=== PATIENT | female | born 1935 | race Caucasian/White ===

== ENCOUNTER 2017-03-06 12:58 | Inpatient (IN) | payer MEDICARE, OTHER ==
[2017-03-06] VITALS (13 sets, daily range): BP systolic 97–145; BP diastolic 41–63
[~2017-03-06 12:58] MED LIST: AMOX500C PO; ASPI325T8 PO; ATOR40TA59 PO; CALC-157 PO; CALC667C6 PO; FURO20TA3 PO; IBAN150T4 PO; LEVO100T5 PO; LISI-338 PO; LISI10TA2 PO; MULT-245 PO; NAPR250T2 PO; OMEG300C PO; OXYC1TAB7 PO; POTA10CA PO; VITA400C6 PO
--- NOTE | 2017-03-06 13:26 | ED.ADGEN ---
Past History Past Medical History: CAD, Hypertension Additional Past Medical Histor: syncope Past Surgical History: Appendectomy, Tonsillectomy Alcohol Use: None Drug Use: None Adult General HPI HPI Patient is a [81-year-old woman, history of hypertension, CAD, atrial fibrillation with a vChattertronic monitor in place, who presents to the emergency department with a complaint of headache and hypertension that began around 2:00 in the morning. Patient states that she awoke and was experiencing a headache across the entire back and top part of her head. She denies any vision changes, any weakness, numbness, tingling, chest pain or shortness breath. States she does feel nauseous but has had no vomiting. She denies any injuries. She states that she awoke last Friday, and had a similar episode of headache and hypertension, states her blood pressure was "200/100 and something". She states at that time she was able to be seen by her primary care provider, Dr. Prescott in the office, and he did increase her lisinopril from the grandson 10 mg daily. Patient states she is taking the medication has not experienced any problems until today when she woke this morning as described. Patient states the headache isn't persistent, prompting her to come to the ED for additional evaluation. She denies any injuries, any other symptoms except those above. No recent travel or surgery, no sick contacts or exposures. No urinary complaints. Blood pressure upon arrival to the emergency department is 193/102, heart rate of 85, oxygen saturation of 97% on room air, respiratory rate is 20 and unlabored. Review of Systems Review of Systems Constitutional: Denies fever or chills [] Eyes: Denies change in visual acuity, redness, or eye pain [] HENT: Denies nasal congestion or sore throat [] Respiratory: Denies cough or shortness of breath [] Cardiovascular: No additional information not addressed in HPI [] GI: Denies abdominal pain, nausea, vomiting, bloody stools or diarrhea [] : Denies dysuria or hematuria [] Musculoskeletal: Denies back pain or joint pain [] Integument: Denies rash or skin lesions [] Neurologic: Denies focal weakness or sensory changes. Headache. [] Endocrine: Denies polyuria or polydipsia [] Current Medications Current Medications Current Medications Medications (Trade) Dose Ordered Sig/James Start Time Stop Time Status Last Admin Dose Admin Acetaminophen (Tylenol) 1,000 mg 1X ONCE 03/06/17 14:30 03/06/17 14:31 DC Labetalol HCl (Normodyne) 10 mg 1X ONCE 03/06/17 14:30 03/06/17 14:31 DC 03/06/17 14:25 10 MG Nicardipine HCl 50 mg/Sodium Chloride 270 ml @ 0 mls/hr CONT PRN 03/06/17 14:45 Allergies Allergies Allergies Coded Allergies Type Severity Reaction Last Updated Verified fluorouracil Allergy Intermediate Rash 06/12/16 Yes venom-honey bee Allergy Intermediate SYNCOPE 06/12/16 Yes Physical Exam Physical Exam Constitutional: Well developed, well nourished, no acute distress, non-toxic appearance. [] HENT: Normocephalic, atraumatic, bilateral external ears normal, oropharynx moist, no oral exudates, nose normal. [] Eyes: PERRLA, EOMI, conjunctiva normal, no discharge. [] Neck: Normal range of motion, no tenderness, supple, no stridor. [] Cardiovascular:Heart rate regular rhythm, no murmur, S1, S2, rubs or gallops. [] Lungs & Thorax: Bilateral breath sounds clear to auscultation , no wheezing, rhonchi, rales. No chest wall crepitus or tenderness. [] Abdomen: Bowel sounds normal, soft, no tenderness, no rebound, rigidity, no guarding, no masses, no pulsatile masses. [] Skin: Warm, dry, no erythema, no rash. [] Back: No tenderness, no CVA tenderness. [] Extremities: No tenderness, no cyanosis, no clubbing, ROM intact, no edema. Negative Homans sign. [] Neurologic: Alert and oriented X 3, normal motor function, normal sensory function, no focal deficits noted. Patient with 5-5 strength in all extremities , with sensation intact, cranial nerves are intact. [] Psychologic: Affect normal, judgement normal, mood normal. [] Current Patient Data Vital Signs Vital Signs Date Time Temp Pulse Resp B/P (MAP) Pulse Ox O2 Delivery O2 Flow Rate FiO2 03/06/17 14:25 80 164/110 03/06/17 13:00 98.4 18 97 Room Air Lab Results Laboratory Tests Test 03/06/17 13:03/06/17 14:24 White Blood Count 6.1 x10^3/uL (4.0-11.0) Red Blood Count 4.98 x10^6/uL (3.50-5.40) Hemoglobin 14.4 g/dL (12.0-15.5) Hematocrit 43.6 % (36.0-47.0) Mean Corpuscular Volume 88 fL (79-100) Mean Corpuscular Hemoglobin 29 pg (25-35) Mean Corpuscular Hemoglobin Concent 33 g/dL (31-37) Red Cell Distribution Width 13.6 % (11.5-14.5) Platelet Count 196 x10^3/uL (140-400) Neutrophils (%) (Auto) 55 % (31-73) Lymphocytes (%) (Auto) 32 % (24-48) Monocytes (%) (Auto) 12 % (0-9) H Eosinophils (%) (Auto) 2 % (0-3) Basophils (%) (Auto) 1 % (0-3) Neutrophils # (Auto) 3.4 x10^3uL (1.8-7.7) Lymphocytes # (Auto) 1.9 x10^3/uL (1.0-4.8) Monocytes # (Auto) 0.7 x10^3/uL (0.0-1.1) Eosinophils # (Auto) 0.1 x10^3/uL (0.0-0.7) Basophils # (Auto) 0.0 x10^3/uL (0.0-0.2) Prothrombin Time 11.0 SEC (9.4-11.4) Prothrombin Time INR 1.1 (0.9-1.1) PTT 27 SEC (23-33) Sodium Level 141 mmol/L (136-145) Potassium Level 4.3 mmol/L (3.5-5.1) Chloride Level 108 mmol/L (98-107) H Carbon Dioxide Level 26 mmol/L (21-32) Anion Gap 7 (6-14) Blood Urea Nitrogen 22 mg/dL (7-20) H Creatinine 1.2 mg/dL (0.6-1.0) H Estimated GFR (Cockcroft-Gault) 43.0 BUN/Creatinine Ratio 18 (6-20) Glucose Level 90 mg/dL (70-99) Calcium Level 9.1 mg/dL (8.5-10.1) Total Bilirubin 0.7 mg/dL (0.2-1.0) Aspartate Amino Transferase (AST) 24 U/L (15-37) Alanine Aminotransferase (ALT) 31 U/L (14-59) Alkaline Phosphatase 77 U/L (46-116) Troponin I Quantitative < 0.017 ng/mL (0-0.055) DK-Gaw-Y-Type Natriuretic Peptide 434 pg/mL (0-449) Total Protein 7.2 g/dL (6.4-8.2) Albumin 3.8 g/dL (3.4-5.0) Albumin/Globulin Ratio 1.1 (1.0-1.7) Lipase 416 U/L (73-393) H Urine Collection Type Void Urine Color Yellow Urine Clarity Clear Urine pH 6.5 Urine Specific Ruffin 1.015 Urine Protein Neg (NEG-TRACE) Urine Glucose (UA) Neg mg/dL (NEG) Urine Ketones (Stick) Neg mg/dL (NEG) Urine Blood Neg (NEG) Urine Nitrite Neg (NEG) Urine Bilirubin Neg (NEG) Urine Urobilinogen Dipstick 0.2 mg/dL (0.2 mg/dL) Urine Leukocyte Esterase Neg (NEG) Urine RBC 3-5 /HPF (0-2) Urine WBC 1-4 /HPF (0-4) Urine Squamous Epithelial Cells Few /LPF Urine Bacteria 0 /HPF (0-FEW) Urine Hyaline Casts Few /HPF Urine Mucus Slight /LPF Urine Opiates Screen Neg (NEG) Urine Methadone Screen Neg (NEG) Urine Barbiturates Neg (NEG) Urine Phencyclidine Screen Neg (NEG) Urine Amphetamine/Methamphetamine Neg (NEG) Urine Benzodiazepines Screen Neg (NEG) Urine Cocaine Screen Neg (NEG) Urine Cannabinoids Screen Neg (NEG) Urine Ethyl Alcohol Neg (NEG) EKG EKG EC: Sinus rhythm, heart rate 82 beats/minute, right axis deviation, QTC of 445, W[place] of 200, QRS is 92, patient with contour abnormalities noted in the anterior septal leads, but no ST elevations or depressions, abnormal ECG. As interpreted by me. [] Radiology/Procedures Radiology/Procedures [][address] [address] IMAGING REPORT Signed PATIENT: APODACACARROLL GARCIA A ACCOUNT: [id number] : 1935 LOCATION: ER AGE: 81 SEX: F EXAM STATUS: PRE ER ORD. PHYSICIAN: OANH DIGGS DO REASON: HTN/DOAN PROCEDURE: PORTABLE CHEST 1V Portable chest, 03/06/2017: History: Hypertension, headache Comparison is made to a study from 06/30/2016. The heart is mildly enlarged. There is calcific plaquing of the aorta. The pulmonary vascularity is normal. There are granulomatous calcifications in the right chest. No acute infiltrates are seen. There is no evidence of pleural fluid. Surgical clips overlie the left axillary region. A small electronic device is projected over the left lower chest. IMPRESSION: 1. Mild cardiomegaly. 2. No acute abnormality is detected. DICTATED AND SIGNED BY: RUKHSANA AGEE MD DATE: 03/06/171342 CC: OANH DIGGS DO; MANJU PRESCOTT MD ~ Impressions: [place] [address] IMAGING REPORT Signed PATIENT: CARROLL APODACA ACCOUNT: [id number] : 1935 LOCATION: ER AGE: 81 SEX: F EXAM STATUS: PRE ER ORD. PHYSICIAN: OANH DIGGS DO REASON: HTN/DOAN PROCEDURE: CT HEAD WO CONTRAST CT of the head without contrast, 03/06/2017: History: Hypertension, headache Comparison is made to a study from 06/30/2016. There is mild cerebral atrophy. The ventricles are within normal limits in size. There is no shift of the midline structures. There is no evidence of acute intracranial hemorrhage or mass effect. There are minimal bilateral deep white matter lucencies compatible with chronic ischemic change. There is calcific plaquing of the distal internal carotid and vertebral arteries. There is a persistent opacity in the posterior aspect of the left maxillary sinus compatible with chronic inflammation. IMPRESSION: No acute intracranial abnormality is detected. PQRS Compliance Statement: One or more of the following individualized dose reduction techniques were utilized for this examination: 1. Automated exposure control 2. Adjustment of the mA and/or kV according to patient size 3. Use of iterative reconstruction technique DICTATED AND SIGNED BY: RUKHSANA AGEE MD DATE: 03/06/17 9601 CC: OANH DIGGS DO; MANJU PRESCOTT MD ~ Course & Med Decision Making Course & Med Decision Making Pertinent Labs and Imaging studies reviewed. (See chart for details) Patient agreeable to receiving imaging of the head, chest, ECG, and laboratory studies. ECG obtained, reveals contour normality is in the anterior septal and inferior leads, no ST elevations, no evidence of depressions. No prior for comparison. Patient is expressing chest pain as stated, CT of the head was unremarkable, on reevaluation blood pressure remained elevated, 1 6411, patient with a heart rate in the mid 80s, she was administered 10 mg of labetalol IV, with improvement of blood pressure, heart rate to the 60s and mid 50s, and resolution of her headache. Nicardipine infusion ordered, holding at this time. Creatinine mildly elevated at 1.2 with a mildly elevated blood urea nitrogen. She is agreeable for admission to the hospital for continued monitoring and evaluation with cardiology. Findings as above discussed with Dr. De La Cruz of internal medicine, patient accepted to her service as a full admission to the ICU for continued management and monitoring with cardiology consultation. Findings as above discussed with KEY Dasilva for cardiology, cardiology team will evaluate the patient in the ICU. HRS to come primarily, remained stable on the monitor, awaiting transportation to the ICU. Ridge orders entered per discussion. Final Impression Final Impression [] Problems: Dragon Disclaimer Dragon Disclaimer This electronic medical record was generated, in whole or in part, using a voice recognition dictation system. Departure: Impression: Primary Impression: Malignant hypertension Disposition: ADMITTED INPATIENT Condition: IMPROVED OANH DIGGS DO Mar 06, 2017 13:26
[2017-03-06 13:34] LABS: BASO % 1 % (0-3); EOS # 0.1 x10^3/uL (0.0-0.7); EOS % 2 % (0-3); HEMATOCRIT 43.6 % (36.0-47.0); HEMOGLOBIN 14.4 g/dL (12.0-15.5); LYMPH # 1.9 x10^3/uL (1.0-4.8); LYMPH % 32 % (24-48); MEAN CORPUSCULAR HEMOGLOBIN 29 pg (25-35); MEAN CORPUSCULAR HGB CONC 33 g/dL (31-37); MEAN CORPUSCULAR VOLUME 88 fL (79-100); MONO # 0.7 x10^3/uL (0.0-1.1); MONO % 12 % (0-9); NEUT # 3.4 x10^3uL (1.8-7.7); NEUT % 55 % (31-73); PLATELET COUNT 196 x10^3/uL (140-400); RED BLOOD COUNT 4.98 x10^6/uL (3.50-5.40); RED CELL DISTRIBUTION WIDTH 13.6 % (11.5-14.5); WHITE BLOOD COUNT 6.1 x10^3/uL (4.0-11.0)
--- NOTE | 2017-03-06 13:46 | RAD ---
CT of the head without contrast, 03/06/2017: History: Hypertension, headache Comparison is made to a study from 06/30/2016. There is mild cerebral atrophy. The ventricles are within normal limits in size. There is no shift of the midline structures. There is no evidence of acute intracranial hemorrhage or mass effect. There are minimal bilateral deep white matter lucencies compatible with chronic ischemic change. There is calcific plaquing of the distal internal carotid and vertebral arteries. There is a persistent opacity in the posterior aspect of the left maxillary sinus compatible with chronic inflammation. IMPRESSION: No acute intracranial abnormality is detected. PQRS Compliance Statement: One or more of the following individualized dose reduction techniques were utilized for this examination: 1. Automated exposure control 2. Adjustment of the mA and/or kV according to patient size 3. Use of iterative reconstruction technique
--- NOTE | 2017-03-06 13:48 | RAD ---
Portable chest, 03/06/2017: History: Hypertension, headache Comparison is made to a study from 06/30/2016. The heart is mildly enlarged. There is calcific plaquing of the aorta. The pulmonary vascularity is normal. There are granulomatous calcifications in the right chest. No acute infiltrates are seen. There is no evidence of pleural fluid. Surgical clips overlie the left axillary region. A small electronic device is projected over the left lower chest. IMPRESSION: 1. Mild cardiomegaly. 2. No acute abnormality is detected.
[2017-03-06 13:53] LABS: ALBUMIN 3.8 g/dL (3.4-5.0); ALBUMIN/GLOBULIN RATIO 1.1 (1.0-1.7); CALCIUM 9.1 mg/dL (8.5-10.1); CREATININE 1.2 mg/dL (0.6-1.0); POTASSIUM 4.3 mmol/L (3.5-5.1); TOTAL BILIRUBIN 0.7 mg/dL (0.2-1.0); TOTAL PROTEIN 7.2 g/dL (6.4-8.2)
[2017-03-06] MEDS ORDERED: ACETAMINOPHEN 500 MG TABLET PO ONE (14:30)
[2017-03-06] MEDS ORDERED: LABETALOL 20 MG/4 ML DISP.SYRIN. IVP ONE (14:30)
--- NOTE | 2017-03-06 14:30 | EKG ---
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
[2017-03-06 14:49] LABS: AMPHETAMINE/METHAMPHETAMINE NEG (NEG); BARBITURATES NEG (NEG); BENZODIAZEPINES NEG (NEG); CANNABINOIDS NEG (NEG); COCAINE NEG (NEG); METHADONE NEG (NEG); OPIATES NEG (NEG); PHENCYCLIDINE NEG (NEG)
[2017-03-06 14:51] LABS: BILIRUBIN,URINE NEG (NEG); CLARITY,URINE CLEAR; COLOR,URINE YELLOW; GLUCOSE,URINE NEG (NEG); UROBILINOGEN,URINE 0.2 mg/dL (0.2 mg/dL)
[2017-03-06 14:52] LABS: BACTERIA,URINE 0 /HPF (0-FEW); NITRITE,URINE NEG (NEG); SQUAMOUS EPITHELIAL CELL,UR FEW /LPF
[2017-03-06 14:53] LABS: HYALINE CASTS, URINE FEW /HPF
--- NOTE | 2017-03-06 16:17 | NUR ---
pt admitted to ICU bed 3. Pt is able to verbalize understanding of orientation to unit and POC. PT bp up to 160's on arrival cardene drip started at 5mg/hr. Bernardo WALL
[2017-03-06] MEDS ORDERED: DRON400T PO (16:25)
[2017-03-06] MEDS ORDERED: CITA10TA4 PO (16:25)
[2017-03-06] MEDS ORDERED: APIX5TAB3 PO (16:25)
--- NOTE | 2017-03-06 20:24 | HP ---
ADMIT DATE: 03/06/2017 REASON FOR ADMISSION: Accelerated hypertension. HISTORY OF PRESENT ILLNESS: This is an 81-year-old female with hypertension, history of atrial fibrillation and chronic low back pain, who has had some changes in her blood pressure medication. She saw Dr. Rojas last Friday. Her lisinopril was increased from 5 mg to 10 mg but also 2 weeks ago, she resumed her Aleve at 440 mg a day and so has been taking that after being off it for several months. She has been having a headache and taking her home blood pressures and getting 200s/100s and her blood pressure initially in the Emergency Department was 193/102. She also has a history, I believe, of some carotid artery disease on the left. PAST MEDICAL HISTORY: Several syncopal episodes; she wears a Medtronic in her chest; atrial fibrillation; hyperparathyroidism; adenoma with removal; hypertension; chronic low back pain; hypothyroidism; remote diagnosis of breast cancer, diagnosed in 1993; also chronic pancreatic cyst that she gets followed up on and carotid artery disease. PAST SURGICAL HISTORY: Parathyroidectomy, back surgery, left mastectomy, breast reconstructive surgery on the left, vertebroplasty. ALLERGIES: TO BEE VENOM AND FLUOROURACIL. MEDICATIONS: Were reviewed with her extensively as there are changes. She is on Multaq 400 mg twice a day, Eliquis mg twice a day, citalopram 10 mg a day, fish oil 1000 mg twice a day, Boniva 150 mg once a month, levothyroxine recently increased from 125 to 150 daily, lisinopril 10 mg daily, no longer taking Percocet and no longer taking potassium and vitamin E 400 international units daily. Medications that had been discontinued in the past were aspirin and Lasix. REVIEW OF SYSTEMS: The patient does have chronic low back pain. Review of systems are as per HPI. SOCIAL HISTORY: She is a . She does not have any children. 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 PHYSICAL EXAMINATION: VITAL SIGNS: Blood pressure on admission was 164/110, temperature 98.4, pulse 92, pulse oximetry 97% on room air and weight 147.71 pounds. GENERAL: An 81-year-old, in no acute distress. HEENT: Her hearing is normal. Her eyes are clear. Her nose is patent. Her throat is clear. There were no tongue fasciculations. NECK: Supple, without adenopathy. CARDIOVASCULAR: Regular rhythm and rate. ABDOMEN: Soft and nontender. EXTREMITIES: Without edema. There are no cords. Calf with normal feeling. LABORATORY EVALUATION: BUN was 22, creatinine 1.2 and lipase is 416. Urine shows 1-4 white cells. ASSESSMENT: 1. Accelerated hypertension secondary possibly to Aleve. 2. Elevated lipase with pancreatic cyst, but is asymptomatic. 3. History of breast cancer. 4. Hypertension. 5. Osteoarthritis and low back pain. PLAN: Discontinue the Aleve. She is currently on a Cardizem drip and we will titrate down and see how she is in the morning. JOY LUNA DO DR: CHRISTINE/arvin JOB#: [id number] / [id number]
[2017-03-06] MEDS ORDERED: ATORVASTATIN CALCIUM 20 MG TABLET PO SCH (21:00)
[2017-03-06] MEDS ORDERED: OMEGA-3 FATTY ACIDS/FISH OIL 1,000 MG CAPSULE. PO SCH (21:00)
[2017-03-06] MEDS ORDERED: MULTIVITAMIN with MINERAL TABLET. PO SCH (21:00)
[2017-03-06] MEDS ORDERED: LISINOPRIL 10 MG TABLET PO SCH (21:00)
[2017-03-06] MEDS ORDERED: CALCIUM CARB/VIT D3 500/200 TABLET PO SCH (21:00)
[2017-03-06] MEDS: DRONEDARONE HCL 400 MG TABLET PO SCH (21:13)
[2017-03-06] MEDS: APIXABAN 5 MG TABLET. PO SCH (21:13)
[2017-03-07] VITALS (13 sets, daily range): BP systolic 101–159; BP diastolic 50–77
[2017-03-07 06:58] LABS: BASO % 1 % (0-3); EOS # 0.1 x10^3/uL (0.0-0.7); EOS % 3 % (0-3); HEMATOCRIT 39.7 % (36.0-47.0); HEMOGLOBIN 12.8 g/dL (12.0-15.5); LYMPH # 1.6 x10^3/uL (1.0-4.8); LYMPH % 38 % (24-48); MEAN CORPUSCULAR HEMOGLOBIN 29 pg (25-35); MEAN CORPUSCULAR HGB CONC 32 g/dL (31-37); MEAN CORPUSCULAR VOLUME 88 fL (79-100); MONO # 0.6 x10^3/uL (0.0-1.1); MONO % 14 % (0-9); NEUT # 1.8 x10^3uL (1.8-7.7); NEUT % 44 % (31-73); PLATELET COUNT 179 x10^3/uL (140-400); RED CELL DISTRIBUTION WIDTH 13.6 % (11.5-14.5); WHITE BLOOD COUNT 4.1 x10^3/uL (4.0-11.0)
[2017-03-07 07:10] LABS: ALBUMIN 3.3 g/dL (3.4-5.0); CALCIUM 9.3 mg/dL (8.5-10.1); CREATININE 1.2 mg/dL (0.6-1.0); MAGNESIUM 2.1 mg/dL (1.8-2.4); POTASSIUM 4.2 mmol/L (3.5-5.1); TOTAL BILIRUBIN 0.7 mg/dL (0.2-1.0); TOTAL PROTEIN 6.5 g/dL (6.4-8.2)
[2017-03-07] MEDS ORDERED: VITAMIN E. 400 UNIT CAPSULE. PO ONE (07:25)
[2017-03-07] MEDS: APIXABAN 5 MG TABLET. PO SCH (07:28)
[2017-03-07] MEDS: DRONEDARONE HCL 400 MG TABLET PO SCH (07:29)
[2017-03-07] MEDS ORDERED: LEVOTHYROXINE 150 MCG TABLET PO SCH (07:30)
[2017-03-07] MEDS ORDERED: CITALOPRAM 10 MG TABLET. PO SCH (09:00)
[2017-03-07] MEDS ORDERED: VITAMIN E. 400 UNIT CAPSULE. PO SCH (09:00)
--- NOTE | 2017-03-07 09:05 | PDOC2 ---
JEAN MARIE MCLAUGHLIN APRN 03/07/17 0905: CONSULT Date of Admission DATE: 03/07/17 TIME: 09:02 Reason for Consult: accelerated hypertension Problem List Problems Medical Problems: (1) Malignant hypertension Status: Acute History of Present Illness Mrs Ayala is an 81 year old female who presents with complaints of elevated blood pressure and headache. She reports having headache off and on for about 2 weeks. She was seen by her PCP and found to have more elevated than normal blood pressure so lisinopril was increased about 1 week ago. Yesterday she woke with significant headache and on taking her blood pressure, found it to be significantly elevated with systolic pressure >200mmHg so presented to the ED. She was placed on Cardene drip and consult called. Cardene was stopped yesterday afternoon as her pressure normalized. This am she reports continued mild headache, denies chest discomfort, dyspnea, palpitations, lightheadedness or presyncope. She denies congestive symptoms. She reports being very active without problems. She normally follows with Dr Morgan. Past Medical History syncope with failed tilt table test. treated with compression hose. Last syncopal episode in June. paroxysmal atrial fibrillation [employer] monitored by [facility]. No reoccurrence of atrial fibrillation since June as per her report. hyperparathyroidism; adenoma with removal; hypertension; chronic low back pain; hypothyroidism; remote diagnosis of breast cancer, diagnosed in 1993; also chronic pancreatic cyst carotid artery disease. Past Surgical History Parathyroidectomy, back surgery, left mastectomy, breast reconstructive surgery on the left, vertebroplasty. 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, no illicit drugs Current Medications Current Medications Labetalol HCl (Normodyne) 10 mg 1X ONCE IVP Last administered on 03/06/17 14: 25; Start 03/06/17 at 14:30; Stop 03/06/17 at 14:31; Status DC Nicardipine HCl 50 mg/Sodium Chloride 270 ml @ 0 mls/hr CONT PRN IV SEE I/O RECORD; Start 03/06/17 at 14:45 Acetaminophen (Tylenol) 1,000 mg 1X ONCE PO ; Start 03/06/17 at 14:30; Stop at 14:31; Status DC Apixaban (Eliquis) 5 mg BID PO Last administered on 03/07/17 07:28; Start at 21:00 Calcium/Vitamin D (Oscal D 500mg/ 200uts) 1 tab HS PO Last administered on 03/06 21:13; Start 03/06/17 at 21:00 Citalopram Hydrobromide (CeleXA) 10 mg DAILY PO Last administered on 03/07/17 07:29; Start 03/07/17 at 09:00 Dronedarone (Multaq) 400 mg BID PO Last administered on 03/07/17 07:29; Start 03/06/17 at 21:00 Levothyroxine Sodium (Synthroid) 150 mcg DAILYAC PO Last administered on 07:28; Start 03/07/17 at 07:30 Lisinopril (Prinivil) 10 mg QHS PO Last administered on 03/06/17 21:14; Start 03/06/17 at 21:00 Vitamin E 400 unit DAILY PO ; Start 03/07/17 at 09:00 Atorvastatin Calcium (Lipitor) 40 mg QHS PO Last administered on 03/06/17 21: 15; Start 03/06/17 at 21:00 Multivitamins/ Calcium (Thera-M Plus) 1 tab HS PO Last administered on 21:14; Start 03/06/17 at 21:00 Fish Oil (Fish Oil) 1,000 mg HS PO Last administered on 03/06/17 21:14; Start 03/06/17 at 21:00 Vitamin E 400 unit STK-MED ONCE PO Last administered on 03/07/17 07:28; Start 03/07/17 at 07:25; Stop 03/07/17 at 07:26; Status DC Active Scripts Active Oxycodone-Acetaminophen 5-325 (Oxycodone Hcl/Acetaminophen) 1 Each Tablet 0.5 Tab PO PRN Q8HRS PRN Amoxicillin 500 Mg Capsule 500 Mg PO BID Reported Citalopram Hbr (Citalopram Hydrobromide) 10 Mg Tablet 10 Mg PO DAILY Eliquis (Apixaban) 5 Mg Tablet 5 Mg PO BID Multaq (Dronedarone Hcl) 400 Mg Tablet 1 Tab PO BID Calcium 500 + Vit D 200 Tablet (Calcium Carbonate/Vitamin D3) 1 Each Tablet 1 Each PO HS LAST DOSE GIVEN: NOT GIVEN THIS ADMISSION NEXT DOSE DUE: DATE: TODAY TIME: PM Lisinopril 10 Mg Tablet 10 Mg PO QHS LAST DOSE GIVEN: NOT GIVEN THIS ADMISSION NEXT DOSE DUE: DATE: TODAY TIME: AT BEDTIME Multi Vitamin Daily (Multivitamin) 1 Each Tablet 1 Each PO HS LAST DOSE GIVEN: NOT GIVEN THIS ADMISSION NEXT DOSE DUE: DATE: TODAY TIME: PM Vitamin E (Vitamin E (Dl,Tocopheryl Acet)) 400 Unit Capsule 400 Unit PO DAILY LAST DOSE GIVEN: DATE: TODAY TIME: AM NEXT DOSE DUE: DATE: TOMORROW TIME: AM Naproxen 250 Mg Tablet 440 Mg PO DAILY for pain LAST DOSE GIVEN: DATE: TODAY TIME: AM NEXT DOSE DUE: DATE: TOMORR TIME: AM Levothyroxine Sodium 100 Mcg Tablet 150 Mcg PO DAILYAC for low thyroid LAST DOSE GIVEN: NOT GIVEN THIS ADMISSION NEXT DOSE DUE: DATE: ORR TIME: AM Fish Oil ([place]-3 Fatty Acids) 300 Mg Capsule 1,000 Mg PO QHS LAST DOSE GIVEN: NOT GIVEN THIS ADMISSION NEXT DOSE DUE: DATE: TODAY TIME: AT BEDTIME Atorvastatin Calcium 40 Mg Tablet 40 Mg PO QHS for high cholesterol LAST DOSE GIVEN: NOT GIVEN THIS ADMISSION NEXT DOSE DUE: DATE: TODAY TIME: AT BEDTIME Allergies: Coded Allergies: fluorouracil (Verified Allergy, Intermediate, Rash, 06/12/16) venom-honey bee (Verified Allergy, Intermediate, SYNCOPE, 06/12/16) Review of System as per HPI or negative General: Alert, Oriented X3, Cooperative, No acute distress HEENT: Atraumatic, EOMI Lungs: Clear to auscultation, Normal air movement Heart: Regular rate, Normal S1, Normal S2 Abdomen: Normal bowel sounds, Soft Extremities: No cyanosis, No edema, Normal pulses Neuro: Normal speech, Strength at 5/5 X4 ext Psych/Mental Status: Mental status NL, Mood NL VITALS Vital Signs Date Time Temp Pulse Resp B/P (MAP) Pulse Ox O2 Delivery O2 Flow Rate FiO2 03/07/17 08:00 69 20 159/62 (94) 98 Room Air 03/07/17 05:20 97.8 Labs Laboratory Tests Test 03/06/17 13:19 03/06/17 14:24 03/06/17 15:42 03/07/17 05:50 White Blood Count 6.1 x10^3/uL (4.0-11.0) 4.1 x10^3/uL (4.0-11.0) Red Blood Count 4.98 x10^6/uL (3.50-5.40) 4.50 x10^6/uL (3.50-5.40) Hemoglobin 14.4 g/dL (12.0-15.5) 12.8 g/dL (12.0-15.5) Hematocrit 43.6 % (36.0-47.0) 39.7 % (36.0-47.0) Mean Corpuscular Volume 88 fL (79-100) 88 fL (79-100) Mean Corpuscular Hemoglobin 29 pg (25-35) 29 pg (25-35) Mean Corpuscular Hemoglobin Concent 33 g/dL (31-37) 32 g/dL (31-37) Red Cell Distribution Width 13.6 % (11.5-14.5) 13.6 % (11.5-14.5) Platelet Count 196 x10^3/uL (140-400) 179 x10^3/uL (140-400) Neutrophils (%) (Auto) 55 % (31-73) 44 % (31-73) Lymphocytes (%) (Auto) 32 % (24-48) 38 % (24-48) Monocytes (%) (Auto) 12 % (0-9) 14 % (0-9) Eosinophils (%) (Auto) 2 % (0-3) 3 % (0-3) Basophils (%) (Auto) 1 % (0-3) 1 % (0-3) Neutrophils # (Auto) 3.4 x10^3uL (1.8-7.7) 1.8 x10^3uL (1.8-7.7) Lymphocytes # (Auto) 1.9 x10^3/uL (1.0-4.8) 1.6 x10^3/uL (1.0-4.8) Monocytes # (Auto) 0.7 x10^3/uL (0.0-1.1) 0.6 x10^3/uL (0.0-1.1) Eosinophils # (Auto) 0.1 x10^3/uL (0.0-0.7) 0.1 x10^3/uL (0.0-0.7) Basophils # (Auto) 0.0 x10^3/uL (0.0-0.2) 0.0 x10^3/uL (0.0-0.2) Prothrombin Time 11.0 SEC (9.4-11.4) Prothromb Time International Ratio 1.1 (0.9-1.1) Activated Partial Thromboplast Time 27 SEC (23-33) Sodium Level 141 mmol/L (136-145) 141 mmol/L (136-145) Potassium Level 4.3 mmol/L (3.5-5.1) 4.2 mmol/L (3.5-5.1) Chloride Level 108 mmol/L (98-107) 108 mmol/L (98-107) Carbon Dioxide Level 26 mmol/L (21-32) 28 mmol/L (21-32) Anion Gap 7 (6-14) 5 (6-14) Blood Urea Nitrogen 22 mg/dL (7-20) 20 mg/dL (7-20) Creatinine 1.2 mg/dL (0.6-1.0) 1.2 mg/dL (0.6-1.0) Estimated GFR (Cockcroft-Gault) 43.0 43.0 BUN/Creatinine Ratio 18 (6-20) 17 (6-20) Glucose Level 90 mg/dL (70-99) 80 mg/dL (70-99) Calcium Level 9.1 mg/dL (8.5-10.1) 9.3 mg/dL (8.5-10.1) Total Bilirubin 0.7 mg/dL (0.2-1.0) 0.7 mg/dL (0.2-1.0) Aspartate Amino Transf (AST/SGOT) 24 U/L (15-37) 21 U/L (15-37) Alanine Aminotransferase (ALT/SGPT) 31 U/L (14-59) 29 U/L (14-59) Alkaline Phosphatase 77 U/L (46-116) 62 U/L (46-116) Troponin I Quantitative < 0.017 ng/mL (0-0.055) AT-Wgj-H-Type Natriuretic Peptide 434 pg/mL (0-449) Total Protein 7.2 g/dL (6.4-8.2) 6.5 g/dL (6.4-8.2) Albumin 3.8 g/dL (3.4-5.0) 3.3 g/dL (3.4-5.0) Albumin/Globulin Ratio 1.1 (1.0-1.7) 1.0 (1.0-1.7) Lipase 416 U/L (73-393) 407 U/L (73-393) Urine Collection Type Void Urine Color Yellow Urine Clarity Clear Urine pH 6.5 Urine Specific [place] 1.015 Urine Protein Neg (NEG-TRACE) Urine Glucose (UA) Neg mg/dL (NEG) Urine Ketones (Stick) Neg mg/dL (NEG) Urine Blood Neg (NEG) Urine Nitrite Neg (NEG) Urine Bilirubin Neg (NEG) Urine Urobilinogen Dipstick 0.2 mg/dL (0.2 mg/dL) Urine Leukocyte Esterase Neg (NEG) Urine RBC 3-5 /HPF (0-2) Urine WBC 1-4 /HPF (0-4) Urine Squamous Epithelial Cells Few /LPF Urine Bacteria 0 /HPF (0-FEW) Urine Hyaline Casts Few /HPF Urine Mucus Slight /LPF Urine Opiates Screen Neg (NEG) Urine Methadone Screen Neg (NEG) Urine Barbiturates Neg (NEG) Urine Phencyclidine Screen Neg (NEG) Urine Amphetamine/Methamphetamine Neg (NEG) Urine Benzodiazepines Screen Neg (NEG) Urine Cocaine Screen Neg (NEG) Urine Cannabinoids Screen Neg (NEG) Urine Ethyl Alcohol Neg (NEG) Nasal Screen MRSA (PCR) Negative (Negative) Magnesium Level 2.1 mg/dL (1.8-2.4) Images EKG - sinus rhythm, delayed R progression, non specific abn. CXR - no acute abn CT head - no acute abn. Assessment/Plan 1. accelerated hypertension - off cardene drip. blood pressure controlled. history of hypotension with lisinopril 10mg, monitor. PRN hydralazine if pressure elevation reoccurs. check echo. 2. paroxysmal atrial fibrillation - remains in sinus rhythm on Multaq and Eliquis 3. history of recurrent syncope and failed tilt test, managed with compression hose and follows with [facility] 4. elevated lipase - per PCP 5. cephalgia - toradol x 1 Blood pressure improved off cardene drip. ? if pain contributing to elevated pressure. monitor on current antihypertensives and adjust as necessary. echo for LV function. Problems: CLARENCE LOPEZ MD 03/07/17 1631: CONSULT Allergies: Coded Allergies: fluorouracil (Verified Allergy, Intermediate, Rash, 06/12/16) venom-honey bee (Verified Allergy, Intermediate, SYNCOPE, 06/12/16) Assessment/Plan Patient seen and examined. Agree with LEPIDOPTERIST's assessment and plan Accelerated hypertension improved since admission. Off Cardene drip. Continue oral and hypertensives. 2-D echo showed LVEF 45-50%. Clinically well compensated. Paroxysmal atrial fibrillation presently in sinus rhythm. Continue current medical regimen. Neurocardiogenic syncope stable with conservative measures. Okay for discharge from cardiac standpoint. Thank you for your consultation. Problems: JEAN MARIE MCLAUGHLIN APRN Mar 07, 2017 09:05 CLARENCE LOPEZ MD Mar 07, 2017 16:31
[2017-03-07] MEDS ORDERED: KETOROLAC 30 MG/ML VIAL. ONE (09:27)
[2017-03-07] MEDS ORDERED: KETOROLAC 30 MG/ML VIAL. IV ONE (09:30)
--- NOTE | 2017-03-07 13:42 | RAD ---
CT of the abdomen and pelvis without contrast, 03/07/2017: History: Abdominal pain Multidetector CT imaging was performed following oral ingestion of contrast. No IV contrast was administered due to the patient's known renal insufficiency. There is mild linear atelectasis and/or scarring in the lung bases. There is a moderate-sized hiatal hernia. The unopacified liver shows no abnormality. The gallbladder is unremarkable. There is a vague 13 mm low-density lesion in the pancreas at the junction of the pancreatic head and body. It was better defined on the postcontrast scans from 06/12/2016. It appears to be unchanged. No peripancreatic inflammation is evident. The spleen is of normal size. The unopacified kidneys are unremarkable. There is moderate aortic calcific plaquing. Artifacts arising from spinal rods and screws degrade image quality in the lower abdominal region. No abdominal or pelvic adenopathy is seen. The cecum is low-lying in the pelvis. The bowel loops are not dilated. No free air or significant free fluid is evident in the abdomen or pelvis. Changes of a previous posterior spinal fusion and instrumentation are again noted in the lower lumbar spine. Again noted is a vertebral compression fracture at T12 with associated vertebroplasty change. There are moderate multilevel degenerative changes. IMPRESSION: 1. Unchanged small cystic lesion in the pancreas. 2. Moderate sized hiatal hernia. 3. No acute abdominal or pelvic abnormality is detected. PQRS Compliance Statement: One or more of the following individualized dose reduction techniques were utilized for this examination: 1. Automated exposure control 2. Adjustment of the mA and/or kV according to patient size 3. Use of iterative reconstruction technique
--- NOTE | 2017-03-07 14:16 | PDOC3 ---
Discharge Summary Visit Information Date of Admission: Mar 06, 2017 Date of Discharge: Mar 07, 2017 Final Diagnosis Problems Medical Problems: (1) Malignant hypertension Status: Acute Accelerated hypertension secondary possibly to Aleve. 2. Elevated lipase with pancreatic cyst, but is asymptomatic. 3. History of breast cancer. 4. Hypertension. 5. Osteoarthritis and low back pain. 6. headache- ct head neg Problems: Brief Hospital Course Allergies Allergies Coded Allergies Type Severity Reaction Last Updated Verified fluorouracil Allergy Intermediate Rash 06/12/16 Yes venom-honey bee Allergy Intermediate SYNCOPE 06/12/16 Yes Vital Signs Vital Signs Date Time Temp Pulse Resp B/P (MAP) Pulse Ox O2 Delivery O2 Flow Rate FiO2 03/07/17 11:14 98.1 03/07/17 11:00 Room Air 03/07/17 08:00 69 20 159/62 (94) 98 Lab Results Laboratory Tests Test 03/06/17 13:19 03/06/17 14:24 03/06/17 15:42 03/07/17 05:50 White Blood Count 6.1 x10^3/uL (4.0-11.0) 4.1 x10^3/uL (4.0-11.0) Red Blood Count 4.98 x10^6/uL (3.50-5.40) 4.50 x10^6/uL (3.50-5.40) Hemoglobin 14.4 g/dL (12.0-15.5) 12.8 g/dL (12.0-15.5) Hematocrit 43.6 % (36.0-47.0) 39.7 % (36.0-47.0) Mean Corpuscular Volume 88 fL (79-100) 88 fL (79-100) Mean Corpuscular Hemoglobin 29 pg (25-35) 29 pg (25-35) Mean Corpuscular Hemoglobin Concent 33 g/dL (31-37) 32 g/dL (31-37) Red Cell Distribution Width 13.6 % (11.5-14.5) 13.6 % (11.5-14.5) Platelet Count 196 x10^3/uL (140-400) 179 x10^3/uL (140-400) Neutrophils (%) (Auto) 55 % (31-73) 44 % (31-73) Lymphocytes (%) (Auto) 32 % (24-48) 38 % (24-48) Monocytes (%) (Auto) 12 % (0-9) 14 % (0-9) Eosinophils (%) (Auto) 2 % (0-3) 3 % (0-3) Basophils (%) (Auto) 1 % (0-3) 1 % (0-3) Neutrophils # (Auto) 3.4 x10^3uL (1.8-7.7) 1.8 x10^3uL (1.8-7.7) Lymphocytes # (Auto) 1.9 x10^3/uL (1.0-4.8) 1.6 x10^3/uL (1.0-4.8) Monocytes # (Auto) 0.7 x10^3/uL (0.0-1.1) 0.6 x10^3/uL (0.0-1.1) Eosinophils # (Auto) 0.1 x10^3/uL (0.0-0.7) 0.1 x10^3/uL (0.0-0.7) Basophils # (Auto) 0.0 x10^3/uL (0.0-0.2) 0.0 x10^3/uL (0.0-0.2) Prothrombin Time 11.0 SEC (9.4-11.4) Prothromb Time International Ratio 1.1 (0.9-1.1) Activated Partial Thromboplast Time 27 SEC (23-33) Sodium Level 141 mmol/L (136-145) 141 mmol/L (136-145) Potassium Level 4.3 mmol/L (3.5-5.1) 4.2 mmol/L (3.5-5.1) Chloride Level 108 mmol/L (98-107) 108 mmol/L (98-107) Carbon Dioxide Level 26 mmol/L (21-32) 28 mmol/L (21-32) Anion Gap 7 (6-14) 5 (6-14) Blood Urea Nitrogen 22 mg/dL (7-20) 20 mg/dL (7-20) Creatinine 1.2 mg/dL (0.6-1.0) 1.2 mg/dL (0.6-1.0) Estimated GFR (Cockcroft-Gault) 43.0 43.0 BUN/Creatinine Ratio 18 (6-20) 17 (6-20) Glucose Level 90 mg/dL (70-99) 80 mg/dL (70-99) Calcium Level 9.1 mg/dL (8.5-10.1) 9.3 mg/dL (8.5-10.1) Total Bilirubin 0.7 mg/dL (0.2-1.0) 0.7 mg/dL (0.2-1.0) Aspartate Amino Transf (AST/SGOT) 24 U/L (15-37) 21 U/L (15-37) Alanine Aminotransferase (ALT/SGPT) 31 U/L (14-59) 29 U/L (14-59) Alkaline Phosphatase 77 U/L (46-116) 62 U/L (46-116) Troponin I Quantitative < 0.017 ng/mL (0-0.055) FW-Aec-C-Type Natriuretic Peptide 434 pg/mL (0-449) Total Protein 7.2 g/dL (6.4-8.2) 6.5 g/dL (6.4-8.2) Albumin 3.8 g/dL (3.4-5.0) 3.3 g/dL (3.4-5.0) Albumin/Globulin Ratio 1.1 (1.0-1.7) 1.0 (1.0-1.7) Lipase 416 U/L (73-393) 407 U/L (73-393) Urine Collection Type Void Urine Color Yellow Urine Clarity Clear Urine pH 6.5 Urine Specific [place] 1.015 Urine Protein Neg (NEG-TRACE) Urine Glucose (UA) Neg mg/dL (NEG) Urine Ketones (Stick) Neg mg/dL (NEG) Urine Blood Neg (NEG) Urine Nitrite Neg (NEG) Urine Bilirubin Neg (NEG) Urine Urobilinogen Dipstick 0.2 mg/dL (0.2 mg/dL) Urine Leukocyte Esterase Neg (NEG) Urine RBC 3-5 /HPF (0-2) Urine WBC 1-4 /HPF (0-4) Urine Squamous Epithelial Cells Few /LPF Urine Bacteria 0 /HPF (0-FEW) Urine Hyaline Casts Few /HPF Urine Mucus Slight /LPF Urine Opiates Screen Neg (NEG) Urine Methadone Screen Neg (NEG) Urine Barbiturates Neg (NEG) Urine Phencyclidine Screen Neg (NEG) Urine Amphetamine/Methamphetamine Neg (NEG) Urine Benzodiazepines Screen Neg (NEG) Urine Cocaine Screen Neg (NEG) Urine Cannabinoids Screen Neg (NEG) Urine Ethyl Alcohol Neg (NEG) Nasal Screen MRSA (PCR) Negative (Negative) Magnesium Level 2.1 mg/dL (1.8-2.4) Brief Hospital Course Ms. Ayala is a 81 old female who resumed aleve a few weeks ago and noticed her bp going up. ON the day of admission she had a severe headache and her bp was elevated at home an at the hospital. She was initially put on a Cardene drip which helped. Her bp came down nicely. It was noted on the labs that her lipase was mildly elevated and there were no previous to compare. She has a history of a pancreatic cyst and the CT of her abdomen was negative for any changes. She was seen in consultation by cardiology and a echo was pending at the time of discharge. She is to see Dr. Rojas and follow her bp off the Aleve which may have interfered with her bp medication. I advised her to take tylenol for her arthritis. Discharge Information Condition at Discharge: Improved Disposition/Orders: D/C to Home Dischare Medications Current Medications Labetalol HCl (Normodyne) 10 mg 1X ONCE IVP Last administered on 03/06/17 14: 25; Start 03/06/17 at 14:30; Stop 03/06/17 at 14:31; Status DC Nicardipine HCl 50 mg/Sodium Chloride 270 ml @ 0 mls/hr CONT PRN IV SEE I/O RECORD; Start 03/06/17 at 14:45 Acetaminophen (Tylenol) 1,000 mg 1X ONCE PO ; Start 03/06/17 at 14:30; Stop at 14:31; Status DC Apixaban (Eliquis) 5 mg BID PO Last administered on 03/07/17 07:28; Start at 21:00 Calcium/Vitamin D (Oscal D 500mg/ 200uts) 1 tab HS PO Last administered on 03/06 21:13; Start 03/06/17 at 21:00 Citalopram Hydrobromide (CeleXA) 10 mg DAILY PO Last administered on 03/07/17 07:29; Start 03/07/17 at 09:00 Dronedarone (Multaq) 400 mg BID PO Last administered on 03/07/17 07:29; Start 03/06/17 at 21:00 Levothyroxine Sodium (Synthroid) 150 mcg DAILYAC PO Last administered on 07:28; Start 03/07/17 at 07:30 Lisinopril (Prinivil) 10 mg QHS PO Last administered on 03/06/17 21:14; Start 03/06/17 at 21:00 Vitamin E 400 unit DAILY PO ; Start 03/07/17 at 09:00 Atorvastatin Calcium (Lipitor) 40 mg QHS PO Last administered on 03/06/17 21: 15; Start 03/06/17 at 21:00 Multivitamins/ Calcium (Thera-M Plus) 1 tab HS PO Last administered on 21:14; Start 03/06/17 at 21:00 Fish Oil (Fish Oil) 1,000 mg HS PO Last administered on 03/06/17 21:14; Start 03/06/17 at 21:00 Vitamin E 400 unit STK-MED ONCE PO Last administered on 03/07/17 07:28; Start 03/07/17 at 07:25; Stop 03/07/17 at 07:26; Status DC Ketorolac Tromethamine (Toradol) 30 mg 1X ONCE IV Last administered on 09:29; Start 03/07/17 at 09:30; Stop 03/07/17 at 09:31; Status DC Ketorolac Tromethamine (Toradol) 30 mg STK-MED ONCE .ROUTE ; Start 03/07/17 at 09:27; Stop 03/07/17 at 09:28; Status DC Active Scripts Active Oxycodone-Acetaminophen 5-325 (Oxycodone Hcl/Acetaminophen) 1 Each Tablet 0.5 Tab PO PRN Q8HRS PRN Reported Citalopram Hbr (Citalopram Hydrobromide) 10 Mg Tablet 10 Mg PO DAILY Eliquis (Apixaban) 5 Mg Tablet 5 Mg PO BID Multaq (Dronedarone Hcl) 400 Mg Tablet 1 Tab PO BID Calcium 500 + Vit D 200 Tablet (Calcium Carbonate/Vitamin D3) 1 Each Tablet 1 Each PO HS LAST DOSE GIVEN: NOT GIVEN THIS ADMISSION NEXT DOSE DUE: DATE: TODAY TIME: PM Lisinopril 10 Mg Tablet 10 Mg PO QHS LAST DOSE GIVEN: NOT GIVEN THIS ADMISSION NEXT DOSE DUE: DATE: TODAY TIME: AT BEDTIME Multi Vitamin Daily (Multivitamin) 1 Each Tablet 1 Each PO HS LAST DOSE GIVEN: NOT GIVEN THIS ADMISSION NEXT DOSE DUE: DATE: TODAY TIME: PM Vitamin E (Vitamin E (Dl,Tocopheryl Acet)) 400 Unit Capsule 400 Unit PO DAILY LAST DOSE GIVEN: DATE: TIME: AM NEXT DOSE DUE: DATE: TOMORROW TIME: AM Levothyroxine Sodium 100 Mcg Tablet 150 Mcg PO DAILYAC for low thyroid LAST DOSE GIVEN: NOT GIVEN THIS ADMISSION NEXT DOSE DUE: DATE: TOMORROW TIME: AM Fish Oil ([place]-3 Fatty Acids) 300 Mg Capsule 1,000 Mg PO QHS LAST DOSE GIVEN: NOT GIVEN THIS ADMISSION NEXT DOSE DUE: DATE: TODAY TIME: AT BEDTIME Atorvastatin Calcium 40 Mg Tablet 40 Mg PO QHS for high cholesterol LAST DOSE GIVEN: NOT GIVEN THIS ADMISSION NEXT DOSE DUE: DATE: TIME: AT BEDTIME Patient Instructions Patient Instuctions see [facility] discharge. The findings were discussed with her by myself and the nursing staff. JOY LUNA DO Mar 07, 2017 14:16
--- NOTE | 2017-03-07 15:30 | CARD ---
APPROVED REPORT EXAM: Two-dimensional and M-mode echocardiogram with Doppler and color Doppler. Other Information Quality : Good INDICATION Hypertension/HCVD 2D DIMENSIONS RVDd2.9 (2.9-3.5cm)Left Atrium(2D)4.2 (1.6-4.0cm) IVSd1.0 (0.7-1.1cm)Aortic Root(2D)2.7 (2.0-3.7cm) LVDd4.7 (3.9-5.9cm)LVOT Diameter1.7 (1.8-2.4cm) PWd1.1 (0.7-1.1cm)LVDs3.6 (2.5-4.0cm) FS (%) 22.5 %SV46.3 ml Aortic Valve AoV Peak Justino.138.6cm/sAoV VTI30.3cm AO Peak GR.7.7mmHgLVOT Peak Justino.82.1cm/s LVOT VTI 17.39cmAO Mean GR.5mmHg OMER (VMAX)1.39cm2 Mitral Valve MV E Kgytbyqx542.5cm/sMV DECEL [id number] MV A Rbirotzy10.6cm/sE/A Ratio1.5 Tricuspid Valve TR P. Trhlycss478ly/sRAP [id number] TR Peak Gr.[id number] Pulmonary Vein S1 Nfeajabx46.0cm/sD2 Ywwezpvk11.0cm/s LEFT VENTRICLE The left ventricle is normal size. There is normal left ventricular wall thickness. The LV has mildly decreased systolic function. The Ejection Fraction is 45-50%. There is mild global hypokinesis. RIGHT VENTRICLE The right ventricle is normal size. The right ventricular systolic function is normal. ATRIA The left atrium is mildly dilated. The right atrium size is normal. The interatrial septum is intact with no evidence for an atrial septal defect or patent foramen ovale as noted on 2-D or Doppler imagi ng. AORTIC VALVE The aortic valve is calcified but opens well. Doppler and Color Flow revealed no significant aortic r egurgitation. There is no significant aortic valvular stenosis. There is no aortic valvular vegetatio n. MITRAL VALVE The mitral valve is calcified but opens well. There is no evidence of mitral valve prolapse. There is no mitral valve stenosis. Doppler and Color-flow revealed moderate mitral regurgitation. TRICUSPID VALVE The tricuspid valve is normal in structure and function. Doppler and Color Flow revealed mild tricusp id regurgitation. The PA pressure was estimated at 50 mmHg. There is no tricuspid valve stenosis. PULMONIC VALVE The pulmonary valve is normal in structure and function. Doppler and Color Flow revealed trace pulmon ic valvular regurgitation. There is no pulmonic valvular stenosis. GREAT VESSELS The aortic root is normal in size. The ascending aorta is normal in size. The IVC is normal in size a nd collapses >50% with inspiration. PERICARDIAL EFFUSION There is no evidence of significant pericardial effusion. Critical Notification Critical Value: No <Conclusion> The left ventricle is normal size. The LV has mildly decreased systolic function. The Ejection Fraction is 45-50%. There is mild global hypokinesis. There is no significant aortic valvular stenosis. Doppler and Color Flow revealed no significant aortic regurgitation. Doppler and Color-flow revealed moderate mitral regurgitation. Doppler and Color Flow revealed mild tricuspid regurgitation. The PA pressure was estimated at 50 mmHg.
--- NOTE | 2017-03-07 17:36 | NUR ---
PT dc to home, pt verbalize understanding of discharge instructions and medications. PT will follow up next week with Dr Campoverde. Coretta WALL
== END 2017-03-07 17:40 | disposition home or self-care (01) | DRG 305 ==
LOC: ER 12:58 → ICU 14:23
PROVIDERS: ADMIT Family Medicine; ATTEND Family Medicine
DX: I15.8 Other secondary hypertension (principal); K86.2 Cyst of pancreas; I48.0 Paroxysmal atrial fibrillation; I10 Essential (primary) hypertension; R55 Syncope and collapse; E03.9 Hypothyroidism, unspecified; E89.2 Postprocedural hypoparathyroidism; I25.10 Atherosclerotic heart disease of native coronary artery without angina pectoris; T39.315A Adverse effect of propionic acid derivatives, initial encounter; E21.3 Hyperparathyroidism, unspecified; M19.90 Unspecified osteoarthritis, unspecified site; M54.5 Low back pain; R74.8 Abnormal levels of other serum enzymes; G89.29 Other chronic pain; Z85.3 Personal history of malignant neoplasm of breast; Z88.8 Allergy status to other drugs, medicaments and biological substances; Z91.030 Bee allergy status; Z79.01 Long term (current) use of anticoagulants; Z82.49 Family history of ischemic heart disease and other diseases of the circulatory system; Z79.899 Other long term (current) drug therapy; Z90.12 Acquired absence of left breast and nipple; Y92.89 Other specified places as the place of occurrence of the external cause
CPT/HCPCS: 36415; 70450; 71010; 74176; 80053; 80307; 81001; 83690; 83735; 83880; 84484; 85025; 85610; 85730; 87641; 93005; 93306; 96374; J1885; J3490; 99285-25; G0479

== ENCOUNTER 2017-03-08 02:45 | Emergency (ER) | payer MEDICARE, OTHER ==
[~2017-03-08] VITALS: Ht 167.6 cm; Wt 67.0 kg
[~2017-03-08 02:45] MED LIST changes: +APIX5TAB3 PO; +CITA10TA4 PO; +DRON400T PO
[2017-03-08] MEDS ORDERED: NITROGLYCERIN OINT 1 GM PACKET. TP ONE (03:45)
[2017-03-08] MEDS ORDERED: ACETAMINOPHEN 325 MG TABLET PO ONE (03:45)
--- NOTE | 2017-03-08 04:21 | PHYS DOC ---
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 Patient states that for the past week she's been having blood pressure difficulties. She saw her primary care doctor Dr Rojas last Friday complaining of occipital headaches and home blood pressure readings 200/100 something. At that time her lisinopril was increased from 5 mg to 10 mg daily and the patient has been taking the medication as prescribed. 2 days ago on March 06 the patient woke around 2 AM with recurrence of the occipital headache. Blood pressure is still running 190s over 100, neurologic exam was normal as was chest imaging and CT of the head. A EKG was overall unremarkable, lab evaluation revealed elevated lipase but were overall reassuring. Blood pressure normalized with labetalol IV and the patient was admitted on a Cardizem drip. Serial cardiac enzymes were negative she was evaluated by the cardiology team and echocardiogram revealed an ejection fraction of 50% with some mild valvular abnormalities and global hypokinesis. She was discharged home the following day and advised to discontinue her Aleve which she had resumed after being off that for several months. Since discharge the patient has been recording her heart rate 7 blood pressures regularly and tonight her heart rate was in the 80s and home blood pressure 171/ 85. She persists with a global throbbing headache /10 which she states was present yesterday upon hospital discharge. She denies any vision changes or ataxia and no focal neurologic deficit no chest pain or difficulty breathing no arm or neck discomfort no fatigue or lethargy nausea or vomiting. Timing/Duration: changing over time Severity: moderate Modifying Factors: improves with medication Associated Symptoms: headaches Allergies: Coded Allergies: fluorouracil (Verified Allergy, Intermediate, Rash, 06/12/16) venom-honey bee (Verified Allergy, Intermediate, SYNCOPE, 06/12/16) Past Medical History Medical History: other (syncope with failed tilt table test treated with compression hose last episode June, chronic low back pain, coronary artery disease, hypertension, paroxysmal atrial fibrillation, hyperparathyroidism, hypothyroidism, remote breast cancer history in 1993 currently in remission, carotid artery disease, chronic pancreatic cyst) Surgical History: other (appendectomy, tonsillectomy, parathyroidectomy, vertebral plasty, mastectomy, [employer] monitor follows with a [facility]) Social History Smoker: non-smoker Alcohol: none Drugs: none Review of Systems Constitutional: denies chills, denies diaphoresis, denies fever, denies malaise , denies weakness EENTM: denies eye pain, denies blurred vision, denies ear pain, denies ear discharge, denies throat pain, denies throat swelling Respiratory: denies cough, denies orthopnea, denies shortness of breath, denies wheezing Cardiovascular: see HPI, denies chest pain, denies edema, denies palpitations, syncope (by history) Gastrointestinal: denies abdominal pain, denies diarrhea, denies nausea, denies vomiting Genitourinary: denies dysuria, denies frequency, denies hematuria Musculoskeletal: see HPI, back pain (chronic) Psychiatric/Neurological: headache, denies numbness, denies paresthesia, denies seizure, denies weakness Hematologic/Lymphatic: denies blood clots, denies easy bleeding, denies easy bruising Physical Exam General Appearance: WD/WN, no apparent distress Eyes: bilateral eye normal inspection, bilateral eye PERRL, bilateral eye EOMI Ear, Nose, Throat: hearing grossly normal, normal ENT inspection, normal pharynx Neck: non-tender, supple Respiratory: normal breath sounds, no respiratory distress Cardiovascular: normal peripheral pulses, regular rate, rhythm, no edema Gastrointestinal: non tender, soft Back: no CVA tenderness, no vertebral tenderness Extremities: non-tender, normal inspection, no pedal edema, no calf tenderness Neurologic/Psychiatric: 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 Interpreted by Dr. Bagley. 0421: Blood pressure currently 140/68 prior to receiving any treatment. Tylenol, NTP given in ED. Pertinent labs: K+ 5.3, BUN 23, Cr 1.2, BNP 565, TSH pending. 0512: Current blood pressure is 146/50, patient denies any headache or other symptoms. Inpatient observation admission offered and declined. She confirms that she has not taking any potassium supplementation. I discussed hydration, temporarily avoiding bananas/leafy green vegetables and other sources of dietary potassium, blood pressure monitoring, and close PCP follow-up with Dr. Rojas Friday. I discussed indications to return. Patient expressed agreement and understanding with the treatment plan. Departure Time of Disposition: 05:09 Disposition: 01 HOME, SELF-CARE Diagnosis: Uncontrolled HTN, mild renal insufficiency, headac Condition: IMPROVED Patient Instructions: Hypertension, [id number] Additional Instructions: Continue current medications. Aggressive hydration. OTC tylenol as needed. Follow up with Dr Rojas Friday for recheck of BP, symptoms, and thyroid stimulating hormone result. Return to ED with new or changing symptoms. KAREN BAGLEY DO Mar 08, 2017 04:21
[2017-03-08 04:37] LABS: BASO % 0 % (0-3); EOS # 0.1 x10^3/uL (0.0-0.7); EOS % 2 % (0-3); HEMATOCRIT 41.3 % (36.0-47.0); HEMOGLOBIN 13.5 g/dL (12.0-15.5); LYMPH # 1.2 x10^3/uL (1.0-4.8); LYMPH % 25 % (24-48); MEAN CORPUSCULAR HEMOGLOBIN 29 pg (25-35); MEAN CORPUSCULAR HGB CONC 33 g/dL (31-37); MEAN CORPUSCULAR VOLUME 89 fL (79-100); MONO # 0.6 x10^3/uL (0.0-1.1); MONO % 12 % (0-9); NEUT # 2.9 x10^3uL (1.8-7.7); NEUT % 60 % (31-73); PLATELET COUNT 185 x10^3/uL (140-400); RED BLOOD COUNT 4.67 x10^6/uL (3.50-5.40); RED CELL DISTRIBUTION WIDTH 13.8 % (11.5-14.5); WHITE BLOOD COUNT 4.8 x10^3/uL (4.0-11.0)
[2017-03-08 04:51] LABS: ALBUMIN 3.7 g/dL (3.4-5.0); ALBUMIN/GLOBULIN RATIO 1.2 (1.0-1.7); CALCIUM 9.3 mg/dL (8.5-10.1); CREATININE 1.2 mg/dL (0.6-1.0); POTASSIUM 5.3 mmol/L (3.5-5.1); TOTAL BILIRUBIN 0.5 mg/dL (0.2-1.0); TOTAL PROTEIN 6.8 g/dL (6.4-8.2)
[2017-03-08 04:56] VITALS: BP 146/50
--- NOTE | 2017-03-08 06:05 | EKG ---
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
--- NOTE | 2017-03-08 07:46 | RAD ---
Single view chest History:Hypertension tonight An AP view of the chest is submitted. Comparison: 03/06/2017. Findings: There is no significant infiltrate, pleural effusion, or pneumothorax. The pericardial cardiac silhouette is stable, borderline to slightly enlarged. There is atherosclerotic carotid calcification near aortic arch. There are left axillary clips. Electronic monitoring device is seen projecting over the inferior left hemithorax as seen previously. There is degenerative change of the acromioclavicular joints bilaterally. There are granulomas of the right hemithorax is seen previously. Impression: There is no evidence of acute cardiopulmonary disease.
== END 2017-03-08 05:22 | disposition home or self-care (01) ==
LOC: ER 02:45
DX: I10 Essential (primary) hypertension (principal); N28.9 Disorder of kidney and ureter, unspecified; R51 Headache; I25.10 Atherosclerotic heart disease of native coronary artery without angina pectoris; I48.0 Paroxysmal atrial fibrillation; G89.29 Other chronic pain; E21.3 Hyperparathyroidism, unspecified; E03.9 Hypothyroidism, unspecified; Z88.8 Allergy status to other drugs, medicaments and biological substances; Z91.030 Bee allergy status
CPT/HCPCS: 36415; 71010; 80053; 82550; 83735; 83880; 84443; 84484; 85025; 93005; 99285-25

== ENCOUNTER 2017-03-08 10:12 | Emergency (ER) | payer MEDICARE, OTHER ==
[~2017-03-08] VITALS: Ht 167.6 cm; Wt 67.0 kg
--- NOTE | 2017-03-08 11:25 | PHYS DOC ---
Past History Past Medical History: A-Fib, CAD, Hypertension, Hypothyroid Additional Past Medical Histor: syncope Past Surgical History: Appendectomy, Tonsillectomy Alcohol Use: None Drug Use: None Adult General Chief Complaint Chief Complaint: HYPERTENSION HPI HPI Patient is a 81-year-old female with a history of hypertension and A. fib who returns with the concern about her blood pressure and also a headache. Patient has had headaches for about 2 weeks intermittently. Her headache is mild currently. She has not started any new medications shortly before starting the headache. It is in the back of her head. It is not debilitating. She has been on lisinopril for hypertension. Her hypertension had been well-controlled until a few days ago when she checked her blood pressure and it was high. She ended up being admitted for hypertension, had a evaluation including a negative CT scan of her head. It was attributed to possibly taking Aleve for back pain. She has stopped using Aleve. She was seen here early this morning with her blood pressure elevated, was evaluated again with nothing significant found. They added nitro paste to her medication regimen. She returns this morning with her headache still there but her actual concern is her elevated blood pressure. It was running high at home when she checked it. She just wasn't sure what to do or what level of blood pressure she should be concerned or rechecked. She was told this morning that she was a bit dehydrated and she has been drinking fluids. She also took 2 Tylenol which has helped. She is not on a diuretic, that was discontinued some time ago. She was diagnosed in June with A. fib and was started on Eliquis and Multaq but no newer medications than that. 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 PCP is Dr. Rojas. She sees a wine cellar stock clerk at . She states her blood pressure usually runs 110/50 and her heart rate is usually in the 70s. Review of Systems Review of Systems Constitutional: Denies fever or chills [] Respiratory: Denies cough or shortness of breath [] Cardiovascular: Denies chest pain Musculoskeletal: She has some chronic back pain that has not worsened Neurologic: Mild occipital headache as in history of present illness Allergies Allergies Allergies Coded Allergies Type Severity Reaction Last Updated Verified fluorouracil Allergy Intermediate Rash 06/12/16 Yes venom-honey bee Allergy Intermediate SYNCOPE 06/12/16 Yes Physical Exam Physical Exam Constitutional: Well developed, well nourished, no acute distress, non-toxic appearance. Alert, mentating normally, warm and dry. Blood pressure 132/61, after resting. HENT: Normocephalic, atraumatic, bilateral external ears normal, nose normal. [ ] Eyes: conjunctiva normal, no discharge. [] Neck: Normal range of motion, no stridor. [] Cardiovascular:Heart irregularly irregular with rate in the 70s, no murmur Lungs & Thorax: Bilateral breath sounds clear to auscultation rales Skin: Warm, dry, no erythema, no rash. [] Extremities: No tenderness, no cyanosis, no clubbing, ROM intact, no edema. [] Neurologic: Alert and oriented X 3, normal motor function, normal sensory function, no focal deficits noted. [] Current Patient Data Vital Signs Vital Signs Date Time Temp Pulse Resp B/P (MAP) Pulse Ox O2 Delivery O2 Flow Rate FiO2 03/08/17 10:55 71 12 118/55 (76) 94 03/08/17 10:23 97.7 Room Air EKG EKG [] Radiology/Procedures Radiology/Procedures [] Course & Med Decision Making Course & Med Decision Making Pertinent Labs and Imaging studies reviewed. (See chart for details) 81-year-old female presents with continued blood pressure running high and a mild headache. I spent a long time talking to her. I'm not able to identify a cause for the headache. It does not seem like any severe or emergent type of headache, she did recently have a CT scan for this same headache. It's not keeping her from doing anything. She is more concerned about whether the headache is causing her blood pressure to be high or vice versa. We discussed the difficulties with this. At this time I don't recommend any treatment of her blood pressure. She did have nitro paste applied this morning and I think if anything that could be making matters worse. Her Nitropaste was removed and her skin was washed in that area. She does have a primary care physician that she can see on Friday if necessary, see instructions for plan. [] Dragon Disclaimer Dragon Disclaimer This chart was dictated in whole or in part using Voice Recognition software in a busy, high-work load, and often noisy Emergency Department environment. It may contain unintended and wholly unrecognized errors or omissions. Departure Departure: Impression: Primary Impression: Hypertension Additional Impression: Headache Disposition: HOME, SELF-CARE Condition: STABLE Referrals: MANJU ROJAS MD (PCP) Additional Instructions: As we discussed, at this time I do not recommend any further treatment for your blood pressure or your headache. Continue to take lisinopril as directed, you may try splitting up the dose and taking 5 mg every 12 hours if you wish. Tylenol for headache as needed. Stay well-hydrated. Follow-up with your primary care physician and wine cellar stock clerk. Problem Qualifiers CB AVENDAÑO MD Mar 08, 2017 11:25
[2017-03-08 11:30] VITALS: BP 132/61
== END 2017-03-08 11:35 | disposition home or self-care (01) ==
LOC: ER 10:12
DX: I10 Essential (primary) hypertension (principal); R51 Headache; G89.29 Other chronic pain; I25.10 Atherosclerotic heart disease of native coronary artery without angina pectoris; E03.9 Hypothyroidism, unspecified; I48.91 Unspecified atrial fibrillation; Z88.8 Allergy status to other drugs, medicaments and biological substances; Z91.030 Bee allergy status
CPT/HCPCS: 99283

== ENCOUNTER → 2017-04-04 | Outpatient (CLI) | payer MEDICARE, OTHER ==
[2017-03-08 11:30] VITALS: BP 132/61
[~2017-04-04] MED LIST changes: -NAPR250T2 PO; +NAPR250T6 PO
--- NOTE | 2017-04-04 14:30 | RAD ---
DATE: 04/04/2017 EXAM: MAMMO SUKHJINDER SCREEN RT HISTORY: Right breast screening, previous left breast cancer COMPARISON: 04/02/2016 This study was interpreted with the benefit of Computerized Aided Detection (CAD). The breast parenchyma is dense, which could reduce the sensitivity of mammography. Breast parenchyma level density D. FINDINGS: 2-D and 3-D tomosynthesis imaging was performed in CC and MLO projections. No new or enlarging breast densities are seen. Multiple benign type calcifications are unchanged. No suspicious microcalcifications have developed. IMPRESSION: Stable right mammograms without evidence of malignancy. BI-RADS CATEGORY: 2 BENIGN FINDING(S) RECOMMENDED FOLLOW-UP: 12M 12 MONTH FOLLOW-UP PQRS compliance statement: Patient information was entered into a reminder system with a target due date for the next mammogram. Mammography is a sensitive method for finding small breast cancers, but it does not detect them all and is not a substitute for careful clinical examination. A negative mammogram does not negate a clinically suspicious finding and should not result in delay in biopsying a clinically suspicious abnormality. "Our facility is accredited by the [employer] Mammography Program."
== END | disposition home or self-care (01) ==
LOC: MAMMO 10:50
PROVIDERS: ATTEND Obstetrics & Gynecology
DX: Z12.31 Encounter for screening mammogram for malignant neoplasm of breast (principal); Z85.3 Personal history of malignant neoplasm of breast
CPT/HCPCS: 77063; G0202; 77067

== ENCOUNTER → 2017-04-08 | Outpatient (CLI) | payer MEDICARE, OTHER ==
--- NOTE | 2017-04-08 15:03 | RAD ---
EXAM: Dual energy x-ray absorptiometry (DEXA). HISTORY: Postmenopausal female presents for osteoporosis screening. COMPARISON: 02/28/2015. TECHNIQUE: Dual energy x-ray absorptiometry of the lumbar spine and the right hip was performed. FINDINGS: The labeled first vertebral body appears to represent the T12 vertebral body on a prior CT. The average bone mineral density in the labeled second lumbar vertebral body, actually correspond with the L1 vertebral body is 1.477 is 1.143 g/cmxcm, corresponding with a T-score of 2.3. This is likely artifactually elevated due to vertebral body sclerosis or methylmethacrylate. The average total bone mineral density in the right femoral neck is 0.761 g/cmxcm, corresponding with a T-score of -2.3. There has been a 2.8% decrease in bone mineral density of the right hip compared to the prior study. IMPRESSION: Osteopenia measured at the right femoral neck.
== END | disposition home or self-care (01) ==
LOC: DXRAD 09:33
PROVIDERS: ATTEND Obstetrics & Gynecology
DX: M85.88 Other specified disorders of bone density and structure, other site (principal); Z78.0 Asymptomatic menopausal state
CPT/HCPCS: 77080

== ENCOUNTER 2017-05-30 03:20 | Emergency (ER) | payer MEDICARE, OTHER ==
[~2017-05-30] VITALS: Ht 167.6 cm; Wt 64.9 kg
--- NOTE | 2017-05-30 04:30 | RAD ---
RS Compliance Statement: One or more of the following individualized dose reduction techniques were utilized for this examination: 1. Automated exposure control 2. Adjustment of the mA and/or kV according to patient size 3. Use of iterative reconstruction technique CT head without contrast 05/30/2017 4:12 AM INDICATION: Headache COMPARISON: CT head 03/06/2017 TECHNIQUE: Multiple axial CT images of the head were obtained from skull base through the vertex without intravenous contrast. FINDINGS: Head: Ventricles, sulci and basal cisterns are mildly prominent compatible with mild parenchymal volume loss, stable. There is no hydrocephalus. Adams-white matter differentiation is normal. There is no acute intracranial hemorrhage. There is no mass, mass effect or midline shift. Posterior fossa is normal in appearance. Intracranial atherosclerotic vascular calcification is present. Visualized portions of the orbits are normal with exception of bilateral lens replacement. There is mucosal thickening of the left maxillary sinus. Mastoid air cells are well aerated. Scalp and calvaria are normal. IMPRESSION: No acute intracranial hemorrhage. Electronically signed by: Michelle Hays MD (05/30/2017 4:26 AM) [place] [id number]
--- NOTE | 2017-05-30 04:33 | EKG ---
[address] [address] Test Date: 2017-05-30 Test Time: 03:54:25 Pat Name: CARROLL APODACA Department: Room: Gender: F Bit Sander: RIVKA : 1935 Requested By: LEVI BONILLA Order Number: [id number] Reading MD: Naveen Dodd MD Measurements Intervals [place] Rate: 74 P: 90 MT: 232 QRS: 76 QRSD: 82 T: 40 QT: 388 QTc: 431 Interpretive Statements SINUS RHYTHM PROLONGED MT INTERVAL Electronically Signed On 06-02-2017 14:12:03 BAT LATHE OPERATOR by Naveen Dodd MD
[2017-05-30 05:20] LABS: BASO % 1 % (0-3); EOS # 0.1 x10^3/uL (0.0-0.7); EOS % 1 % (0-3); HEMATOCRIT 42.3 % (36.0-47.0); LYMPH # 1.1 x10^3/uL (1.0-4.8); LYMPH % 21 % (24-48); MEAN CORPUSCULAR HEMOGLOBIN 29 pg (25-35); MEAN CORPUSCULAR HGB CONC 33 g/dL (31-37); MEAN CORPUSCULAR VOLUME 87 fL (79-100); MONO # 0.6 x10^3/uL (0.0-1.1); MONO % 11 % (0-9); NEUT # 3.5 x10^3uL (1.8-7.7); NEUT % 66 % (31-73); PLATELET COUNT 215 x10^3/uL (140-400); RED BLOOD COUNT 4.84 x10^6/uL (3.50-5.40); RED CELL DISTRIBUTION WIDTH 14.1 % (11.5-14.5); WHITE BLOOD COUNT 5.3 x10^3/uL (4.0-11.0)
[2017-05-30 05:39] LABS: ALBUMIN 3.5 g/dL (3.4-5.0); CALCIUM 9.4 mg/dL (8.5-10.1); CREATININE 1.1 mg/dL (0.6-1.0); GFR 47.4; MAGNESIUM 2.1 mg/dL (1.8-2.4); POTASSIUM 4.4 mmol/L (3.5-5.1); TOTAL BILIRUBIN 0.3 mg/dL (0.2-1.0)
[2017-05-30 05:44] LABS: BACTERIA,URINE 0 /HPF (0-FEW); BILIRUBIN,URINE NEG (NEG); CLARITY,URINE CLEAR; COLOR,URINE YELLOW; GLUCOSE,URINE NEG (NEG); NITRITE,URINE NEG (NEG); RBC,URINE 0 /HPF (0-2); SQUAMOUS EPITHELIAL CELL,UR OCC /LPF; UROBILINOGEN,URINE 0.2 mg/dL (0.2 mg/dL); WBC,URINE OCC /HPF (0-4)
[2017-05-30 05:45] VITALS: BP 164/75
[2017-05-30] MEDS ORDERED: oxyCODONE IR 5 MG TABLET PO ONE (06:00)
[2017-05-30] MEDS ORDERED: FLUT16SP21 NS (06:01)
--- NOTE | 2017-05-30 06:02 | PHYS DOC ---
Past History Past Medical History: A-Fib, CAD, Hypertension, Hypothyroid Additional Past Medical Histor: syncope Past Surgical History: Appendectomy, Tonsillectomy Alcohol Use: None Drug Use: None Adult General Chief Complaint Chief Complaint: MULTIPLE COMPLAINTS HPI HPI Patient is a 82 year old female who presents with "not feeling well." She states she woke from sleep around 0200 this morning & had a headache & felt nauseated. She didn't feel right, & this feeling persisted even after walking around her house. She states she has had chronic headache constantly x 2 months , not sudden in onset & not the worst headache of her life, bitemporal. She is supposed to have an MRI this week for further evaluation. She denies fevers/ chills, vision changes, chest pain, shortness of breath, vomiting, diarrhea, abdominal pain, dysuria, extremity numbness/weakness or swelling. She has history of afib, HTN. PCP is Dr. Prescott. Review of Systems Review of Systems Constitutional: Denies fever or chills Eyes: Denies change in visual acuity HENT: Denies nasal congestion or sore throat Respiratory: Denies cough or shortness of breath Cardiovascular: Denies chest pain or edema GI: Reports nausea. Denies abdominal pain, vomiting, bloody stools or diarrhea : Denies dysuria or hematuria Musculoskeletal: Denies back pain or joint pain Integument: Denies rash Neurologic: Reports headache, denies focal weakness or sensory changes All other systems were reviewed and found to be within normal limits, except as documented in this note. Allergies Allergies Allergies Coded Allergies Type Severity Reaction Last Updated Verified fluorouracil Allergy Intermediate Rash 06/12/16 Yes venom-honey bee Allergy Intermediate SYNCOPE 06/12/16 Yes Physical Exam Physical Exam Constitutional: Well developed, well nourished, no acute distress, non-toxic appearance. HENT: Normocephalic, atraumatic, bilateral external ears normal, oropharynx moist, no oral exudates, nose normal. Eyes: PERRLA, EOMI, conjunctiva normal, no discharge. Neck:supple, no stridor. no meningismus Cardiovascular: RRR, no murmurs, no edema. Lungs & Thorax: LCATB, no wheezing, no respiratory distress. Abdomen: soft, nontender, nondistended Skin: Warm, dry, no erythema, no rash. Back: No tenderness, no CVA tenderness. Extremities: No tenderness, no edema. Neurologic: Alert and oriented X 3, CN2-12 grossly intact, symmetric strength/ sensation to upper & lower extremities Psychologic: anxious Current Patient Data Lab Results Laboratory Tests Test 05/30/17 05:05 White Blood Count 5.3 x10^3/uL (4.0-11.0) Red Blood Count 4.84 x10^6/uL (3.50-5.40) Hemoglobin 14.0 g/dL (12.0-15.5) Hematocrit 42.3 % (36.0-47.0) Mean Corpuscular Volume 87 fL (79-100) Mean Corpuscular Hemoglobin 29 pg (25-35) Mean Corpuscular Hemoglobin Concent 33 g/dL (31-37) Red Cell Distribution Width 14.1 % (11.5-14.5) Platelet Count 215 x10^3/uL (140-400) Neutrophils (%) (Auto) 66 % (31-73) Lymphocytes (%) (Auto) 21 % (24-48) L Monocytes (%) (Auto) 11 % (0-9) H Eosinophils (%) (Auto) 1 % (0-3) Basophils (%) (Auto) 1 % (0-3) Neutrophils # (Auto) 3.5 x10^3uL (1.8-7.7) Lymphocytes # (Auto) 1.1 x10^3/uL (1.0-4.8) Monocytes # (Auto) 0.6 x10^3/uL (0.0-1.1) Eosinophils # (Auto) 0.1 x10^3/uL (0.0-0.7) Basophils # (Auto) 0.0 x10^3/uL (0.0-0.2) EKG EKG interpreted by me: 0354: NSR rate 74, no acute ST/T wave changes, WV prolonged 232 ms, no ectopy.[] Radiology/Procedures Radiology/Procedures PROCEDURE: CT HEAD WO CONTRAST PQRS Compliance Statement: One or more of the following individualized dose reduction techniques were utilized for this examination: 1. Automated exposure control 2. Adjustment of the mA and/or kV according to patient size 3. Use of iterative reconstruction technique CT head without contrast 05/30/2017 4:12 AM INDICATION: Headache COMPARISON: CT head 03/06/2017 TECHNIQUE: Multiple axial CT images of the head were obtained from skull base through the vertex without intravenous contrast. FINDINGS: Head: Ventricles, sulci and basal cisterns are mildly prominent compatible with mild parenchymal volume loss, stable. There is no hydrocephalus. Adams-white matter differentiation is normal. There is no acute intracranial hemorrhage. There is no mass, mass effect or midline shift. Posterior fossa is normal in appearance. Intracranial atherosclerotic vascular calcification is present. Visualized portions of the orbits are normal with exception of bilateral lens replacement. There is mucosal thickening of the left maxillary sinus. Mastoid air cells are well aerated. Scalp and calvaria are normal. IMPRESSION: No acute intracranial hemorrhage. Electronically signed by: Samuel Hawkins MD (05/30/2017 4:26 AM) [facility] DICTATED AND SIGNED BY: SAMUEL HAWKINS MD DATE: 05/30/17 0424 [] Course & Med Decision Making Course & Med Decision Making Pertinent Labs and Imaging studies reviewed. (See chart for details) The patient presents with complaint of not feeling well. Symptoms are vague here other than chronic headache for 2 months. Vitals stable, no focal findings on exam. Obtained labs, EKG, head CT. No focal findings. She felt better after treatment. She has an MRI scheduled for this week because of chronic headaches & I did encourage her to keep this appointment. She called a friend for a ride & was able to ambulate with steady gait. Recommend rest, hydration, follow up with PCP in the morning for additional concerns. Return to the ED for high fever, severe chest pain or shortness of breath, severe abdominal pain, uncontrolled vomiting, focal neuro deficit, any otherwise worsening condition. Discharged home in stable condition. [] Dragon Disclaimer Dragon Disclaimer This electronic medical record was generated, in whole or in part, using a voice recognition dictation system. Departure Departure: Impression: Primary Impression: Headache Disposition: HOME, SELF-CARE Condition: STABLE Referrals: MANJU PRESCOTT MD (PCP) Patient Instructions: General Headache Without Cause, [id number] Additional Instructions: You were seen in the emergency department today. Your tests did not show a serious cause of your symptoms. Please rest, drink fluids to stay hydrated, take tylenol as needed for headache. You can also try flonase nasal spray. Follow up with Dr. Prescott in 2-3 days if not improving. Come back for sudden onset severe headache, severe chest pain or shortness of breath, uncontrolled vomiting, numbness or weakness in arms or legs, any otherwise worsening condition. Scripts Fluticasone Propionate (FLUTICASONE PROPIONATE NASAL SPRAY) 16 Gm Joaquin.susp 2 SPR NS DAILY Y for sinus headache/congestion, #1 INHALER 0 Refills Prov: LEVI BONILLA MD 05/30/17 LEVI BONILLA MD May 30, 2017 06:02
== END 2017-05-30 06:18 | disposition home or self-care (01) ==
LOC: ER 03:46
DX: R51 Headache (principal); E03.9 Hypothyroidism, unspecified; I10 Essential (primary) hypertension; I25.10 Atherosclerotic heart disease of native coronary artery without angina pectoris; I48.91 Unspecified atrial fibrillation; Z88.8 Allergy status to other drugs, medicaments and biological substances; Z91.030 Bee allergy status
CPT/HCPCS: 36415; 70450; 80053; 81001; 83735; 83880; 84484; 85025; 93005; 99285-25

== ENCOUNTER 2017-06-01 06:55 | Emergency (ER) | payer MEDICARE, OTHER ==
[~2017-06-01] VITALS: Ht 167.6 cm; Wt 67.0 kg
[~2017-06-01 06:55] MED LIST changes: +FLUT16SP21 NS
[2017-06-01] MEDS ORDERED: oxyCODONE IR 5 MG TABLET PO PRN (07:30)
[2017-06-01 08:46] LABS: BASO # 0.1 x10^3/uL (0.0-0.2); BASO % 1 % (0-3); EOS # 0.1 x10^3/uL (0.0-0.7); EOS % 1 % (0-3); HEMATOCRIT 41.6 % (36.0-47.0); HEMOGLOBIN 14.1 g/dL (12.0-15.5); LYMPH # 1.3 x10^3/uL (1.0-4.8); LYMPH % 19 % (24-48); MEAN CORPUSCULAR HEMOGLOBIN 30 pg (25-35); MEAN CORPUSCULAR HGB CONC 34 g/dL (31-37); MEAN CORPUSCULAR VOLUME 87 fL (79-100); MONO # 0.6 x10^3/uL (0.0-1.1); MONO % 9 % (0-9); NEUT # 4.7 x10^3uL (1.8-7.7); NEUT % 69 % (31-73); PLATELET COUNT 228 x10^3/uL (140-400); RED BLOOD COUNT 4.76 x10^6/uL (3.50-5.40); RED CELL DISTRIBUTION WIDTH 14.3 % (11.5-14.5); WHITE BLOOD COUNT 6.8 x10^3/uL (4.0-11.0)
--- NOTE | 2017-06-01 08:50 | RAD ---
PQRS Compliance Statement: One or more of the following individualized dose reduction techniques were utilized for this examination: 1. Automated exposure control 2. Adjustment of the mA and/or kV according to patient size 3. Use of iterative reconstruction technique CT HEAD AND CERVICAL SPINE WITHOUT CONTRAST History: osteopenia/back pain h/o compression fx. Headache and dizziness. Duration 3 weeks. Comparison: CT head without contrast, [address] cervical spine without contrast 06/30/2016 Procedure: Axial images are obtained of the head from the skull base through the vertex without IV contrast. Noncontrast helical CT of the cervical spine was performed. Axial, sagittal, and coronal reconstructions were obtained. Head Findings: The ventricles and sulci are prominent, consistent with age-related cerebral atrophy. There is scattered periventricular white matter hypoattenuation. This is a nonspecific finding but is commonly due to chronic small vessel ischemic disease in a patient of this age. No mass-effect, midline shift, hemorrhage or obvious acute infarction is identified. Basilar cisterns are patent. Bone windows demonstrate no significant calvarial abnormality. Moderate mucosal thickening of the visualized left maxillary sinus. There is tiny right Sinus mucous retention cyst or polyp. No air-fluid level is seen. Mastoid air cells are well aerated. Cervical Spine Findings: There is no evidence of acute fracture or acute malalignment. The alignment is stable. There is grade 1 anterolisthesis of C2 on C3 and C3 on C4 and C4 on C5. There is severe disc space narrowing and reactive endplate changes at C4/C5, C5/C6, and C6/C7. The facet joints are intact, moderately hypertrophic. Bilateral carotid bulb calcifications.. The visualized lung apices are clear, minimally imaged. IMPRESSION: 1. No acute intracranial abnormality. 2. No acute fracture of the cervical spine.
[2017-06-01 08:58] LABS: CALCIUM 9.5 mg/dL (8.5-10.1); CREATININE 1.2 mg/dL (0.6-1.0); GFR 42.9; MAGNESIUM 2.2 mg/dL (1.8-2.4); POTASSIUM 4.3 mmol/L (3.5-5.1)
--- NOTE | 2017-06-01 08:59 | PHYS DOC ---
General Chief Complaint: HEADACHE Stated Complaint: HEADACHE,BACKACHE,NOT WELL Time Seen by MD: 07:04 Source: patient, old records Exam Limitations: no limitations Problems: History of Present Illness Initial Comments Patient is an 82-year-old female who comes to the ED again with headache and backache this time. Patient has been undergoing outpatient workup for her chronic headaches her PCP is Dr. Prescott. She has an MRI scheduled for this Friday. It appears she was under the impression that she came to the emergency department could do an MRI for her from here as she's getting frustrated and impatient about her symptoms and workup. Patient was seen here on May 30 for similar symptoms except on that day she wasn't complaining of the thoracic spine pain. Her lab workup was unremarkable CT of the head was unremarkable as well and she was discharged home to follow-up for her MRI. Patient states that her headache has remained unchanged. She says this morning she had some blurred vision also new today she's having some point tenderness at the lower thoracic spine. She denies any trauma but does have history of osteoporosis and compression fractures with history of kyphoplasty as well at T12. No other neurologic symptoms no recent head trauma no lateralizing neurologic complaints. No fever chills sweats or myalgias no nausea or vomiting no neck stiffness or rash. She denies any recent insect or tick bites and denies any travel as well. Patient is prescribed oxycodone IR 5 mg by her PCP however she states that she has only taken half a tablet once with some relief. She does not want to take any medications and doesn't want to have these pain complaints as well. She is mildly hypertensive otherwise her vital signs are stable and although frustrated she does not appear to be in any distress. Timing/Duration: constant Severity: moderate Modifying Factors: improves with medication Associated Symptoms: headaches, other Allergies: Coded Allergies: fluorouracil (Verified Allergy, Intermediate, Rash, 06/12/16) venom-honey bee (Verified Allergy, Intermediate, SYNCOPE, 06/12/16) Past Medical History Medical History: other (atrial fibrillation, anxiety, arthritis, osteoporosis, compression fractures, coronary artery disease, hyperlipidemia, hypertension, hypothyroidism) Surgical History: other (vertebral kyphoplasty, cancer surgery, appendectomy, tonsillectomy) Social History Smoker: non-smoker Alcohol: none Drugs: none Review of Systems Constitutional: denies chills, denies diaphoresis, denies fever, denies malaise EENTM: denies eye pain, blurred vision, denies double vision, denies ear pain, denies ear discharge, denies nose pain, denies nose congestion, denies throat pain, denies throat swelling, denies mouth swelling Respiratory: denies cough, denies shortness of breath, denies wheezing Cardiovascular: denies chest pain, denies palpitations, denies syncope Gastrointestinal: denies abdominal pain, denies diarrhea, denies nausea, denies vomiting Musculoskeletal: see HPI, denies neck pain Psychiatric/Neurological: see HPI, denies numbness, denies paresthesia, denies pre-existing deficit, denies weakness Hematologic/Lymphatic: see HPI Physical Exam General Appearance: WD/WN, no apparent distress Eyes: bilateral eye normal inspection, bilateral eye PERRL, bilateral eye EOMI Ear, Nose, Throat: hearing grossly normal, normal ENT inspection, normal pharynx Neck: non-tender, full range of motion, supple Respiratory: normal breath sounds, no respiratory distress Cardiovascular: normal peripheral pulses, regular rate, rhythm Gastrointestinal: non tender, soft Back: no CVA tenderness, other (increased thoracic kyphosis no midline or bony swelling or ecchymosis is apparent, no palpable bony deformity or bony point tenderness) Extremities: non-tender, normal inspection, no pedal edema Neurologic/Psychiatric: wire spinner II-XII nml as tested, no motor/sensory deficits, alert, normal mood/affect, oriented x 3 Skin: normal color, warm/dry Orders, Labs, Meds PATIENT: CARROLL APODACA ACCOUNT: [id number] : 1935 LOCATION: ER AGE: 82 SEX: F EXAM STATUS: REG ER ORD. PHYSICIAN: KAREN PEACOCK DO REASON: osteopenia/back pain h/o compression fx PROCEDURE: CT HEAD AND CERVICAL SPINE WO RS Compliance Statement: One or more of the following individualized dose reduction techniques were utilized for this examination: 1. Automated exposure control 2. Adjustment of the mA and/or kV according to patient size 3. Use of iterative reconstruction technique CT HEAD AND CERVICAL SPINE WITHOUT CONTRAST History: osteopenia/back pain h/o compression fx. Headache and dizziness. Duration 3 weeks. Comparison: CT head without contrast, [address] cervical spine without contrast 06/30/2016 Procedure: Axial images are obtained of the head from the skull base through the vertex without IV contrast. Noncontrast helical CT of the cervical spine was performed. Axial, sagittal, and coronal reconstructions were obtained. Head Findings: The ventricles and sulci are prominent, consistent with age-related cerebral atrophy. There is scattered periventricular white matter hypoattenuation. This is a nonspecific finding but is commonly due to chronic small vessel ischemic disease in a patient of this age. No mass-effect, midline shift, hemorrhage or obvious acute infarction is identified. Basilar cisterns are patent. Bone windows demonstrate no significant calvarial abnormality. Moderate mucosal thickening of the visualized left maxillary sinus. There is tiny right Sinus mucous retention cyst or polyp. No air-fluid level is seen. Mastoid air cells are well aerated. Cervical Spine Findings: There is no evidence of acute fracture or acute malalignment. The alignment is stable. There is grade 1 anterolisthesis of C2 on C3 and C3 on C4 and C4 on C5. There is severe disc space narrowing and reactive endplate changes at C4/C5, C5/C6, and C6/C7. The facet joints are intact, moderately hypertrophic. Bilateral carotid bulb calcifications.. The visualized lung apices are clear, minimally imaged. IMPRESSION: 1. No acute intracranial abnormality. 2. No acute fracture of the cervical spine. DICTATED AND SIGNED BY: LUIS VOGEL MD DATE: 06/01/17 0837 CC: KAREN PEACOCK DO; MANJU PRESCOTT MD ~ PATIENT: CARROLL APODACA ACCOUNT: [id number] : 1935 LOCATION: ER AGE: 82 SEX: F EXAM STATUS: REG ER ORD. PHYSICIAN: KAREN PEACOCK DO REASON: osteopenia/back pain h/o compression fx PROCEDURE: CT THORACIC SPINE WO CONTRAST PQRS Compliance Statement: One or more of the following individualized dose reduction techniques were utilized for this examination: 1. Automated exposure control 2. Adjustment of the mA and/or kV according to patient size 3. Use of iterative reconstruction technique CT THORACIC SPINE WO CONTRAST Clinical Indication: osteopenia/back pain h/o compression fx Comparison: CT abdomen and pelvis 03/07/2017. Technique: Helical CT imaging of the thoracic spine is performed without IV contrast. Findings: There is old compression fracture treated with vertebroplasty of the T12 vertebral body. There is retropulsion that probably results in mild central canal stenosis. There is old compression fracture of the T8 vertebral body. Mild retropulsion superiorly without significant central canal stenosis. The T8 vertebral body is mostly sclerotic. The degree of height loss is increased compared to two-view chest 06/30/2016. Mild compression deformity centrally of the superior endplate of T6. No acute compression fracture is identified. There is degenerative spondylosis of the thoracic spine. There is bony excrescence or cement posterior to the T7 vertebral body and the T6/T7 disc space that indents the ventral thecal sac but does not produce significant central canal stenosis. There is bony excrescence midline and right of midline posterior to the T10 vertebral body that produces [id number] central canal stenosis. There is scarring in the bilateral lung bases. Coronary artery disease. Small hiatal hernia. IMPRESSION: 1. No acute compression fracture is identified. 2. There is old compression fracture of the T8 vertebral body that has progressed compared to last June. The T8 vertebral body is sclerotic. The sclerosis may be reactive although pathologic fracture cannot be excluded. 3. Old compression fracture treated with vertebroplasty of the T12 vertebral body. 4. Bony excrescence posterior to the T10 vertebral body produces mild to moderate central canal stenosis. DICTATED AND SIGNED BY: LUIS VOGEL MD DATE: 06/01/17 0848 CC: KAREN PEACOCK DO; MANJU PRESCOTT MD ~ BUNs 25, creatinine 1.2 I gave the patient her prescribed home medications oxycodone IR 5 mg from which she did get relief of her symptoms in the emergency department. Patient's vision is normal, she thinks may be her vision was blurred this morning because she had just woken up. She's had no eye symptoms since that time. Her gait is steady she is tolerating the medication well without any GI effects. No apparent emergent condition at today's visit and her symptoms are controlled with her home medications. I discussed medication compliance, oral hydration, and care taking opiates using assistive device and requesting help standing and walking to bring falls. I discussed signs and symptoms to monitor as well as urgent indications for return to the department. Her questions were answered to her satisfaction and she expressed agreement and understanding with the treatment plan and follow-up. Departure Time of Disposition: 10:30 Disposition: 01 HOME, SELF-CARE Diagnosis: Chronic Headache, Dehydration Condition: GOOD Patient Instructions: Dehydration, Elderly, [id number], General Headache Without Cause Additional Instructions: Please review the patient education materials given by ED staff. Increase fluid intake. Continue current medications, take pain meds as prescribed for symptom control. Stay with friend or use assistive device (walker, cane) to get around while taking pain medications. Follow up for your MRI Friday as scheduled. Follow up with Dr Prescott this week. Return to ED with new or changing symptoms. KAREN PEACOCK DO Jun 01, 2017 08:59
--- NOTE | 2017-06-01 09:04 | RAD ---
PQRS Compliance Statement: One or more of the following individualized dose reduction techniques were utilized for this examination: 1. Automated exposure control 2. Adjustment of the mA and/or kV according to patient size 3. Use of iterative reconstruction technique CT THORACIC SPINE WO CONTRAST Clinical Indication: osteopenia/back pain h/o compression fx Comparison: CT abdomen and pelvis 03/07/2017. Technique: Helical CT imaging of the thoracic spine is performed without IV contrast. Findings: There is old compression fracture treated with vertebroplasty of the T12 vertebral body. There is retropulsion that probably results in mild central canal stenosis. There is old compression fracture of the T8 vertebral body. Mild retropulsion superiorly without significant central canal stenosis. The T8 vertebral body is mostly sclerotic. The degree of height loss is increased compared to two-view chest 06/30/2016. Mild compression deformity centrally of the superior endplate of T6. No acute compression fracture is identified. There is degenerative spondylosis of the thoracic spine. There is bony excrescence or cement posterior to the T7 vertebral body and the T6/T7 disc space that indents the ventral thecal sac but does not produce significant central canal stenosis. There is bony excrescence midline and right of midline posterior to the T10 vertebral body that produces [id number] central canal stenosis. There is scarring in the bilateral lung bases. Coronary artery disease. Small hiatal hernia. IMPRESSION: 1. No acute compression fracture is identified. 2. There is old compression fracture of the T8 vertebral body that has progressed compared to last June. The T8 vertebral body is sclerotic. The sclerosis may be reactive although pathologic fracture cannot be excluded. 3. Old compression fracture treated with vertebroplasty of the T12 vertebral body. 4. Bony excrescence posterior to the T10 vertebral body produces mild to moderate central canal stenosis.
[2017-06-01] MEDS ORDERED: oxyCODONE IR 5 MG TABLET PO ONE (09:45)
[2017-06-01 09:55] VITALS: BP 163/73
[2017-06-01 10:19] LABS: BACTERIA,URINE 0 /HPF (0-FEW); BILIRUBIN,URINE NEG (NEG); CLARITY,URINE CLEAR; COLOR,URINE YELLOW; GLUCOSE,URINE NEG (NEG); NITRITE,URINE NEG (NEG); RBC,URINE 0 /HPF (0-2); SQUAMOUS EPITHELIAL CELL,UR OCC /LPF; UROBILINOGEN,URINE 0.2 mg/dL (0.2 mg/dL); WBC,URINE 0 /HPF (0-4)
--- NOTE | 2017-06-01 15:57 | EKG ---
[address] [address] Test Date: 2017-06-01 Test Time: 07:47:04 Pat Name: CARROLL APODACA Department: Room: Gender: F Market Manager: RIVKA : 1935 Requested By: KAREN PEACOCK Order Number: [id number] Reading MD: Naveen Dodd MD Measurements Intervals [place] Rate: 68 P: 61 VA: 234 QRS: 48 QRSD: 92 T: 43 QT: 418 QTc: 449 Interpretive Statements SINUS RHYTHM PROLONGED VA INTERVAL Electronically Signed On 06-03-2017 12:27:14 COMPLIANCE REVIEWER by Naveen Dodd MD
== END 2017-06-01 10:43 | disposition home or self-care (01) ==
LOC: ER 06:55
DX: E86.0 Dehydration (principal); R51 Headache; G89.29 Other chronic pain; M54.6 Pain in thoracic spine; E03.9 Hypothyroidism, unspecified; E78.5 Hyperlipidemia, unspecified; I10 Essential (primary) hypertension; I25.10 Atherosclerotic heart disease of native coronary artery without angina pectoris; I48.91 Unspecified atrial fibrillation; F41.9 Anxiety disorder, unspecified; M19.90 Unspecified osteoarthritis, unspecified site; Z88.8 Allergy status to other drugs, medicaments and biological substances; Z91.030 Bee allergy status
CPT/HCPCS: 36415; 70450; 72125; 72128; 80048; 81001; 82550; 83735; 83880; 84484; 85025; 85610; 85730; 93005; 99285-25

== ENCOUNTER → 2017-06-23 | Outpatient (CLI) | payer MEDICARE, OTHER ==
[2017-06-01 09:55] VITALS: BP 163/73
--- NOTE | 2017-06-23 11:02 | RAD ---
Indication: Chronic sinusitis. Technique: Axial images and coronal and sagittal reformatted images are provided. Comparison CT head is from June 01, 2017. One or more of the following individualized dose reduction techniques were utilized for this examination: 1. Automated exposure control 2. Adjustment of the mA and/or kV according to patient size 3. Use of iterative reconstruction technique Findings: Frontal sinuses are clear. Frontal recesses are patent. Ethmoid air cells are clear. Sphenoid sinuses are clear. Sphenoethmoidal recesses are patent. Very minimal lobular mucosal thickening or small retention cyst is noted in the right maxillary sinus. There is also moderate mucosal thickening in the left maxillary sinus. Mild wall sclerosis is noted in the left maxillary sinus. Right ostiomeatal unit is patent. Left ostiomeatal unit is occluded at the maxillary ostium. There is no air-fluid level. There is no maxillofacial fracture. There is slight nasal septal deviation to the right. Mastoid air cells are clear. Orbital contents are unremarkable. Impression: Left maxillary sinus disease, similar to prior.
== END | disposition home or self-care (01) ==
LOC: CT 10:08
PROVIDERS: ATTEND Internal Medicine
DX: J32.0 Chronic maxillary sinusitis (principal); J01.11 Acute recurrent frontal sinusitis; J34.1 Cyst and mucocele of nose and nasal sinus; J34.2 Deviated nasal septum
CPT/HCPCS: 70486

== ENCOUNTER 2017-08-21 15:58 | Emergency (ER) | payer MEDICARE, OTHER ==
[~2017-08-21 15:58] MED LIST changes: -IOHEXOL 300 MG/ML 75 ML VIAL. IV ONE
[2017-08-21] MEDS ORDERED: 0.9 % SODIUM CHLORIDE 10 ML DISP.SYRIN. IV PRN (16:15)
--- NOTE | 2017-08-21 16:28 | PHYS DOC ---
Past History Past Medical History: A-Fib, Anxiety, Arthritis, CAD, Cancer, High Cholesterol , Hypertension, Hypothyroid, Other Additional Past Medical Histor: syncope Past Surgical History: Appendectomy, Cancer Surgery, Tonsillectomy, Other Additional Past Surgical Histo: lumbar back fusion and Carina landy placement , kyphoplasty Smoking: Non-smoker Alcohol Use: None Drug Use: None Adult General Chief Complaint Chief Complaint: VISION PROBLEM HPI HPI Patient is a pleasant 82-year-old female who does live by herself who presents with a history of hypertension, prior breast cancer requiring left mastectomy who presents with sudden vision change today while looking at the computer. About 15 or 20 minutes prior to arrival patient was sitting at her computer when she noted the vision in both of her eyes change become so blurred that she cannot read which she was screened in front of her. She had no headache, no facial pain, no problems speaking, no problems with word finding, no memory issues, no neck pain, no other focal neurologic weakness or numbness in any part of her body. The symptoms lasted approximately 15-20 minutes and she was worried that being home alone she may have suffered from an issue that required hospitalization. Patient was taken by her friends to the hospital because she lives by herself. She denies any symptoms at this time she also admits that she was seen here earlier in our hospital for CT of the neck for continued evaluation of her carotid disease. sHe denied any other symptoms prior to the event. She says her vision is at baseline. She also admits that she's been recently treated for sinus infection within her left maxillary sinus. Review of Systems Review of Systems Constitutional: Denies fever or chills [] Eyes: Positive for change in visual acuity without redness or eye pain no foreign body sensation. HENT: Denies nasal congestion or sore throat [] Respiratory: Denies cough or shortness of breath [] Cardiovascular: No additional information not addressed in HPI [] GI: Denies abdominal pain, nausea, vomiting, bloody stools or diarrhea [] : Denies dysuria or hematuria [] Musculoskeletal: Denies back pain or joint pain [] Integument: Denies rash or skin lesions [] Neurologic: Denies headache, focal weakness or sensory changes [] Endocrine: Denies polyuria or polydipsia [] All other systems were reviewed and found to be within normal limits, except as documented in this note. Family History Family History Noncontributory Current Medications Current Medications See nursing for home medications Allergies Allergies Allergies Coded Allergies Type Severity Reaction Last Updated Verified fluorouracil Allergy Intermediate Rash 06/12/16 Yes venom-honey bee Allergy Intermediate SYNCOPE 06/12/16 Yes Physical Exam Physical Exam Of the vital signs recorded on the chart patient noted to be hypertensive which is not new for patient. Constitutional: Well developed, well nourished, no acute distress, non-toxic appearance. [] HENT: Normocephalic, atraumatic, bilateral external ears normal, oropharynx moist, no oral exudates, nose normal. []No appreciable neck bruits Eyes: PERRLA, EOMI, conjunctiva normal, no discharge. Patient's visual villarreal present to confrontation 10 cm. [] Neck: Normal range of motion, no tenderness, supple, no stridor. No appreciable carotid bruits [] Cardiovascular:Heart rate regular rhythm, no murmur [] Lungs & Thorax: Bilateral breath sounds equal apex to auscultation []old surgery scars left chest wall Abdomen: Bowel sounds normal, soft, no tenderness, no masses, no pulsatile masses. [] Old surgery scars Skin: Warm, dry, no erythema, no rash. [] Back: No tenderness, no CVA tenderness. [] Old surgical scars Extremities: No tenderness, no cyanosis, no clubbing, ROM intact, no edema. [] Arthritic changes Neurologic: Alert and oriented X 3, normal motor function, normal sensory function, no focal deficits noted. [] Psychologic: Affect normal, judgement normal, mood normal. [] Based on patient's presentation patient has a stroke scale of 0 1a. Level of consciousness: 0 = Alert; keenly responsive. 1 = Not alert; but arousable by minor stimulation to obey, answer, or respond. 2 = Not alert; requires repeated stimulation to attend, or is obtunded and requires strong or painful stimulation to make movements (not stereotyped). 3 = Responds only with reflex motor or autonomic effects or totally unresponsive , flaccid, and areflexic. 1b. LOC questions: 0 = Answers both questions correctly. 1 = Answers one question correctly. 2 = Answers neither question correctly. 1c. LOC commands: 0 = Performs both tasks correctly. 1 = Performs one task correctly. 2 = Performs neither task correctly. 2. Best gaze: 0 = Normal. 1 = Partial gaze palsy; gaze is abnormal in one or both eyes, but forced deviation or total gaze paresis is not present. 2 = Forced deviation, or total gaze paresis not overcome by the oculocephalic maneuver. 3. Visual: 0 = No visual loss. 1 = Partial hemianopia. 2 = Complete hemianopia. 3 = Bilateral hemianopia (blind including cortical blindness). 4. Facial palsy: 0 = Normal symmetrical movements. 1 = Minor paralysis (flattened nasolabial fold, asymmetry on smiling). 2 = Partial paralysis (total or near-total paralysis of lower face). 3 = Complete paralysis of one or both sides (absence of facial movement in the upper and lower face). 5. Motor arm: 0 = No drift; limb holds 90 (or 45) degrees for full 10 seconds. 1 = Drift; limb holds 90 (or 45) degrees, but drifts down before full 10 seconds ; does not hit bed or other support. 2 = Some effort against gravity; limb cannot get to or maintain (if cued) 90 ( or 45) degrees, drifts down to bed, but has some effort against gravity. 3 = No effort against gravity; limb falls. 4 = No movement. UN = Amputation or joint fusion, explain: 5a. Left arm 5b. Right arm 6. Motor le = No drift; leg holds 30-degree position for full 5 seconds. 1 = Drift; leg falls by the end of the 5-second period but does not hit bed. 2 = Some effort against gravity; leg falls to bed by 5 seconds, but has some effort against gravity. 3 = No effort against gravity; leg falls to bed immediately. 4 = No movement. UN = Amputation or joint fusion, explain: 6a. Left leg 6b. Right leg 7. Limb ataxia: 0 = Absent. 1 = Present in one limb. 2 = Present in two limbs. UN = Amputation or joint fusion 8. Sensory: 0 = Normal; no sensory loss. 1 = Kndk-ny-cvmwnjvk sensory loss; patient feels pinprick is less sharp or is dull on the affected side; or there is a loss of superficial pain with pinprick , but patient is aware of being touched. 2 = Severe to total sensory loss; patient is not aware of being touched in the face, arm, and leg. 9. Best language: 0 = No aphasia; normal. 1 = Tkca-ow-hhvpanyl aphasia; some obvious loss of fluency or facility of comprehension, without significant limitation on ideas expressed or form of expression. Reduction of speech and/or comprehension, however, makes conversation about provided materials difficult or impossible. For example, in conversation about provided materials, examiner can identify picture or naming card content from patient's response. 2 = Severe aphasia; all communication is through fragmentary expression; great need for inference, questioning, and guessing by the listener. Range of information that can be exchanged is limited; listener carries burden of communication. Examiner cannot identify materials provided from patient response. 3 = Mute, global aphasia; no usable speech or auditory comprehension. 10. Dysarthria: 0 = Normal. 1 = Iuyn-ox-hizshxvp dysarthria; patient slurs at least some words and, at worst , can be understood with some difficulty. 2 = Severe dysarthria; patient's speech is so slurred as to be unintelligible in the absence of or out of proportion to any dysphasia, or is mute/anarthric. UN = Intubated or other physical barrier, explain: 11. Extinction and inattention (formerly neglect): 0 = No abnormality. 1 = Visual, tactile, auditory, spatial, or personal inattention or extinction to bilateral simultaneous stimulation in one of the sensory modalities. 2 = Profound jerson-inattention or extinction to more than one modality; does not recognize own hand or orients to only one side of space. EKG EKG Patient EKG shows a sinus rhythm at 77 bpm. There is a prolonged WI interval as well as a right axis changes. But no findings acute STEMI of contralateral changes.[] Radiology/Procedures Radiology/Procedures My interpretation chest x-ray shows slightly hyperexpanded lung volumes. Some blunting a left closed phrenic angle. Implanted electronic device monitor. Vertebral plasty. Findings of prior Jolly rods. Arthritic changes. Surgical clips left upper breast area. CT of head shows no shift, mass, edema, bleed, or fracture. See formal report. Chronic changes. Atrophy. [] Course & Med Decision Making Course & Med Decision Making Pertinent Labs and Imaging studies reviewed. (See chart for details) []Patient is a pleasant 82-year-old female lives by herself who comes in with sudden onset of vision changes that affect both eyes bilaterally after being seen here in her hospital for an outpatient evaluation for her carotid disease patient return today for fear that she may have experienced some sort of intracranial issue that she wanted to have medically evaluated before going back home. Patient is symptom-free at this time but given the duration of her symptoms and her vision changes she could've suffered a TIA. Patient exhibits no ataxia or present visual changes at this time. Patient is as no headache, continued loss of vision. Patient denies any trauma, denies any history of migraine or recent exercise with her symptoms. Differential diagnosis with transient vision loss includes but not limited to ocular foreign bodies intraocular foreign bodies, Central or branch retinal vein occlusion, central branch artery occlusion, anterior ischemic optic neuropathy, no coma, hyphema, optic neuritis, migraines, See Dr. Ibarra note for details. Discussed lab findings and radiographic findings with patient. Patient currently without symptoms and does have follow-ups with neurology at [facility]. 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 Patient requesting discharge and refusing admit. Pt. declines transfer to [facility] for MRI at this time. Pt. states she will follow with her primary and neurology. Patient exhibits UCAR capacity and declines admission at this time. Is aware of risks of discharge and missed diagnosis. Pt. encouraged to obtain ophthalmology follow-up . Pt. to recheck K level and labs with primary or on follow up with consultants. Impression: 1. History of acute bilateral visual changes of very short duration 2. Elevated potassium level- suspect artifact 3. First-degree AV block 4. Elevated BUN 5. Elevated AST 4. Possible TIA vs atypical optic migraine Dragon Disclaimer Dragon Disclaimer This electronic medical record was generated, in whole or in part, using a voice recognition dictation system. Departure Departure: Impression: Primary Impression: Hypertension Additional Impression: Transient vision disturbance of both eyes Referrals: MANJU PRESCOTT MD (PCP) Problem Qualifiers SARKIS IBARRA MD Aug 21, 2017 16:28 BAM DIAZ MD Aug 22, 2017 06:14
[2017-08-21] MEDS ORDERED: IV NORMAL SALINE 1,000ML 1,000 ML IV SCH (16:30)
--- NOTE | 2017-08-21 16:30 | RAD ---
CT head without contrast History: History: Vision changes, code stroke. Comparison: 06/23/2017. Procedure: Axial images are obtained of the head from the skull base through the vertex without IV contrast. Findings: The ventricles and sulci are normal for the patient's age. No mass-effect, intracranial mass, midline shift, hemorrhage or obvious acute infarction is identified. Basilar cisterns are patent. Bone windows demonstrate no significant calvarial abnormality. The visualized paranasal sinuses appear clear. Impression: 1. No acute intracranial process. ER physician Dr. Pandya was called at [facility] was called at time of dictation. PQRS Compliance Statement: One or more of the following individualized dose reduction techniques were utilized for this examination: 1. Automated exposure control 2. Adjustment of the mA and/or kV according to patient size 3. Use of iterative reconstruction technique
--- NOTE | 2017-08-21 16:32 | RAD ---
EXAM: CHEST 1 VIEW History: Vision changes COMPARISON: 03/08/2017 TECHNIQUE: Single portable radiograph of the chest FINDINGS: The cardiac silhouette is unremarkable. The lungs are clear bilaterally. The costophrenic sulci are clear and well demarcated. Electronic monitoring device projects over the inferior hemithorax. IMPRESSION: No radiographic evidence of an acute cardiopulmonary process.
--- NOTE | 2017-08-21 16:35 | EKG ---
[address] [address] Test Date: 2017-08-21 Test Time: 16:33:24 Pat Name: CARROLL APODACA Department: Room: Gender: F Security Consultant: DIANN : 1935 Requested By: SARKIS IBARRA Order Number: [id number] Reading MD: Hermes Hanna Measurements Intervals [place] Rate: 77 P: 90 WV: 232 QRS: 99 QRSD: 82 T: 59 QT: 392 QTc: 445 Interpretive Statements SINUS RHYTHM PROLONGED WV INTERVAL RIGHTWARD AXIS LOW LIMB LEAD VOLTAGE ABNORMAL ECG RI6.01 Compared to ECG 06/01/2017 07:47:04 Right-axis deviation now present Electronically Signed On 08-25-2017 14:52:44 MUSIC EDUCATION ADJUNCT PROFESSOR by Hermes Hanna
[2017-08-21 17:22] LABS: BASO % 0 % (0-3); EOS # 0.1 x10^3/uL (0.0-0.7); EOS % 2 % (0-3); HEMATOCRIT 41.3 % (36.0-47.0); HEMOGLOBIN 13.7 g/dL (12.0-15.5); LYMPH % 34 % (24-48); MEAN CORPUSCULAR HEMOGLOBIN 29 pg (25-35); MEAN CORPUSCULAR HGB CONC 33 g/dL (31-37); MEAN CORPUSCULAR VOLUME 88 fL (79-100); MONO # 0.8 x10^3/uL (0.0-1.1); MONO % 13 % (0-9); NEUT % 51 % (31-73); PLATELET COUNT 228 x10^3/uL (140-400); RED BLOOD COUNT 4.71 x10^6/uL (3.50-5.40); RED CELL DISTRIBUTION WIDTH 13.8 % (11.5-14.5); WHITE BLOOD COUNT 5.9 x10^3/uL (4.0-11.0)
[2017-08-21 17:32] LABS: ALBUMIN 3.5 g/dL (3.4-5.0); C REACTIVE PROTEIN 0.9 mg/L (0-3.3); CALCIUM 9.1 mg/dL (8.5-10.1); TOTAL BILIRUBIN 0.5 mg/dL (0.2-1.0); TOTAL PROTEIN 7.1 g/dL (6.4-8.2)
[2017-08-21 17:34] LABS: POTASSIUM 5.3 mmol/L (3.5-5.1)
[2017-08-21 18:26] LABS: CLARITY,URINE CLEAR; COLOR,URINE YELLOW
[2017-08-21 18:27] LABS: BILIRUBIN,URINE NEG (NEG); GLUCOSE,URINE NEG (NEG)
[2017-08-21 18:28] LABS: BACTERIA,URINE 0 /HPF (0-FEW); NITRITE,URINE NEG (NEG); RBC,URINE 0 /HPF (0-2); SQUAMOUS EPITHELIAL CELL,UR FEW /LPF; UROBILINOGEN,URINE 0.2 mg/dL (0.2 mg/dL); WBC,URINE OCC /HPF (0-4)
[2017-08-21 18:30] LABS: SEDIMENTATION RATE 16 (0-25)
[2017-08-21 18:54] VITALS: BP 168/84
== END 2017-08-21 19:13 | disposition home or self-care (01) ==
LOC: ER 15:58
DX: H53.8 Other visual disturbances (principal); I10 Essential (primary) hypertension; R74.0 Nonspecific elevation of levels of transaminase and lactic acid dehydrogenase [LDH]; R79.89 Other specified abnormal findings of blood chemistry; I44.0 Atrioventricular block, first degree; I48.91 Unspecified atrial fibrillation; F41.9 Anxiety disorder, unspecified; I25.10 Atherosclerotic heart disease of native coronary artery without angina pectoris; E78.00 Pure hypercholesterolemia, unspecified; E03.9 Hypothyroidism, unspecified; Z88.8 Allergy status to other drugs, medicaments and biological substances; Z91.030 Bee allergy status
CPT/HCPCS: 36415; 70450; 71045; 80053; 81001; 84484; 85025; 85610; 85651; 85730; 86140; 93005; 96360; 96361; 99285-25; J7030

== ENCOUNTER → 2017-08-21 | Outpatient (CLI) | payer MEDICARE, OTHER ==
[~2017-08-21] MED LIST changes: +IOHEXOL 300 MG/ML 75 ML VIAL. IV ONE
--- NOTE | 2017-08-21 10:36 | RAD ---
Examination: CT abdomen without and with IV contrast and CT pelvis with IV contrast History: History of pancreatic cyst, elevated lipase levels Comparison: 03/07/2017 Technique: Axial CT images of the abdomen was performed without and with IV contrast. Axial CT images of the pelvis were performed with IV contrast. Coronal and sagittal reformats are performed PQRS Compliance Statement: One or more of the following individualized dose reduction techniques were utilized for this examination: 1. Automated exposure control 2. Adjustment of the mA and/or kV according to patient size 3. Use of iterative reconstruction technique Findings: Minimal bibasal lung atelectasis No evidence of free air identified in the abdomen. Moderate hiatal hernia. The visualized liver, spleen, adrenals grossly appears unremarkable. The gallbladder is mildly distended. Small hypodensity identified in the pancreatic head and neck junction measuring 1.1 cm appears slightly less prominent compared to prior exam. The stomach is mildly distended. The small bowel is nondilated. Feces and gas noted throughout the colon. The urinary bladder is mildly distended. The visualized uterus, adnexa grossly appears unremarkable. The bilateral kidneys enhance symmetrically. Small hypodensity identified in the midpole of the right kidney measuring 1.1 cm similar to prior exam likely cyst. Old fracture of the right inferior pubic ramus is again identified. Surgical clip identified in the left inguinal region. Lumbar hardware identified at L4-L5 vertebral level. There is mild anterolisthesis of L2 on L3 and mild retrolisthesis of L1 on L2. There is severe intervertebral disc height loss identified throughout the lumbar spine particularly at L1-L2, L2-L3 vertebral levels. There is moderate compression change of T12 vertebral body with kyphoplasty changes. Impression: 1. A 1.1 cm cystic structure identified at the pancreatic head and neck junction appears less prominent compared to prior exam. 2. Moderate hiatal hernia.
--- NOTE | 2017-08-21 11:32 | RAD ---
Exam : Carotid Duplex with Grayscale Ultrasound and Spectral and Color Doppler Analysis: Clinical Indications: Carotid stenosis. Comparison study: Carotid ultrasound June 12, 2016 PQRS Compliance Statement - Stenosis calculations for CT, MR and conventional angiography are based upon measurement of the distal ICA diameter in accordance with the NASCET methodology. Stenosis calculations for carotid ultrasound studies are derived from validated velocity criteria which are known to correlate with the NASCET methodology. Findings: The common, internal and external carotid arteries were examined by grayscale, color and spectral Doppler ultrasound. Atherosclerotic plaquing is seen in the bilateral carotid bulbs extending of the proximal internal carotid arteries, right greater than left. Flow in both vertebral arteries was antegrade . The following are the velocities and ratios in the carotid arteries on both sides: RIGHT ICA PV: 139cm/sec RIGHT CCA PV: 67cm/sec RIGHT ICA ED: 28cm/sec RIGHT IC/CCPV: 2.1 RIGHT VERTEBRAL: antegrade flow LEFT ICA PV: 89cm/sec LEFT CCA PV: 56cm/sec LEFT ICA ED: 27 cm/sec LEFT IC/CCPV: Less than 2 LEFT VERTEBRAL: antegrade flow <50% ICA Stenosis: PSV < 125cm/s (EDV < 40cm/s; SVR < 2.0) 50-69% ICA Stenosis: PSV < 125-229cm/s (EDV 40-99cm/s; SVR 2.0-3.9) >70% ICA Stenosis: PSV > 230cm/s (EDV >100cm/s; SVR >4.0) Impression: Atherosclerotic plaquing in the bilateral carotid bulbs extending of the proximal internal carotid arteries. On the right there ultrasound evidence of a 50-69% stenosis, similar to prior exam. On the left is less than 50% stenosis by ultrasound criteria. This is also unchanged.
== END | disposition home or self-care (01) ==
LOC: CT 08:57
PROVIDERS: ATTEND Internal Medicine
DX: K86.2 Cyst of pancreas (principal); I65.23 Occlusion and stenosis of bilateral carotid arteries; K44.9 Diaphragmatic hernia without obstruction or gangrene
CPT/HCPCS: 74174; 93880; Q9967

== ENCOUNTER → 2017-12-10 | Outpatient (CLI) | payer MEDICARE, OTHER ==
--- NOTE | 2017-12-10 14:30 | EKG ---
[address] [address] Test Date: 2017-12-10 Test Time: 12:14:56 Pat Name: CARROLL APODACA Department: Room: Gender: F Soils Technician: RIVKA : 1935 Requested By: LESTER WINKLER Order Number: [id number] Reading MD: Measurements Intervals [place] Rate: 65 P: 58 MA: 230 QRS: 80 QRSD: 82 T: 59 QT: 418 QTc: 435 Interpretive Statements SINUS RHYTHM ATRIAL PREMATURE COMPLEX(ES) PROLONGED MA INTERVAL QRS(T) CONTOUR ABNORMALITY CONSISTENT WITH ANTEROSEPTAL INFARCT PROBABLY OLD ABNORMAL ECG RI6.01 No previous ECG available for comparison
== END | disposition home or self-care (01) ==
LOC: EKG 12:02
PROVIDERS: ATTEND Psychiatry & Neurology Neurology with Special Qualifications in Child Neurology
DX: G43.009 Migraine without aura, not intractable, without status migrainosus (principal); R94.31 Abnormal electrocardiogram [ECG] [EKG]
CPT/HCPCS: 93005

== ENCOUNTER → 2018-04-09 | Outpatient (CLI) | payer MEDICARE, OTHER ==
--- NOTE | 2018-04-10 08:55 | RAD ---
DATE: 04/09/2018 EXAM: DIGITAL SCREEN RT W/CAD HISTORY: Routine screening. Left mastectomy in 1993. COMPARISON: 04/04/2017 right screening mammogram This study was interpreted with the benefit of Computerized Aided Detection (CAD ). Breast Density: DENSE The breast parenchyma is dense, which could reduce the sensitivity of mammography. Breast parenchyma level density D. FINDINGS: Benign calcifications are present. Parenchymal distribution is stable. No mass or distortion in the interval. There is questionable increase in calcifications involving the right middle one third of the breast on the CC projection. These calcifications are not definitely identified on the MLO projection. IMPRESSION: Spot magnification imaging is recommended. Lateral medial view is recommended. Ultrasound may be needed. BI-RADS CATEGORY: 0 INCOMPLETE: NEEDS ADDITIONAL IMAGING EVALUATION AND/OR PRIOR MAMMOGRAMS FOR COMPARISON. RECOMMENDED FOLLOW-UP: PQRS compliance statement: Patient information was entered into a reminder system with a target due date for the next mammogram. Mammography is a sensitive method for finding small breast cancers, but it does not detect them all and is not a substitute for careful clinical examination. A negative mammogram does not negate a clinically suspicious finding and should not result in delay in biopsying a clinically suspicious abnormality. "Our facility is accredited by the [employer] Mammography Program." MTDD
== END | disposition home or self-care (01) ==
LOC: MAMMO 08:54
PROVIDERS: ATTEND Obstetrics & Gynecology
DX: Z12.31 Encounter for screening mammogram for malignant neoplasm of breast (principal); I10 Essential (primary) hypertension; E11.9 Type 2 diabetes mellitus without complications; E78.5 Hyperlipidemia, unspecified; E78.00 Pure hypercholesterolemia, unspecified; E03.9 Hypothyroidism, unspecified; I48.0 Paroxysmal atrial fibrillation; G43.009 Migraine without aura, not intractable, without status migrainosus; I25.10 Atherosclerotic heart disease of native coronary artery without angina pectoris; Z85.3 Personal history of malignant neoplasm of breast; Z90.12 Acquired absence of left breast and nipple; Z88.8 Allergy status to other drugs, medicaments and biological substances; Z82.49 Family history of ischemic heart disease and other diseases of the circulatory system
CPT/HCPCS: 77067

== ENCOUNTER → 2018-04-17 | Outpatient (CLI) | payer MEDICARE, OTHER ==
--- NOTE | 2018-04-17 14:44 | RAD ---
DATE: 04/17/2018 EXAM: DIGITAL DIAGNOSTIC RT HISTORY: Suspicious screening study COMPARISON: 04/09/2018, 04/04/2017, 04/02/2016 This study was interpreted with the benefit of Computerized Aided Detection (CAD). Breast Density: HETERO The breast parenchyma is heterogenously dense, which could reduce sensitivity of mammography. Breast parenchyma level C. FINDINGS: Additional views including magnification and straight medial lateral views were obtained and correlated with the screening images. There are scattered calcifications in the right breast. There are 2 clusters of microcalcifications near the 12:00 location in the right breast which have progressed since previous studies. The calcifications are pleomorphic with some irregularity. The more medially positioned microcalcifications have shown the greatest progression. The findings are mildly suspicious. In view of the patient's history of breast cancer, biopsy is suggested. IMPRESSION: Two clusters of increasing microcalcification are present at the 12:00 location in the right breast. Stereotactic biopsy is suggested for further evaluation. Note: The findings were given to the patient at the time of the exam by the manufacturing technologist. The patient understands the recommendation for biopsy and will follow-up with the ordering physician. BI-RADS CATEGORY: 4 SUSPICIOUS ABNORMALITY- BIOPSY SHOULD BE CONSIDERED RECOMMENDED FOLLOW-UP: BIO BIOPSY RECOMMENDED PQRS compliance statement: Patient information was entered into a reminder system with a target due date for the next mammogram. Mammography is a sensitive method for finding small breast cancers, but it does not detect them all and is not a substitute for careful clinical examination. A negative mammogram does not negate a clinically suspicious finding and should not result in delay in biopsying a clinically suspicious abnormality. "Our facility is accredited by the [employer] Mammography Program."
== END | disposition home or self-care (01) ==
LOC: MAMMO 13:47
PROVIDERS: ATTEND Obstetrics & Gynecology
DX: R92.8 Other abnormal and inconclusive findings on diagnostic imaging of breast (principal); Z85.3 Personal history of malignant neoplasm of breast
CPT/HCPCS: 77065

== ENCOUNTER → 2018-08-25 | Outpatient (CLI) | payer MEDICARE, OTHER ==
[~2018-08-25] MED LIST changes: +IOHEXOL 240 MG/ML 50ML VIAL. ONE; +IOHEXOL 240 MG/ML 50ML VIAL. PO ONE; +IOHEXOL 300 MG/ML 75 ML VIAL. IV ONE
--- NOTE | 2018-08-25 11:38 | RAD ---
Carotid ultrasound, 08/25/2018: HISTORY: Peripheral vascular disease Duplex evaluation of the carotid arteries in the neck was performed including grayscale, color-flow and spectral Doppler analysis. There is moderate intimal thickening in the common carotid arteries with moderate plaquing at the carotid bifurcations. The plaques are partially calcified. On the right the peak systolic velocity in the internal carotid artery is 116 cm/s with an end-diastolic velocity of 35 cm/s and an internal carotid to common carotid artery ratio 1.5. These Doppler findings suggest luminal narrowing in the 0-50 percent diameter range. On the left, the peak systolic velocity in the proximal internal carotid artery is 65 cm/s within end-diastolic velocity of 19 cm/s and an internal carotid to common carotid artery ratio 1.2. These Doppler findings suggest narrowing in the 0-50 percent diameter range. A higher peak systolic velocity of 127 cm/s was noted in the distal left internal carotid artery as it dives deep. This reading is likely on a technical basis. The color images do not suggest high-grade stenosis at this level. Antegrade flow is present in both vertebral arteries in the neck. IMPRESSION: Moderate atherosclerotic plaquing at both carotid bifurcations with underlying luminal narrowing in the 0-50 percent diameter range bilaterally. Note: Stenosis calculations for CT, MRA and conventional angiography are based upon determination of the distal ICA diameter in accordance with the NASCET methodology. Stenosis calculations for Doppler studies are derived from validated velocity criteria which are known to correlate with NASCET methodology of determining stenosis. Electronically signed by: Jelani Weeks MD (08/25/2018 11:35 AM) [facility]
--- NOTE | 2018-08-25 14:15 | RAD ---
CT of the abdomen and pelvis with and without contrast, 08/25/2018: HISTORY: Follow-up pancreatic cyst Multidetector CT imaging was performed following oral and IV administration of contrast. Comparison is made to multiple previous studies including an exam from 08/21/2017 and a study from 04/14/2013. There are calcified granulomata in the lung bases. There is streaky atelectasis and/or scarring in the lung bases. A moderate-sized hiatal hernia is present. No hepatic abnormality is seen. The gallbladder is unremarkable. The spleen shows no abnormality. Artifacts arising from surgical implants in the lumbar spine degrade image quality at the renal levels. The kidneys show no evidence of obstruction. There is a suggestion of a tiny cyst anteriorly in the right kidney. Previous studies have demonstrated a small low-density lesion in the pancreas at the junction of the pancreatic body and head. It measures approximate 9 mm in greatest diameter. It appears stable when compared to the 08/21/2017 exam. There appear slightly smaller when compared to the 04/14/2013 exam at which time it measured 12 x 8 mm on the axial images. Its stability suggests a benign etiology. No new pancreatic abnormality is seen. There is moderate calcific plaquing of the abdominal aorta without evidence of aneurysm. No abdominal or pelvic adenopathy is seen. The cecum is low-lying in the pelvis. The bowel loops are not dilated. No free fluid or free air is evident in the abdomen or pelvis. There has been previous posterior spinal fusion and instrumentation at L4 and L5 with a mild unchanged anterolisthesis at L4-5. There is an old vertebral compression fracture at T12 with associated vertebroplasty change. There is moderate multilevel degenerative change in the upper lumbar spine. IMPRESSION: 1. Stable small cystic lesion in the pancreas. 2. Moderate-sized hiatal hernia. 3. No acute abdominal abnormality is detected. PQRS Compliance Statement: One or more of the following individualized dose reduction techniques were utilized for this examination: 1. Automated exposure control 2. Adjustment of the mA and/or kV according to patient size 3. Use of iterative reconstruction technique Electronically signed by: Jelani Weeks MD (08/25/2018 2:12 PM) [facility]
== END | disposition home or self-care (01) ==
LOC: US 09:31
PROVIDERS: ATTEND Internal Medicine
DX: I65.23 Occlusion and stenosis of bilateral carotid arteries (principal); K86.2 Cyst of pancreas; K44.9 Diaphragmatic hernia without obstruction or gangrene; M48.54XD Collapsed vertebra, not elsewhere classified, thoracic region, subsequent encounter for fracture with routine healing; J84.10 Pulmonary fibrosis, unspecified; I10 Essential (primary) hypertension
CPT/HCPCS: 74177; 93880; Q9967

== ENCOUNTER → 2018-12-14 | Outpatient (CLI) | payer MEDICARE, OTHER ==
[~2018-12-14] MED LIST changes: -IOHEXOL 240 MG/ML 50ML VIAL. ONE; -IOHEXOL 240 MG/ML 50ML VIAL. PO ONE; -IOHEXOL 300 MG/ML 75 ML VIAL. IV ONE
--- NOTE | 2018-12-14 13:31 | RAD ---
DATE: 12/14/2018. EXAM: DIGITAL DIAGNOSTIC RT. HISTORY: Six-month follow-up after benign biopsy of right breast microcalcifications. COMPARISON: 04/17/2018. This study was interpreted with the benefit of Computerized Aided Detection (CAD). FINDINGS: Breast Density: DENSE The breast parenchyma is dense, which could reduce the sensitivity of mammography. Breast parenchyma level density D.. Post biopsy clips are noted at the former site of biopsied calcifications, which have been mostly removed. Scattered, vascular and coarse calcifications elsewhere are stable and benign. There are no suspicious masses, microcalcifications or architectural distortion. BI-RADS CATEGORY: 2 BENIGN FINDING(S). RECOMMENDED FOLLOW-UP: 12M 12 MONTH FOLLOW-UP. PQRS compliance statement: Patient information was entered into a reminder system with a target due date 12/15/2019 for the next mammogram. Mammography is a sensitive method for finding small breast cancers, but it does not detect them all and is not a substitute for careful clinical examination. A negative mammogram does not negate a clinically suspicious finding and should not result in delay in biopsying a clinically suspicious abnormality. "Our facility is accredited by the [employer] Mammography Program."
== END | disposition home or self-care (01) ==
LOC: MAMMO 12:47
PROVIDERS: ATTEND Surgery
DX: R92.0 Mammographic microcalcification found on diagnostic imaging of breast (principal)
CPT/HCPCS: 77065

== ENCOUNTER → 2019-03-18 | Outpatient (CLI) | payer MEDICARE, OTHER ==
[~2019-03-18] MED LIST changes: +IOHEXOL 240 MG/ML 50ML VIAL. ONE; +IOHEXOL 300 MG/ML 75 ML VIAL. IV ONE
--- NOTE | 2019-03-18 10:57 | RAD ---
CT CHEST ABD PELVIS W/CONTRAST Indication: Lung nodules. Abnormal weight loss. Hernia Exposure: One or more of the following individualized dose reduction techniques were utilized for this examination: 1. Automated exposure control 2. Adjustment of the mA and/or kV according to patient size 3. Use of iterative reconstruction technique. Technique: Intravenous contrast was given. Oral contrast was given. Comparison: Prior CT abdomen pelvis of 08/25/2018. CHEST: Thoracic aorta is mildly calcified. Mild irregularity of the wall of the ascending aorta is likely due to pulsatility artifact. Ascending aorta measures 3.2 cm. No definite aortic dissection. No aortic aneurysm. Main central pulmonary arteries are grossly patent. Coronary artery calcifications. Thyroid is symmetric. Mild right hilar lymph node enlargement, measuring 2 x 1.5 cm. Enlarged subcarinal lymph node measuring 2.5 x 1.9 cm. Precarinal lymph node measures 0.7 x 1.3 cm. Surgical clips in the left axilla. No significant right axillary lymph node enlargement. Numerous ill-defined nodular opacities of varying size are seen in the right lower lobe and right middle lobe largest measures 19 x 16 mm. Linear opacity in the left lung compatible with atelectasis. No evidence of pneumothorax. Trachea and mainstem bronchi are patent. Degenerative spondylosis. Moderate compression fracture of the T8 vertebral body, this was at least partially present on a lateral chest radiograph of 06/30/2016 but has slightly progressed since that time. Mild sclerotic change within this vertebral body. Milder anterior wedge deformity of T6, probably similar to the previous chest x-ray. Compression fracture of T12 with cement, overall similar to the prior chest radiograph. No overtly aggressive bone destruction. There is some calcific density within the T6-T7 disc which extends into the anterior spinal canal. IMPRESSION: 1. Numerous ill-defined nodular masses in the right lower lobe and right middle lobe. Could be of inflammatory or infectious etiology, but primary or secondary neoplasm is also possible. Recommend short-term imaging follow-up. 2. Mildly enlarged hilar and mediastinal lymph nodes. These are also nonspecific but could be neoplastic in nature. 3. Severe thoracic spondylosis. Multiple compression fractures, mostly appears similar to prior chest radiograph from 2016, although the T8 fracture has likely progressed. Mild sclerotic density within the T8 vertebral body probably secondary to the chronic compression although pathologic fracture is considered. Abdomen pelvis: There is spinal fixation hardware which results in regional streak artifact. Liver and spleen are unremarkable. There is a small low-density lesion within the pancreas at the junction of the head and body which measures 9 mm x 12 mm. This has not progressed since an earlier study of 03/07/2017 at which time it measured 12 x 12 mm on similar slice. Measures 16 Hounsfield units, therefore likely a cyst. No acute peripancreatic inflammatory type changes are seen. No evidence of adrenal mass. Kidneys demonstrate symmetric enhancement without hydronephrosis or significant mass lesion. No calcified gallstone. The aorta is calcified without gross aneurysm. No significant lymph node enlargement. Moderate size hiatal hernia with stomach in the lower chest is again identified, partially seen on the prior exam. No significant small bowel distention. Mild retained stool in the colon. No evidence of acute colitis. No evidence of ascites or pneumoperitoneum. Urinary bladder is incompletely distended but appears unremarkable. No evidence of pelvic mass. Postsurgical changes are again seen in the spine. Severe degenerative spondylosis. Appearance and alignment of the spine is similar to the prior exam no evidence of focal aggressive bone destruction. Degenerative changes at the skeletal pelvis. Old fracture deformities of the right obturator ring. IMPRESSION: 1. Small low-density mass of the pancreas has not progressed since the previous exam. 2. Hiatal hernia is redemonstrated. 3. No new acute findings are seen in the abdomen or pelvis. Electronically signed by: Jay oSuza MD (03/18/2019 10:54 AM) [id number]
== END | disposition home or self-care (01) ==
LOC: CT 08:24
PROVIDERS: ATTEND Family Medicine
DX: R59.0 Localized enlarged lymph nodes (principal); M47.894 Other spondylosis, thoracic region; K44.9 Diaphragmatic hernia without obstruction or gangrene; K86.89 Other specified diseases of pancreas; R63.4 Abnormal weight loss
CPT/HCPCS: 71260; 74177; Q9967

== ENCOUNTER → 2019-09-20 | Outpatient (CLI) | payer MEDICARE, OTHER ==
[~2019-09-20] MED LIST changes: +CONTRAST GIVEN MC PRN; +IBAN150T20 PO; -IBAN150T4 PO; -IOHEXOL 240 MG/ML 50ML VIAL. ONE; +IOHEXOL 240 MG/ML 50ML VIAL. PO ONE; +VITA-54 PO; -VITA400C6 PO
[2019-09-20 10:55] LABS: CREATININE 1.1 mg/dL (0.6-1.0); GFR 47.2
--- NOTE | 2019-09-20 11:56 | RAD ---
CT of the abdomen and pelvis with IV and oral contrast compared to similar examination dated March 18, 2019 for hiatal hernia, pseudocyst of the pancreas. TECHNIQUE: Contiguous helical 3 mm axial images are obtained from the apex of diaphragm to the pelvic floor following administration of IV and oral contrast. Sagittal and coronal reformations are evaluated. FINDINGS: LUNGS: There is calcified granuloma in the lung base and there is atelectasis. Mediastinum: Cardiac enlargement, sliding-type hiatal hernia. Liver: Normal. Kidneys: Normal, though there is partial obscuration of the right lower pole due to streak artifact from spinal hardware. Adrenal glands: Normal. Spleen: Normal. Pancreas: Redemonstrated 8 mm cystic lesion of the neck of the pancreas with no interval enlargement or change in appearance. This is reduced in size since the CT scan dated January 07, 2013, and is likely benign. There gallbladder: Normal. Mesentery: No free or loculated fluid collections. No suspicious adenopathy. Large and small bowel: Heterogeneously opacified with no gross abnormalities. Urinary bladder: Normal. Pelvic organs: Atrophic. No adnexal masses. There is some free fluid within the uterine canal, which is stable, but may be age inappropriate. Muscular skeletal: There are severe degenerative changes and there are postsurgical changes of pedicle screw and landy fixation in the lower lumbar spine. There has been a prior kyphoplasty at T12. IMPRESSION: 1. Stable appearing sliding-type hiatal hernia. 2. Stable appearing subcentimeter cystic lesion involving the neck of the pancreas, smaller than in 2013. This is almost certainly benign. 3. Stable appearing trace amount of free fluid within the uterus which may be age inappropriate. Correlate clinically. PQRS Compliance Statement: One or more of the following individualized dose reduction techniques were utilized for this examination: 1. Automated exposure control 2. Adjustment of the mA and/or kV according to patient size 3. Use of iterative reconstruction technique Electronically signed by: Brad Stahl MD (09/20/2019 11:53 AM) [id number]
--- NOTE | 2019-09-20 13:22 | RAD ---
EXAM: Carotid Doppler sonogram. HISTORY: Carotid stenosis. TECHNIQUE: Adams scale and color Doppler sonographic evaluation of the neck with spectral waveform analysis was performed and static images are submitted for review. FINDINGS: There is intimal thickening involving the right common carotid artery and mild to moderate atherosclerotic plaque involving the carotid bulbs and internal and external carotid arteries. The peak systolic velocity within the right common carotid artery is 106 cm/sec. The peak systolic velocity within the right internal carotid artery is 181 cm/sec and the end diastolic velocity within the right internal carotid artery is 29 cm/sec. The right ICA/CCA ratio is 2.3. The peak systolic velocity within the left common carotid artery is 85 cm/sec. The peak systolic velocity within the left internal carotid artery is 85 cm/sec and the end diastolic velocity within the left internal carotid artery is 24 cm/sec. The left ICA/CCA ratio is 1.3. There is normal antegrade flow within both vertebral arteries. IMPRESSION: 1. Doppler findings suggesting 50-69 percent stenosis involving the right ICA. This is increased compared to the prior study. 2. No Doppler evidence of greater than 50 percent stenosis involving the left ICA. 3. Intimal thickening involving the right common carotid artery and mild to moderate atherosclerotic plaque involving the carotid bulbs and internal and external carotid arteries. PQRS Compliance Statement - Stenosis calculations for CT, MR and conventional angiography are based upon measurement of the distal ICA diameter in accordance with the NASCET methodology. Stenosis calculations for carotid ultrasound studies are derived from validated velocity criteria which are known to correlate with the NASCET methodology. Electronically signed by: Heena Duff MD (09/20/2019 1:19 PM) [id number]
== END | disposition home or self-care (01) ==
LOC: US 09:19
PROVIDERS: ATTEND Internal Medicine
DX: Z01.812 Encounter for preprocedural laboratory examination (principal); I65.21 Occlusion and stenosis of right carotid artery; J84.10 Pulmonary fibrosis, unspecified; K44.9 Diaphragmatic hernia without obstruction or gangrene; I51.7 Cardiomegaly; K86.2 Cyst of pancreas
CPT/HCPCS: 36415; 74177; 82565; 84520; 93880; Q9966; Q9967

== ENCOUNTER → 2020-03-10 | Outpatient (CLI) | payer MEDICARE, OTHER ==
[~2020-03-10] MED LIST changes: -CONTRAST GIVEN MC PRN; -IOHEXOL 240 MG/ML 50ML VIAL. PO ONE; -IOHEXOL 300 MG/ML 75 ML VIAL. IV ONE
--- NOTE | 2020-03-10 12:50 | RAD ---
EXAM: Head CT without contrast. HISTORY: Headache. TECHNIQUE: Computed tomographic images of the head were obtained without contrast. *One or more of the following individualized dose reduction techniques were utilized for this examination: 1. Automated exposure control. 2. Adjustment of the mA and/or kV according to patient size. 3. Use of iterative reconstruction technique. COMPARISON: 2017. FINDINGS: There is no acute or subacute extra-axial or intraparenchymal hemorrhage. There is no mass effect or midline shift. There is no hydrocephalus. There are areas of decreased attenuation within the cerebral white matter, nonspecific and likely related to chronic small vessel disease. There is cerebral volume loss. There is a small air-fluid level or posterior mucosal thickening involving the visualized left maxillary sinus. The orbits and mastoid air cells are unremarkable. No calvarial lesion is seen. IMPRESSION: 1. No acute intracranial finding. 2. Bilateral cerebral white matter changes, likely due to chronic small vessel disease. 3. Cerebral volume loss. Electronically signed by: Heena Duff MD (03/10/2020 12:47 PM) [facility]
== END | disposition home or self-care (01) ==
LOC: CT 12:26
PROVIDERS: ATTEND Internal Medicine
DX: R51 Headache (principal); J34.89 Other specified disorders of nose and nasal sinuses
CPT/HCPCS: 70450

== ENCOUNTER 2020-03-17 02:15 | Emergency (ER) | payer MEDICARE, OTHER ==
[~2020-03-17] VITALS: Ht 167.6 cm; Wt 66.7 kg
[2020-03-17] MEDS ORDERED: ACETAMINOPHEN 325 MG TABLET PO ONE (02:45)
--- NOTE | 2020-03-17 02:51 | PHYS DOC ---
Past History Past Medical History: A-Fib, Anxiety, Arthritis, CAD, Cancer, High Cholesterol, Hypertension, Hypothyroid, Other Additional Past Medical Histor: syncope Past Surgical History: Appendectomy, Cancer Surgery, Tonsillectomy, Other Additional Past Surgical Histo: lumbar back fusion and Carina landy placement, kyphoplasty Smoking: Non-smoker Alcohol Use: None Drug Use: None General Adult EDM: Chief Complaint: HEADACHE HPI: HPI: 84-year-old female presents via EMS with headache and elevated blood pressure. Patient woke from her sleep at 1:00 this morning with headache. She checked her blood pressure and it was in the 180s systolic. She was concerned about this so she decided come to the emergency room. Prior to arrival, the patient's blood pressure has been improving. Her headache is getting better without any medication. In the ED her first blood pressure was 140s. The patient states her headache is very mild at this time. She has no other complaints. She has not had a fever or chills. She has been eating and drinking normally. She denies any urinary symptoms. Review of Systems: Review of Systems: Constitutional: Denies fever or chills. High blood pressure Eyes: Denies change in visual acuity HENT: Denies nasal congestion or sore throat Respiratory: Denies cough or shortness of breath Cardiovascular: Denies chest pain or edema GI: Denies abdominal pain, nausea, vomiting, bloody stools or diarrhea : Denies dysuria Musculoskeletal: Denies back pain or joint pain Integument: Denies rash Neurologic: Headache. Denies focal weakness or sensory changes Endocrine: Denies polyuria or polydipsia Lymphatic: Denies swollen glands Psychiatric: Denies depression or anxiety Heart Score: Risk Factors: Risk Factors: DM, Current or recent (<one month) smoker, HTN, HLP, family history of CAD, obesity. Risk Scores: Score 0 - 3: 2.5% MACE over next 6 weeks - Discharge Home Score 4 - 6: 20.3% MACE over next 6 weeks - Admit for Clinical Observation Score 7 - 10: 72.7% MACE over next 6 weeks - Early Invasive Strategies Current Medications: Current Meds: Current Medications Medications (Trade) Dose Ordered Sig/James Start Time Stop Time Status Last Admin Dose Admin Acetaminophen (Tylenol) 650 mg 1X ONCE 03/17/20 02:45 03/17/20 02:46 UNV Allergies: Allergies: Allergies Coded Allergies Type Severity Reaction Last Updated Verified fluorouracil Allergy Intermediate Rash 09/20/19 Yes venom-honey bee Allergy Intermediate SYNCOPE 09/20/19 Yes Physical Exam: PE: Constitutional: Well developed, well nourished, no acute distress, non-toxic appearance. [] HENT: Normocephalic, atraumatic, bilateral external ears normal, oropharynx moist, no oral exudates, nose normal. [] Eyes: PERRLA, EOMI, conjunctiva normal, no discharge. [] Neck: Normal range of motion, no tenderness, supple, no stridor. [] Cardiovascular: Heart rate regular rhythm, no murmur [] Lungs & Thorax: Bilateral breath sounds clear to auscultation [] Abdomen: Bowel sounds normal, soft, no tenderness, no masses, no pulsatile masses. [] Skin: Warm, dry, no erythema, no rash. [] Back: No tenderness, no CVA tenderness. [] Extremities: No tenderness, no cyanosis, no clubbing, ROM intact, no edema. [] Neurologic: Alert and oriented X 3, normal motor function, normal sensory function, no focal deficits noted. [] Psychologic: Affect normal, judgement normal, mood normal. [] Current Patient Data: Vital Signs: Vital Signs Date Time Temp Pulse Resp B/P (MAP) Pulse Ox O2 Delivery O2 Flow Rate FiO2 03/17/20 02:15 97.7 83 18 146/70 (95) 97 Room Air EKG: EKG: [] Radiology/Procedures: Radiology/Procedures: [] Course & Med Decision Making: Course & Med Decision Making Pertinent Labs and Imaging studies reviewed. (See chart for details) On arrival the patient's blood pressure was controlled. Her headache is going away. I have given her 650 of Tylenol for her headache. I do not believe it is necessary to draw blood work. Patient does not necessarily want me to draw blood work unless I think it is absolutely necessary. I do not. The patient is stable for discharge at this time. [] Dragon Disclaimer: Dragon Disclaimer: This electronic medical record was generated, in whole or in part, using a voice recognition dictation system. Departure Departure: Impression: Primary Impression: Hypertension Additional Impression: Headache Qualified Codes: G44.1 - Vascular headache, not elsewhere classified Disposition: HOME/RESIDENCE PRIOR TO ADM Condition: STABLE Referrals: MANJU PRESCOTT MD (PCP) Patient Instructions: General Headache Without Cause, [id number], Hypertension, [id number] Justification of Admission: Justification of Admission: Justification of Admission Dx: N/A ALEXEY SORENSEN DO Mar 17, 2020 02:51
[2020-03-17 02:53] VITALS: BP 135/72
== END 2020-03-17 02:55 | disposition home or self-care (01) ==
LOC: ER 02:15
DX: I10 Essential (primary) hypertension (principal); G44.1 Vascular headache, not elsewhere classified; I48.91 Unspecified atrial fibrillation; F41.9 Anxiety disorder, unspecified; M19.90 Unspecified osteoarthritis, unspecified site; I25.10 Atherosclerotic heart disease of native coronary artery without angina pectoris; E78.00 Pure hypercholesterolemia, unspecified; E03.9 Hypothyroidism, unspecified; Z88.8 Allergy status to other drugs, medicaments and biological substances; Z91.030 Bee allergy status
CPT/HCPCS: 99283

== ENCOUNTER 2020-05-04 12:39 | Emergency (ER) | payer MEDICARE, OTHER ==
[~2020-05-04] VITALS: Ht 167.6 cm; Wt 60.4 kg
--- NOTE | 2020-05-04 13:06 | PHYS DOC ---
Past History Past Medical History: A-Fib, High Cholesterol, Hip Dislocation Additional Past Medical Histor: syncope Past Surgical History: Other Additional Past Surgical Histo: masectomy Smoking: Non-smoker Alcohol Use: None Drug Use: None General Adult EDM: Chief Complaint: HYPERTENSION HPI: HPI: Patient is an 85 year old female who presents for evaluation of headache and increasing blood pressure at home. Symptoms been progressing for the past 1 to 2 days. Patient had some intermittent episodes of chest pressure as well. Blood pressure in triage was 182/80. Her blood pressure at home was 200 systolic. Patient has a longstanding history of hypertension but does not recall what medication she takes. Patient normally sees Dr. Prescott as well as Dr. Campoverde at [facility] for cardiology. Patient is not currently complaining of chest pain or shortness of air. Patient is otherwise benign- appearing. Patient has a steady gait with no focal deficits or lateralizing signs. Patient lives at home. Patient states that several days ago she had a moderate to severe headache when her blood pressure was very elevated. Review of Systems: Review of Systems: Constitutional: Denies fever or chills Eyes: Denies change in visual acuity HENT: Denies nasal congestion or sore throat Respiratory: Denies cough or shortness of breath Cardiovascular: Denies chest pain or edema GI: Denies abdominal pain, nausea, vomiting, bloody stools or diarrhea : Denies dysuria Musculoskeletal: Denies back pain or joint pain Integument: Denies rash Neurologic: recurrent moderate headache, no focal weakness or sensory changes Endocrine: Denies polyuria or polydipsia Lymphatic: Denies swollen glands Psychiatric: Denies depression or anxiety Allergies: Allergies: Allergies Coded Allergies Type Severity Reaction Last Updated Verified fluorouracil Allergy Intermediate Rash 05/04/20 Yes venom-honey bee Allergy Intermediate SYNCOPE 05/04/20 Yes Physical Exam: PE: Constitutional: Well developed, well nourished, mild acute distress, non-toxic appearance. [] HENT: Normocephalic, atraumatic, bilateral external ears normal, oropharynx moist, no oral exudates, nose normal. [] Eyes: PERRL, EOMI, conjunctiva normal, no discharge. [] Neck: Normal range of motion, no tenderness, supple. [] Cardiovascular:Heart rate regular rhythm, no murmur [] Lungs & Thorax: Bilateral breath sounds clear to auscultation [] Abdomen: Bowel sounds normal, soft, no tenderness, no masses, no pulsatile m asses. [] Skin: Warm, dry, no erythema, no rash. [] Back: No tenderness. [] Extremities: No tenderness, no cyanosis, ROM intact, no edema. [] Neurologic: Alert and oriented X 3, normal motor function, normal sensory function, no focal deficits noted, GCS 15, NIH 0. [] Psychologic: Affect normal, judgement normal, mood normal. [] Current Patient Data: Labs: Laboratory Tests Test 05/04/20 13:17 White Blood Count 4.1 x10^3/uL Red Blood Count 4.45 x10^6/uL Hemoglobin 13.3 g/dL Hematocrit 40.8 % Mean Corpuscular Volume 92 fL Mean Corpuscular Hemoglobin 30 pg Mean Corpuscular Hemoglobin Concent 33 g/dL Red Cell Distribution Width 13.6 % Platelet Count 193 x10^3/uL Neutrophils (%) (Auto) 51 % Lymphocytes (%) (Auto) 36 % Monocytes (%) (Auto) 10 % Eosinophils (%) (Auto) 2 % Basophils (%) (Auto) 1 % Neutrophils # (Auto) 2.1 x10^3uL Lymphocytes # (Auto) 1.5 x10^3/uL Monocytes # (Auto) 0.4 x10^3/uL Eosinophils # (Auto) 0.1 x10^3/uL Basophils # (Auto) 0.0 x10^3/uL Sodium Level 142 mmol/L Potassium Level 4.3 mmol/L Chloride Level 107 mmol/L Carbon Dioxide Level 25 mmol/L Anion Gap 10 Blood Urea Nitrogen 16 mg/dL Creatinine 1.1 mg/dL Estimated GFR (Cockcroft-Gault) 47.1 BUN/Creatinine Ratio 15 Glucose Level 95 mg/dL Calcium Level 9.7 mg/dL Total Bilirubin 0.4 mg/dL Aspartate Amino Transf (AST/SGOT) 26 U/L Alanine Aminotransferase (ALT/SGPT) 31 U/L Alkaline Phosphatase 59 U/L Troponin I Quantitative < 0.017 ng/mL Total Protein 7.0 g/dL Albumin 3.6 g/dL Albumin/Globulin Ratio 1.1 Vital Signs: Vital Signs Date Time Temp Pulse Resp B/P (MAP) Pulse Ox O2 Delivery O2 Flow Rate FiO2 10/22/20 12:55 97.4 91 18 182/80 (114 97 Room Air EKG: EKG: EKG is normal sinus rhythm, rate 73, otherwise unremarkable EKG, not STEMI read at 1303 [] Radiology/Procedures: Radiology/Procedures: [][address] [address] IMAGING REPORT Signed PATIENT: CARROLL APODACA AACCOUNT: [id number] : 1935 LOCATION: ER AGE: 85 SEX: F EXAM STATUS: REG ER ORD. PHYSICIAN: NAM JIMENEZ DO REASON: chest pressure, HTN PROCEDURE: PORTABLE CHEST 1V PORTABLE CHEST 1V History: Chest pressure, hypertension Comparison: 08/21/2017 Findings: Single view of the chest is submitted. There are again left axillary clips. There is atherosclerotic calcification near aortic arch. There is no new lobar infiltrate, pleural fluid, or pneumothorax. There is emphysema. There has been vertebroplasty at T12 as seen previously. Lumbar hardware is not fully included. Impression: 1. No acute radiographic abnormality is identified. There is emphysema. Electronically signed by: Jose Abdul MD (05/04/2020 1:34 PM) [id number] DICTATED AND SIGNED BY: JOSE ABDUL MD DATE: 05/04/20 1338 CC: NAM JIMENEZ DO; MANJU PRESCOTT MD ~ Impressions: [address] [address] IMAGING REPORT Signed PATIENT: CARROLL APODACA AACCOUNT: [id number] : 1935 LOCATION: ER AGE: 85 SEX: F EXAM STATUS: REG ER ORD. PHYSICIAN: NAM JIMENEZ DO REASON: DOAN, HTN PROCEDURE: CT HEAD WO CONTRAST CT HEAD INDICATION: Hypertension, headache COMPARISON: 03/10/2020. Exposure: One or more of the following individualized dose reduction techniques were utilized for this examination: 1. Automated exposure control 2. Adjustment of the mA and/or kV according to patient size 3. Use of iterative reconstruction technique TECHNIQUE: 5 mm contiguous axial images were obtained from the skull base to the vertex in both bone and soft tissue algorithm. FINDINGS: Mild bilateral periventricular white matter hypodensities likely chronic ischemic disease. No evidence of acute intracranial hemorrhage. No extra-axial fluid collections. No mass effect or midline shift. Ventricular size is appropriate. Basal cisterns are patent. No fractures identified.Adams-white differentiation is preserved.Globes and orbits are within normal limits. Paranasal sinuses and mastoid air cells are clear. IMPRESSION: No acute intracranial findings. Electronically signed by: Jon Coburn MD (05/04/2020 1:40 PM) [id number] DICTATED AND SIGNED BY: JON COBURN MD DATE: 05/04/20 1340 CC: NAM JIMENEZ DO; MANJU PRESCOTT MD ~ Heart Score: HEART Score for Chest Pain: HEART Score for Chest Pain Response (Comments) Value History Slighlty/Non-Suspicious 0 ECG Normal 0 Age > 65 2 Risk Factors 1 or 2 Risk Factors 1 Troponin < Normal Limit 0 Total 3 Risk Factors: Risk Factors: DM, Current or recent (<one month) smoker, HTN, HLP, family history of CAD, obesity. Risk Scores: Score 0 - 3: 2.5% MACE over next 6 weeks - Discharge Home Score 4 - 6: 20.3% MACE over next 6 weeks - Admit for Clinical Observation Score 7 - 10: 72.7% MACE over next 6 weeks - Early Invasive Strategies Course & Med Decision Making: Course & Med Decision Making Pertinent Labs and Imaging studies reviewed. (See chart for details) [] Dragon Disclaimer: Dragon Disclaimer: This electronic medical record was generated, in whole or in part, using a voice recognition dictation system. 1400 stable, patient's blood pressure now 135/71 and she was not given any blood pressure medication. Her blood pressure about an hour ago was 162/76. Patient does not currently have a headache. Patient is medically cleared and stable. She is to call and see your doctor right away in follow-up. There is no evidence of a stroke clinically. CT scan head did not show evidence of bleed or stroke Departure Departure: Impression: Primary Impression: Elevated blood pressure reading Additional Impressions: Headache Qualified Codes: R51.9 - Headache, unspecified Chest pressure Disposition: 01 DC HOME SELF CARE/HOMELESS Condition: STABLE Referrals: MANJU PRESCOTT MD (PCP) Patient Instructions: Headache, FAQs, Hypertension Additional Instructions: Take your home blood pressure medication as directed, call and see your doctor right away in follow-up, your ER work-up including CT scan head was unremarkable, keep a log of your home blood pressures NAM JIMENEZ DO May 04, 2020 13:06
[2020-05-04 13:34] LABS: BASO % 1 % (0-3); EOS # 0.1 x10^3/uL (0.0-0.7); EOS % 2 % (0-3); HEMATOCRIT 40.8 % (36.0-47.0); HEMOGLOBIN 13.3 g/dL (12.0-15.5); LYMPH # 1.5 x10^3/uL (1.0-4.8); LYMPH % 36 % (24-48); MEAN CORPUSCULAR HEMOGLOBIN 30 pg (25-35); MEAN CORPUSCULAR HGB CONC 33 g/dL (31-37); MEAN CORPUSCULAR VOLUME 92 fL (79-100); MONO # 0.4 x10^3/uL (0.0-1.1); MONO % 10 % (0-9); NEUT # 2.1 x10^3uL (1.8-7.7); NEUT % 51 % (31-73); PLATELET COUNT 193 x10^3/uL (140-400); RED BLOOD COUNT 4.45 x10^6/uL (3.50-5.40); RED CELL DISTRIBUTION WIDTH 13.6 % (11.5-14.5); WHITE BLOOD COUNT 4.1 x10^3/uL (4.0-11.0)
--- NOTE | 2020-05-04 13:36 | RAD ---
PORTABLE CHEST 1V History: Chest pressure, hypertension Comparison: 08/21/2017 Findings: Single view of the chest is submitted. There are again left axillary clips. There is atherosclerotic calcification near aortic arch. There is no new lobar infiltrate, pleural fluid, or pneumothorax. There is emphysema. There has been vertebroplasty at T12 as seen previously. Lumbar hardware is not fully included. Impression: 1. No acute radiographic abnormality is identified. There is emphysema. Electronically signed by: Franck Corbin MD (05/04/2020 1:34 PM) [id number]
--- NOTE | 2020-05-04 13:43 | RAD ---
CT HEAD INDICATION: Hypertension, headache COMPARISON: 03/10/2020. Exposure: One or more of the following individualized dose reduction techniques were utilized for this examination: 1. Automated exposure control 2. Adjustment of the mA and/or kV according to patient size 3. Use of iterative reconstruction technique TECHNIQUE: 5 mm contiguous axial images were obtained from the skull base to the vertex in both bone and soft tissue algorithm. FINDINGS: Mild bilateral periventricular white matter hypodensities likely chronic ischemic disease. No evidence of acute intracranial hemorrhage. No extra-axial fluid collections. No mass effect or midline shift. Ventricular size is appropriate. Basal cisterns are patent. No fractures identified.Adams-white differentiation is preserved.Globes and orbits are within normal limits. Paranasal sinuses and mastoid air cells are clear. IMPRESSION: No acute intracranial findings. Electronically signed by: Jon Coburn MD (05/04/2020 1:40 PM) [id number]
[2020-05-04 13:45] LABS: CALCIUM 9.7 mg/dL (8.5-10.1); CREATININE 1.1 mg/dL (0.6-1.0); GFR 47.1; POTASSIUM 4.3 mmol/L (3.5-5.1)
[2020-05-04 13:51] LABS: ALBUMIN 3.6 g/dL (3.4-5.0); ALBUMIN/GLOBULIN RATIO 1.1 (1.0-1.7); TOTAL BILIRUBIN 0.4 mg/dL (0.2-1.0)
[2020-05-04 14:16] VITALS: BP 135/71
--- NOTE | 2020-05-04 17:28 | EKG ---
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
== END 2020-05-04 14:21 | disposition home or self-care (01) ==
LOC: ER 12:39
DX: R03.0 Elevated blood-pressure reading, without diagnosis of hypertension (principal); R51.9 Headache, unspecified; R07.89 Other chest pain; I10 Essential (primary) hypertension; I48.20 Chronic atrial fibrillation, unspecified; E78.00 Pure hypercholesterolemia, unspecified; Z98.890 Other specified postprocedural states; Z90.89 Acquired absence of other organs; Z88.8 Allergy status to other drugs, medicaments and biological substances; Z91.030 Bee allergy status
CPT/HCPCS: 36415; 70450; 71045; 80053; 84484; 85025; 93005; 99285

== ENCOUNTER → 2020-05-16 | Outpatient (CLI) | payer MEDICARE, OTHER ==
[2020-05-04 14:16] VITALS: BP 135/71
--- NOTE | 2020-05-16 11:39 | RAD ---
EXAM: Right breast digital screening mammogram. HISTORY: 85-year-old female with a history of left breast cancer, status post left mastectomy, presents for annual mammography of the right breast. TECHNIQUE: Full-field digital craniocaudal and mediolateral oblique images of the right breast are obtained for evaluation. Computer aided detection was applied. COMPARISON: 12/14/2018 and 04/17/2018 BREAST PARENCHYMAL DENSITY: Level D - Extremely dense. FINDINGS: There is no new suspicious mass, microcalcification or region of architectural distortion. There are stable areas of nodularity asymmetry within the right breast. There are multiple benign calcifications. There is a biopsy clip at the site of prior clustered microcystic calcifications within the central breast. IMPRESSION: BI-RADS Category 2: Benign finding(s). RECOMMENDATION: Annual mammography is recommended. If your mammogram demonstrates that you have dense breast tissue, which could hide abnormalities, and if you have other risk factors for breast cancer that have been identified, you might benefit from supplemental screening tests that may be suggested by your ordering physician. Dense breast tissue, in and of itself, is a relatively common condition. This information is not provided to cause undue concern, but rather to raise your awareness and to promote discussion with your physician regarding the presence of other risk factors, in addition to dense breast tissue. A report of your mammography results will be sent to you and your physician. You should contact your physician if you have any questions or concerns regarding this report. Mammography is a sensitive method for finding small breast cancers, but it does not detect them all and is not a substitute for careful clinical examination. A negative mammogram does not negate a clinically suspicious finding and should not result in delay in biopsying a clinically suspicious abnormality. PQRS compliance statement - Patient information was entered into a reminder system with a target due date for the next mammogram. "Our facility is accredited by the [employer] Mammography [employer]." Electronically signed by: Heena Duff MD (05/16/2020 11:35 AM) [id number]
--- NOTE | 2020-05-16 12:06 | RAD ---
EXAM: DUAL ENERGY X-RAY ABSORPTIOMETRY (DEXA). HISTORY: Postmenopausal screening. FINDINGS: The lowest measured T-score is -2.2 in the right hip, based on a bone mineral density of 0.690 g/cm^2. Refer to the worksheets for full detail. There has been a 9.8 percent decrease in density of the right hip compared to a study dated 06/03/2006. IMPRESSION: 1. Low bone mass. Bone mineral density yields a T-score between -1.0 and -2.5. Fracture risk is increased. 2. FRAX report: Not available. METHODOLOGY: Dual energy x-ray absorptiometry was performed to measure bone mineral density. The following analysis is based on the 2019 Official Positions of the International Society for Clinical Densitometry: Measurements of the hips and the average of L1-L4 are preferred. When the spine and/or hip cannot be feasibly measured or interpreted, or in the setting of hyperparathyroidism, distal radial bone mineral density may be measured. The lumbar spine T-score is based on the average bone mineral density of L1-L4. In the setting of artifact or anatomic abnormality, some lumbar levels may be excluded, and the remaining levels used for calculation. A single lumbar level is not used for diagnosis, and if only a single level is available for assessment, another anatomic site will be used to assign a diagnosis. The hip T-score is based on the bone mineral density measurement of the femoral neck or total proximal femur of either side, whichever is lowest. Bilateral mean values are not used for diagnosis. The forearm T-score is derived from 33% of the distal radius of the nondominant forearm. Electronically signed by: Heena Duff MD (05/16/2020 12:03 PM) [id number]
--- NOTE | 2020-05-16 12:19 | RAD ---
EXAM: DUAL ENERGY X-RAY ABSORPTIOMETRY (DEXA). HISTORY: Postmenopausal screening. FINDINGS: The lowest measured T-score is -3.0 in the right forearm, based on a bone mineral density of 0.269 g/cm^2. Refer to the worksheets for full detail. No comparison examinations are available. IMPRESSION: 1. Osteoporosis. Bone mineral density yields a T-score of -2.5 or less. Fracture risk is high. 2. FRAX report: Not available. METHODOLOGY: Dual energy x-ray absorptiometry was performed to measure bone mineral density. The following analysis is based on the 2019 Official Positions of the International Society for Clinical Densitometry: Measurements of the hips and the average of L1-L4 are preferred. When the spine and/or hip cannot be feasibly measured or interpreted, or in the setting of hyperparathyroidism, distal radial bone mineral density may be measured. The lumbar spine T-score is based on the average bone mineral density of L1-L4. In the setting of artifact or anatomic abnormality, some lumbar levels may be excluded, and the remaining levels used for calculation. A single lumbar level is not used for diagnosis, and if only a single level is available for assessment, another anatomic site will be used to assign a diagnosis. The hip T-score is based on the bone mineral density measurement of the femoral neck or total proximal femur of either side, whichever is lowest. Bilateral mean values are not used for diagnosis. The forearm T-score is derived from 33% of the distal radius of the nondominant forearm. Electronically signed by: Heena Duff MD (05/16/2020 12:16 PM) [id number]
== END ==
LOC: MAMMO 10:35
PROVIDERS: ATTEND Obstetrics & Gynecology
DX: Z12.31 Encounter for screening mammogram for malignant neoplasm of breast (principal); N64.89 Other specified disorders of breast; M81.0 Age-related osteoporosis without current pathological fracture; M89.9 Disorder of bone, unspecified
CPT/HCPCS: 77067; 77080; 77081

== ENCOUNTER 2020-05-19 09:32 | Emergency (ER) | payer MEDICARE, OTHER ==
[~2020-05-19] VITALS: Ht 167.6 cm; Wt 58.6 kg
[2020-05-19] MEDS ORDERED: IV NORMAL SALINE 500ML 500 ML IV ONE (10:15)
--- NOTE | 2020-05-19 10:27 | PHYS DOC ---
Past History Past Medical History: A-Fib, Hypertension Additional Past Medical Histor: syncope Past Surgical History: Other Additional Past Surgical Histo: masectomy Smoking: Non-smoker Alcohol Use: None Drug Use: None General Adult EDM: Chief Complaint: HEADACHE HPI: HPI: 85-year-old female presents with headache. She has a pressure sensation in the front of her head that is mild in intensity. It has been persistent for more than 1 day. Patient states that she has not slept hardly at all the last 2 nights. She just tosses and turns. She was further concerned when she woke up this morning and both of her hands were "shaky". She does not normally have a tremor. She decided to come in for evaluation. She took one half of an " oxycodone" prior to arrival for her headache. She denies fever or chills. She denies any falls or trauma. She has no other complaints at this time. Review of Systems: Review of Systems: Constitutional: Denies fever or chills. Insomnia Eyes: Denies change in visual acuity HENT: Denies nasal congestion or sore throat Respiratory: Denies cough or shortness of breath Cardiovascular: Denies chest pain or edema GI: Denies abdominal pain, nausea, vomiting, bloody stools or diarrhea : Denies dysuria Musculoskeletal: Denies back pain or joint pain Integument: Denies rash Neurologic: Headache. Bilateral hand tremor. Denies focal weakness or sensory changes Endocrine: Denies polyuria or polydipsia Lymphatic: Denies swollen glands Psychiatric: Denies depression or anxiety Current Medications: Current Meds: Current Medications Medications (Trade) Dose Ordered Sig/James Start Time Stop Time Status Last Admin Dose Admin Sodium Chloride 500 ml @ 0 mls/hr 1X ONCE 05/19/20 10:15 05/19/20 10:16 DC Allergies: Allergies: Allergies Coded Allergies Type Severity Reaction Last Updated Verified fluorouracil Allergy Intermediate Rash 05/19/20 Yes venom-honey bee Allergy Intermediate SYNCOPE 05/19/20 Yes Physical Exam: PE: Constitutional: Well developed, well nourished, no acute distress, non-toxic appearance. [] HENT: Normocephalic, atraumatic, bilateral external ears normal, oropharynx moist, no oral exudates, nose normal. [] Eyes: PERRLA, EOMI, conjunctiva normal, no discharge. Constricted but reactive pupils bilaterally. [] Neck: Normal range of motion, no tenderness, supple, no stridor. [] Cardiovascular: Heart rate regular rhythm, no murmur [] Lungs & Thorax: Bilateral breath sounds clear to auscultation [] Abdomen: Bowel sounds normal, soft, no tenderness, no masses, no pulsatile masses. [] Skin: Warm, dry, no erythema, no rash. [] Back: No tenderness, no CVA tenderness. [] Extremities: No tenderness, no cyanosis, no clubbing, ROM intact, no edema. [] Neurologic: Fine tremor in bilateral hands. Alert and oriented X 3, normal motor function, normal sensory function, no focal deficits noted. [] Psychologic: Affect normal, judgement normal, mood normal. [] Current Patient Data: Labs: Laboratory Tests Test 05/19/20 09:57 Glucose (Fingerstick) 92 mg/dL (70-99) Vital Signs: Vital Signs Date Time Temp Pulse Resp B/P (MAP) Pulse Ox O2 Delivery O2 Flow Rate FiO2 05/19/20 09:32 98.0 83 16 133/74 (93) 94 Room Air EKG: EKG: Sinus rhythm, rate 71, normal axis, no ST elevations or depressions. [] Radiology/Procedures: Radiology/Procedures: [] Heart Score: Risk Factors: Risk Factors: DM, Current or recent (<one month) smoker, HTN, HLP, family history of CAD, obesity. Risk Scores: Score 0 - 3: 2.5% MACE over next 6 weeks - Discharge Home Score 4 - 6: 20.3% MACE over next 6 weeks - Admit for Clinical Observation Score 7 - 10: 72.7% MACE over next 6 weeks - Early Invasive Strategies Course & Med Decision Making: Course & Med Decision Making Pertinent Labs and Imaging studies reviewed. (See chart for details) The patient's labs are unremarkable except for creatinine 1.5. We have given her fluids, Benadryl and Reglan for her headache. She is feeling better and ready to go home. She is stable for discharge at this time. [] Dragon Disclaimer: Dragon Disclaimer: This electronic medical record was generated, in whole or in part, using a voice recognition dictation system. Departure Departure: Impression: Primary Impression: Headache Qualified Codes: R51.9 - Headache, unspecified Referrals: MANJU PRESCOTT MD (PCP) Patient Instructions: General Headache Without Cause, [id number] ALEXEY SORENSEN DO May 19, 2020 10:27
[2020-05-19] MEDS ORDERED: METOCLOPRAMIDE HCL 10 MG/2 ML VIAL. IVP ONE (10:30)
[2020-05-19] MEDS ORDERED: diphenhydrAMINE 50 MG/ML VIAL IVP ONE (10:30)
[2020-05-19 10:55] LABS: BASO % 1 % (0-3); EOS % 1 % (0-3); HEMATOCRIT 39.1 % (36.0-47.0); HEMOGLOBIN 12.6 g/dL (12.0-15.5); LYMPH % 22 % (24-48); MEAN CORPUSCULAR HEMOGLOBIN 30 pg (25-35); MEAN CORPUSCULAR HGB CONC 32 g/dL (31-37); MEAN CORPUSCULAR VOLUME 92 fL (79-100); MONO # 0.5 x10^3/uL (0.0-1.1); MONO % 11 % (0-9); NEUT % 66 % (31-73); PLATELET COUNT 198 x10^3/uL (140-400); RED BLOOD COUNT 4.23 x10^6/uL (3.50-5.40); RED CELL DISTRIBUTION WIDTH 13.7 % (11.5-14.5); WHITE BLOOD COUNT 4.6 x10^3/uL (4.0-11.0)
[2020-05-19 11:09] LABS: CALCIUM 9.8 mg/dL (8.5-10.1); CREATININE 1.5 mg/dL (0.6-1.0); GFR 32.9; POTASSIUM 4.7 mmol/L (3.5-5.1)
[2020-05-19 11:15] LABS: ALBUMIN 3.6 g/dL (3.4-5.0); ALBUMIN/GLOBULIN RATIO 1.1 (1.0-1.7); TOTAL BILIRUBIN 0.3 mg/dL (0.2-1.0); TOTAL PROTEIN 6.9 g/dL (6.4-8.2)
--- NOTE | 2020-05-19 11:48 | EKG ---
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
[2020-05-19 12:50] VITALS: BP 139/63
[2020-05-19 13:07] LABS: BACTERIA,URINE 0 /HPF (0-FEW); BILIRUBIN,URINE NEG (NEG); CLARITY,URINE CLEAR; COLOR,URINE YELLOW; GLUCOSE,URINE NEG (NEG); NITRITE,URINE NEG (NEG); RBC,URINE OCC /HPF (0-2); SQUAMOUS EPITHELIAL CELL,UR MOD /LPF; WBC,URINE OCC /HPF (0-4)
== END 2020-05-19 12:58 | disposition home or self-care (01) ==
LOC: ER 09:32
DX: R51.9 Headache, unspecified (principal); R20.2 Paresthesia of skin; I48.20 Chronic atrial fibrillation, unspecified; I10 Essential (primary) hypertension; Z98.890 Other specified postprocedural states; Z88.8 Allergy status to other drugs, medicaments and biological substances; Z91.038 Other insect allergy status
CPT/HCPCS: 36415; 80053; 81001; 82947; 85025; 93005; 96361; 96374; 96375; 99284; J1200; J2765; J7040; 96376

== ENCOUNTER 2020-09-24 19:10 | Inpatient (IN) | payer MEDICARE, OTHER ==
[~2020-09-24] VITALS: Ht 167.6 cm; Wt 61.0 kg
[~2020-09-24 19:10] MED LIST changes: -LISI-338 PO; +LISI-517 PO; +LISI10TA16 PO; -LISI10TA2 PO; +NAPR-699 PO; -NAPR250T6 PO; +VITA-47 PO; -VITA-54 PO
--- NOTE | 2020-09-24 19:24 | PHYS DOC ---
Past History Past Medical History: A-Fib, Hypertension Additional Past Medical Histor: syncope (THOMAS PANDEY FLUSH TESTER) Past Surgical History: Other Additional Past Surgical Histo: masectomy (THOMAS PANDEY FLUSH TESTER) Smoking: Non-smoker Alcohol Use: None Drug Use: None (THOMAS PANDEY FLUSH TESTER) Adult General HPI HPI Patient is a 85 year old female who presents with computer checking her email messages when she suddenly got a hot flash and then began to feel nauseated and then felt like she was going to pass out. She states it at this time she sat down on the floor and called the ambulance. Patient states she now feels fine. She denies having a headache, passing out, vomiting, diarrhea, fever, cough, chest pain, shortness of air, palpitations, numbness or tingling, focal wea kness, recent fall. She states that she has no symptoms at this time. She denies any pain. Patient does have history of A. fib for which she takes Eliquis, hypothyroidism, high cholesterol, syncope, hypertension, mastectomy. (THOMAS PANDEY FLUSH TESTER) Review of Systems Review of Systems Constitutional: Denies fever or chills [] Eyes: Denies change in visual acuity, redness, or eye pain [] HENT: Denies nasal congestion or sore throat [] Respiratory: Denies cough or shortness of breath [] Cardiovascular: No additional information not addressed in HPI [] GI: Denies abdominal pain. + nausea, denies vomiting, bloody stools or diarrhea [] : Denies dysuria or hematuria [] Musculoskeletal: Denies back pain or joint pain [] Integument: Denies rash or skin lesions. + Hot flash [] Neurologic: Denies headache, focal weakness or sensory changes. + Lightheadedness [] Endocrine: Denies polyuria or polydipsia [] All other systems were reviewed and found to be within normal limits, except as documented in this note. (THOMAS PANDEY FLUSH TESTER) Allergies Allergies Allergies Coded Allergies Type Severity Reaction Last Updated Verified fluorouracil Allergy Intermediate Rash 05/19/20 Yes venom-honey bee Allergy Intermediate SYNCOPE 05/19/20 Yes (THOMAS PANDEY FLUSH TESTER) Physical Exam Physical Exam Constitutional: Well developed, well nourished, no acute distress, non-toxic a ppearance. [] HENT: Normocephalic, atraumatic, bilateral external ears normal, oropharynx moist, no oral exudates, nose normal. [] Eyes: PERRLA, EOMI, conjunctiva normal, no discharge. [] Neck: Normal range of motion, no tenderness, supple, no stridor. [] Cardiovascular:Heart rate regular rhythm, no murmur [] Lungs & Thorax: Bilateral breath sounds clear to auscultation [] Abdomen: Bowel sounds normal, soft, no tenderness, no masses, no pulsatile masses. [] Skin: Warm, dry, no erythema, no rash. [] Back: No tenderness, no CVA tenderness. [] Extremities: No tenderness, no cyanosis, no clubbing, ROM intact, no edema. [] Neurologic: Alert and oriented X 3, normal motor function, normal sensory function, no focal deficits noted. [] Psychologic: Affect normal, judgement normal, mood normal. Normal physical exam [] (THOMAS PANDEY APRN) EKG EKG [address] Evangelista as Sinus Rhythm and no STEMI (THOMAS PANDEY APRN) Radiology/Procedures Radiology/Procedures [] Impressions: [place] [address] IMAGING REPORT Signed PATIENT: CARROLL APODACA AACCOUNT: [id number] : 1935 LOCATION: ER AGE: 85 SEX: F EXAM STATUS: REG ER ORD. PHYSICIAN: THOMAS PANDEY APRN REASON: NEAR SYNCOPE PROCEDURE: CT HEAD WO CONTRAST CT head without contrast 09/24/2020. Reason for exam: Near syncope. Noncontrast images were performed. Exposure: One or more of the following individualized dose reduction techniques were utilized for this examination: 1. Automated exposure control 2. Adjustment of the mA and/or kV according to patient size 3. Use of iterative reconstruction technique. Comparison is made with prior study of 05/04/2020. FINDINGS: There is no apparent intracranial mass, hemorrhage or abnormal extra- axial fluid collection. No new area of abnormal density is seen in the brain. The ventricles and basilar cisterns are normally positioned. The mastoid air cells are clear. There is some opacification of the left maxillary sinus. IMPRESSION: No acute abnormality in the brain. Left maxillary sinus opacification. Electronically signed by: Kirit Martinez Jr., MD (09/24/2020 8:05 PM) [facility] DICTATED AND SIGNED BY: KIRIT MARTINEZ Jr, MD DATE: 09/24/202002 CC: THOMAS PANDEY APRN; MANJU PRESCOTT MD ~MTH0 [address] [address] IMAGING REPORT Signed PATIENT: CARROLL APODACA AACCOUNT: [id number] : 1935 LOCATION: ER AGE: 85 SEX: F EXAM STATUS: REG ER ORD. PHYSICIAN: THOMAS PANDEY APRN REASON: NEAR SYNCOPE PROCEDURE: PORTABLE CHEST 1V Chest AP portable 09/24/2020. Reason for exam: Near syncope. Comparison is made with a study of 05/04/2020. No new infiltrate or effusion is seen. The heart may be mildly enlarged. Pulmonary vascularity is not congested. IMPRESSION: Borderline cardiomegaly. No acute abnormality. Electronically signed by: Kirit Martinez Jr., MD (09/24/2020 8:06 PM) [facility] DICTATED AND SIGNED BY: KIRIT MARTINEZ Jr, MD DATE: 09/24/202004 CC: THOMAS PANDEY APRN; MANJU PRESCOTT MD ~MTH0 0 (THOMAS PANDEY APRN) Heart Score C/O Chest Pain: No HEART Score for Chest Pain: HEART Score for Chest Pain Response (Comments) Value History Slighlty/Non-Suspicious 0 ECG Nonspecific Repolarizatio 1 Age > 65 2 Risk Factors 1 or 2 Risk Factors 1 Troponin < Normal Limit 0 Total 4 Risk Factors: Risk Factors: DM, Current or recent (<one month) smoker, HTN, HLP, family history of CAD, obesity. Risk Scores: Risk Factors: DM, Current or recent (<one month) smoker, HTN, HLP, family history of CAD, obesity. (THOMAS PANDEY APRN) Course & Med Decision Making Course & Med Decision Making Pertinent Labs and Imaging studies reviewed. (See chart for details) See HPI. Alert and oriented x4. Ambulatory with a steady gait. Patient was able to undress herself in the room. She is moving all extremities equally with equal strength. She speaks in full clear sentences. She is slightly hard of hearing. Lungs are clear to auscultation all lobes. There is no extremity edema. Skin is pink warm and dry. Blood work is unremarkable except her BUN is bumped to 30. Troponin is normal. EKG showed a sinus rhythm. CT of the head and chest x-ray are normal. Spoke to Dr. Rodriguez for admission and he states to start her on normal saline at 75 an hour and repeat a hemoglobin and hematocrit in the morning. He also states to hold off on the Eliquis. [] (THOMAS PANDEY APRN) Dragon Disclaimer Dragon Disclaimer This electronic medical record was generated, in whole or in part, using a voice recognition dictation system. (THOMAS PANDEY APRN) NIH Stroke Scale: NIH Stroke Scale Response (Comments) Value Level of Consciousness: 0 Alert/Responsive 0 LOC Questions: 0 Answers both correctly 0 LOC Commands: 0 Performs both tasks 0 Best Gaze: 0 Normal 0 Visual: 0 No visual loss 0 Facial Palsy: 0 Normal, symmetrical 0 Motor - Left Arm 0 No drift 0 Motor - Right Arm 0 No drift 0 Motor - Left Leg 0 No drift 0 Motor: Right Leg 0 No drift 0 Limb Ataxia: 0 Absent 0 Sensory: 0 No loss 0 Best Language: 0 Normal 0 Dysathria: 0 Normal 0 Extinction and Inattention: 0 Normal 0 Total 0 Departure Departure: Impression: Primary Impression: Near syncope Disposition: ADMITTED INPT THIS HOSP Admitting Physician: Tao Rodriguez (THOMAS PANDEY APRN) Condition: STABLE Referrals: MANJU PRESCOTT MD (PCP) Scripts Levothyroxine Sodium (LEVOTHYROXINE SODIUM) 75 Mcg Tablet 1 TAB PO DAILY for hperthyroidism, #30 TAB 5 Refills Prov: TAO RODRIGUEZ MD 09/26/20 Attending Signature Attending Signature I have participated in the care of this patient and I have reviewed and agree with all pertinent clinical information above including history, exam, and recommendations. (BAM EVANGELISTA MD) THOMAS PANDEY APRN Sep 24, 2020 19:24 BAM EVANGELISTA MD Sep 30, 2020 03:48
--- NOTE | 2020-09-24 20:07 | RAD ---
CT head without contrast 09/24/2020. Reason for exam: Near syncope. Noncontrast images were performed. Exposure: One or more of the following individualized dose reducti on techniques were utilized for this examination: 1. Automated exposure control 2. Adjustment of th e mA and/or kV according to patient size 3. Use of iterative reconstruction technique. Comparison is made with prior study of 05/04/2020. FINDINGS: There is no apparent intracranial mass, hemorrhage or abnormal extra-axial fluid collection . No new area of abnormal density is seen in the brain. The ventricles and basilar cisterns are willem lly positioned. The mastoid air cells are clear. There is some opacification of the left maxillary si nus. IMPRESSION: No acute abnormality in the brain. Left maxillary sinus opacification. Electronically signed by: Hermes Martinez Jr., MD (09/24/2020 8:05 PM) [facility]
--- NOTE | 2020-09-24 20:08 | RAD ---
Chest AP portable 09/24/2020. Reason for exam: Near syncope. Comparison is made with a study of 05/04/2020. No new infiltrate or effusion is seen. The heart may be mildly enlarged. Pulmonary vascularity is not congested. IMPRESSION: Borderline cardiomegaly. No acute abnormality. Electronically signed by: Hermes Martinez Jr., MD (09/24/2020 8:06 PM) [facility]
[2020-09-24 20:10] LABS: BASO % 1 % (0-3); EOS # 0.1 x10^3/uL (0.0-0.7); EOS % 2 % (0-3); HEMATOCRIT 40.9 % (36.0-47.0); HEMOGLOBIN 13.3 g/dL (12.0-15.5); LYMPH # 2.8 x10^3/uL (1.0-4.8); LYMPH % 48 % (24-48); MEAN CORPUSCULAR HEMOGLOBIN 30 pg (25-35); MEAN CORPUSCULAR HGB CONC 33 g/dL (31-37); MEAN CORPUSCULAR VOLUME 92 fL (79-100); MONO # 0.8 x10^3/uL (0.0-1.1); MONO % 13 % (0-9); NEUT # 2.1 x10^3uL (1.8-7.7); NEUT % 36 % (31-73); PLATELET COUNT 215 x10^3/uL (140-400); RED BLOOD COUNT 4.47 x10^6/uL (3.50-5.40); RED CELL DISTRIBUTION WIDTH 13.3 % (11.5-14.5); WHITE BLOOD COUNT 5.9 x10^3/uL (4.0-11.0)
[2020-09-24 20:16] LABS: BACTERIA,URINE FEW /HPF (0-FEW); BILIRUBIN,URINE NEG (NEG); CLARITY,URINE CLEAR; COLOR,URINE YELLOW; GLUCOSE,URINE NEG (NEG); NITRITE,URINE NEG (NEG); RBC,URINE OCC /HPF (0-2); SQUAMOUS EPITHELIAL CELL,UR FEW /LPF; UROBILINOGEN,URINE 0.2 mg/dL (0.2 mg/dL); WBC,URINE OCC /HPF (0-4)
[2020-09-24 20:18] LABS: CALCIUM 9.6 mg/dL (8.5-10.1); CREATININE 1.4 mg/dL (0.6-1.0); GFR 35.7; POTASSIUM 4.2 mmol/L (3.5-5.1)
[2020-09-24 20:31] LABS: ALBUMIN 3.6 g/dL (3.4-5.0); ALBUMIN/GLOBULIN RATIO 0.9 (1.0-1.7); TOTAL BILIRUBIN 0.2 mg/dL (0.2-1.0); TOTAL PROTEIN 7.5 g/dL (6.4-8.2)
[2020-09-24] MEDS ORDERED: IV NORMAL SALINE 1,000ML 1,000 ML IV SCH (21:00)
--- NOTE | 2020-09-24 21:30 | NUR ---
The patient, CARROLL APODACA, 85 y/o, F admitted by RODOLFO ANNE MD, was given written information regarding hospital policies, unit procedures and contact persons. Valuables were checked and vitals obtained. Pt is A&OX4 on room air with no complaints on this time. Pt is resting in bed will continue to monitor.
[2020-09-24 22:35] VITALS: BP 144/74
[2020-09-25] VITALS (8 sets, daily range): BP systolic 105–185; BP diastolic 60–96
[2020-09-25] MEDS ORDERED: LEVO125T62 PO (00:25)
[2020-09-25] MEDS ORDERED: LISI20TA18 PO (00:25)
--- NOTE | 2020-09-25 00:26 | EKG ---
[facility] ED [facility] [place] [id number] Test Date: 2020-09-24 Test Time: 19:37:52 Pat Name: CARROLL APODACA Department: Room: 111 A Gender: F Prize Fighter: : 1935 Requested By: TOHMAS PANDEY Order Number: [id number] Reading MD: Naveen Dodd MD Measurements Intervals [place] Rate: 65 P: 227 [place]: 138 QRS: 56 QRSD: 92 T: 38 QT: 422 QTc: 444 Interpretive Statements SINUS RHYTHM Electronically Signed On 09-25-2020 14:49:10 CDT by Naveen Dodd MD
[2020-09-25] MEDS ORDERED: oxyCODONE/APAP 5/325 1 TAB TABLET PO PRN (05:45)
[2020-09-25] MEDS: LEVOTHYROXINE 125 MCG TABLET PO SCH (06:00)
[2020-09-25] MEDS ORDERED: ANTI-COAG MONITOR BY PHARMACY. MC PRN (06:00)
--- NOTE | 2020-09-25 07:35 | PDOC2 ---
SHIRLEYMILEY DARYA 09/25/20 0735: CARDIAC CONSULT DATE OF CONSULT DOS: DATE: 09/25/20 TIME: 07:28 REASON FOR CONSULT Reason for Consult Near syncope H/o AFIB REFERRING PHYSICIAN Referring Physician Catie Foy APRN SOURCE Source: Chart review, Patient HPI History of Present Illness This is an 85 yo female who presented secondary to near syncope episode. Patient reports she was sitting downstairs checking her emails yesterday afternoon and suddenly got a host flash. She went upstairs and then began feeling dizzy like she was going to pass out so she laid down on the floor and called EMS. She denies any LOC. Dizziness subsequently resolved. She denies any associated chest pain, palpitations, diaphoresis, or shortness of breath. BP was elevated upon EMS arrival. Is feeling well this morning and has had no further dizziness. PAST MEDICAL HISTORY Cardiovascular: AFIB, CHF, HTN, hyperipidemia Heme/Onc: Cancer (breast ) Musculoskeletal: Osteoarthritis Renal/: Chronic renal insuff Endocrine: Hypothyroidism PAST SURGICAL HISTORY Past Surgical History: Appendectomy, Other (left mastectomy, lumbar laminectomy ) FAMILY HISTORY Family History: Hypertension SOCIAL HISTORY Smoke: No ALCOHOL: none Drugs: None Lives: Alone CURRENT MEDICATIONS Current Medications Current Medications Sodium Chloride 1,000 ml @ 75 mls/hr [id number] IV Last administered on 09/24/20at 21:01; Start 09/24/20 at 21:00; Stop 09/25/20 at 20:59 Apixaban (Eliquis) 5 mg BID PO ; Start 09/25/20 at 09:00 Dronedarone (Multaq) 400 mg BID PO ; Start 09/25/20 at 09:00 Levothyroxine Sodium (Synthroid) 125 mcg DAILY06 PO Last administered on 09/25/20at 06:00; Start 09/25/20 at 06:00 Lisinopril (Prinivil) 20 mg DAILY PO ; Start 09/25/20 at 09:00 Oxycodone/ Acetaminophen (Percocet 5/325) 0.5 tab PRN Q8HRS PRN PO PAIN; Start 09/25/20 at 05:45 Atorvastatin Calcium (Lipitor) 40 mg QHS PO ; Start 09/25/20 at 21:00 Multivitamins/ Calcium (Thera-M Plus) 1 tab DAILY PO ; Start 09/25/20 at 09:00 Fish Oil (Fish Oil) 1,000 mg QHS PO ; Start 09/25/20 at 21:00 Info (Anti-Coagulation Monitoring By Pharmacy) 1 each PRN DAILY PRN MC SEE COMMENTS; Start 09/25/20 at 06:00 Active Scripts Active Oxycodone-Acetaminophen 5-325 (Oxycodone Hcl/Acetaminophen) 1 Each Tablet 0.5 Tab PO PRN Q8HRS PRN Reported Levoxyl (Levothyroxine Sodium) 125 Mcg Tablet 1 Tab PO DAILY06 Lisinopril 20 Mg Tablet 1 Tab PO DAILY Eliquis (Apixaban) 5 Mg Tablet 5 Mg PO BID Multaq (Dronedarone Hcl) 400 Mg Tablet 1 Tab PO BID Multi Vitamin Daily (Multivitamin) 1 Each Tablet 1 Each PO HS LAST DOSE GIVEN: NOT GIVEN THIS ADMISSION NEXT DOSE DUE: DATE: TODAY TIME: PM Fish Oil ([place]-3 Fatty Acids) 300 Mg Capsule 1,000 Mg PO QHS LAST DOSE GIVEN: NOT GIVEN THIS ADMISSION NEXT DOSE DUE: DATE: TODAY TIME: AT BEDTIME Atorvastatin Calcium 40 Mg Tablet 40 Mg PO QHS for high cholesterol LAST DOSE GIVEN: NOT GIVEN THIS ADMISSION NEXT DOSE DUE: DATE: TODAY TIME: AT BEDTIME ALLERGIES Allergies: Coded Allergies: fluorouracil (Verified Allergy, Intermediate, Rash, 05/19/20) venom-honey bee (Verified Allergy, Intermediate, SYNCOPE, 05/19/20) ROS Review of Systems 14 point ROS conducted with pertinent positives noted above in HPI PHYSICAL EXAM General: Alert, Oriented X3, Cooperative, No acute distress HEENT: Atraumatic, Mucous membr. moist/pink Lungs: Clear to auscultation Heart: Regular rate Abdomen: Soft Extremities: No edema, Normal pulses Skin: No breakdown Neuro: Normal speech, Sensation intact Psych/Mental Status: Mental status NL, Mood NL MUSCULOSKELETAL: Osteoarthritic changes both hands VITALS Vital Signs Vital Signs Date Time Temp Pulse Resp B/P (MAP) Pulse Ox O2 Delivery O2 Flow Rate FiO2 09/25/20 05:49 97.6 68 18 128/69 (88) 95 Room Air LABS LABS Laboratory Tests Test 09/24/20 19:20 09/24/20 19:30 09/24/20 21:45 09/25/20 06:10 Urine Collection Type Unknown Urine Color Yellow Urine Clarity Clear Urine pH 6.0 Urine Specific [place] 1.025 Urine Protein Neg (NEG-TRACE) Urine Glucose (UA) Neg mg/dL (NEG) Urine Ketones (Stick) Neg mg/dL (NEG) Urine Blood Neg (NEG) Urine Nitrite Neg (NEG) Urine Bilirubin Neg (NEG) Urine Urobilinogen Dipstick 0.2 mg/dL (0.2 mg/dL) Urine Leukocyte Esterase Neg (NEG) Urine RBC Occ /HPF (0-2) Urine WBC Occ /HPF (0-4) Urine Squamous Epithelial Cells Few /LPF Urine Bacteria Few /HPF (0-FEW) White Blood Count 5.9 x10^3/uL (4.0-11.0) Red Blood Count 4.47 x10^6/uL (3.50-5.40) Hemoglobin 13.3 g/dL (12.0-15.5) 11.8 g/dL (12.0-15.5) Hematocrit 40.9 % (36.0-47.0) 36.4 % (36.0-47.0) Mean Corpuscular Volume 92 fL (79-100) Mean Corpuscular Hemoglobin 30 pg (25-35) Mean Corpuscular Hemoglobin Concent 33 g/dL (31-37) Red Cell Distribution Width 13.3 % (11.5-14.5) Platelet Count 215 x10^3/uL (140-400) Neutrophils (%) (Auto) 36 % (31-73) Lymphocytes (%) (Auto) 48 % (24-48) Monocytes (%) (Auto) 13 % (0-9) Eosinophils (%) (Auto) 2 % (0-3) Basophils (%) (Auto) 1 % (0-3) Neutrophils # (Auto) 2.1 x10^3uL (1.8-7.7) Lymphocytes # (Auto) 2.8 x10^3/uL (1.0-4.8) Monocytes # (Auto) 0.8 x10^3/uL (0.0-1.1) Eosinophils # (Auto) 0.1 x10^3/uL (0.0-0.7) Basophils # (Auto) 0.0 x10^3/uL (0.0-0.2) Prothrombin Time 10.8 SEC (9.4-11.4) Prothromb Time International Ratio 1.0 (0.9-1.1) Sodium Level 142 mmol/L (136-145) Potassium Level 4.2 mmol/L (3.5-5.1) Chloride Level 107 mmol/L (98-107) Carbon Dioxide Level 25 mmol/L (21-32) Anion Gap 10 (6-14) Blood Urea Nitrogen 30 mg/dL (7-20) Creatinine 1.4 mg/dL (0.6-1.0) Estimated GFR (Cockcroft-Gault) 35.7 BUN/Creatinine Ratio 21 (6-20) Glucose Level 93 mg/dL (70-99) Calcium Level 9.6 mg/dL (8.5-10.1) Total Bilirubin 0.2 mg/dL (0.2-1.0) Aspartate Amino Transf (AST/SGOT) 23 U/L (15-37) Alanine Aminotransferase (ALT/SGPT) 33 U/L (14-59) Alkaline Phosphatase 65 U/L (46-116) Troponin I Quantitative < 0.017 ng/mL (0-0.055) < 0.017 ng/mL (0-0.055) < 0.017 ng/mL (0-0.055) BP-Fyy-F-Type Natriuretic Peptide 243 pg/mL (0-449) Total Protein 7.5 g/dL (6.4-8.2) Albumin 3.6 g/dL (3.4-5.0) Albumin/Globulin Ratio 0.9 (1.0-1.7) ECHOCARDIOGRAM Echocardiogram <Conclusion> The left ventricle is normal size. The LV has mildly decreased systolic function. The Ejection Fraction is 45-50%. There is mild global hypokinesis. There is no significant aortic valvular stenosis. Doppler and Color Flow revealed no significant aortic regurgitation. Doppler and Color-flow revealed moderate mitral regurgitation. Doppler and Color Flow revealed mild tricuspid regurgitation. The PA pressure was estimated at 50 mmHg. DATE: 03/07/17152901/09/18 - 2-D + DOPPLER ECHOCARDIOGRAM 1. Left ventricular systolic function at the lower limits of normal, EF 55% 2. Moderate left atrial enlargment 3. Mild to moderate mitral insufficiency 4. Mild tricuspid insufficiency 5. Normal diastolic function with an estimated peak PAP ~ 29mm hg 6. No pericardial effusion ASSESSMENT/PLAN Assessment/Plan 1. Near syncope with h/o orthostatic syncope; no acute events on tele. CT head without acute findings. AMI ruled out. Has ILR, but battery and could not be extracted. Previous syncopal episodes not associated with an arrhythmia. 2. PAFIB; on Eliquis. Maintaining SR with Multaq. Follows with [facility], Dr. Campoverde. Echo 2018 with preserved LV systolic function 3. Accelerated hypertension; now controlled 4. Hyperlipidemia; statin 5. JAYLENE on CKD; s/p IVFs 6. Hypothyroidism; on replacement 7. MITCHELL; CPAP broken Recommendations Monitor tele Orthostatic VS TEDs TSH Outpatient echo Consider outpatient event monitor Continue Multaq for rhythm maintenance Follow up with Dr. Campoverde upon discharge MARYJANE KLEIN MD 09/25/20 1703: CARDIAC CONSULT ASSESSMENT/PLAN Assessment/Plan Patient seen and examined. Agree with above SUPERVISOR CARTOGRAPHY note. Supportive care. MILEY WATSON APRN Sep 25, 2020 07:35 MARYJANE KLEIN MD Sep 25, 2020 17:03
[2020-09-25 07:54] LABS: CALCIUM 8.7 mg/dL (8.5-10.1); CREATININE 1.1 mg/dL (0.6-1.0); GFR 47.1; POTASSIUM 4.1 mmol/L (3.5-5.1); TOTAL BILIRUBIN 0.4 mg/dL (0.2-1.0); TOTAL PROTEIN 6.1 g/dL (6.4-8.2)
[2020-09-25 08:01] LABS: BASO % 1 % (0-3); EOS # 0.1 x10^3/uL (0.0-0.7); EOS % 2 % (0-3); HEMOGLOBIN 11.8 g/dL (12.0-15.5); LYMPH # 1.5 x10^3/uL (1.0-4.8); LYMPH % 32 % (24-48); MEAN CORPUSCULAR HEMOGLOBIN 30 pg (25-35); MEAN CORPUSCULAR HGB CONC 33 g/dL (31-37); MEAN CORPUSCULAR VOLUME 92 fL (79-100); MONO # 0.5 x10^3/uL (0.0-1.1); MONO % 11 % (0-9); NEUT # 2.5 x10^3uL (1.8-7.7); NEUT % 54 % (31-73); PLATELET COUNT 178 x10^3/uL (140-400); RED BLOOD COUNT 3.96 x10^6/uL (3.50-5.40); RED CELL DISTRIBUTION WIDTH 12.8 % (11.5-14.5); WHITE BLOOD COUNT 4.6 x10^3/uL (4.0-11.0)
[2020-09-25 08:06] LABS: HEMATOCRIT 36.4 % (36.0-47.0)
[2020-09-25] MEDS: MULTIVITAMIN with MINERAL TABLET. PO SCH (08:35)
[2020-09-25] MEDS ORDERED: LISINOPRIL 20 MG TABLET PO SCH (09:00)
[2020-09-25] MEDS ORDERED: APIXABAN 5 MG TABLET. PO SCH (09:00)
[2020-09-25] MEDS: DRONEDARONE HCL 400 MG TABLET PO SCH ×2 (09:16→20:59)
--- NOTE | 2020-09-25 12:37 | CONS ---
DATE OF CONSULTATION: 09/25/2020 NEUROLOGIC CONSULTATION REFERRING PHYSICIAN: Dr. Rodriguez. REASON FOR CONSULTATION: Presyncope, rule out transient ischemic attack. HISTORY OF PRESENT ILLNESS: This is an 85-year-old right-handed female, who was admitted through Emergency Room after she presented with chief complaints of a sudden onset of dizziness and possible presyncope. According to the patient, she was sitting down stairs at her computer and checking her meals and all of a sudden she had hot flashes. She went upstairs and laid down on the floor and called EMS. The patient felt she is going to pass out, but she did not fall down. She did not have any seizure-like activities or loss of consciousness. The patient did not have any recent head injuries. She also denies chest pain, shortness of breath or palpitation, dysarthria, dysphagia, weakness or paresthesia. According to the patient, her blood pressure was elevated at arrival of EMS. Initial nonenhanced head CT scan revealed no evidence of acute intracranial process, but it showed left maxillary sinus opacification. In the Emergency Room, EKG revealed evidence of atrial fibrillation. PAST MEDICAL HISTORY: Significant for atrial fibrillations, hypertension, hyperlipidemia, congestive heart failure, osteoarthritis, breast cancer, hypothyroidism and chronic renal disease. PAST SURGICAL HISTORY: Positive for lumbosacral laminectomy, left mastectomy and appendectomy. FAMILY HISTORY: Positive for hypertension. 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 She denies smoking, alcohol drinking, or illicit drug use. CURRENT HOME MEDICATIONS: Fish oil 1000 mg at bedtime, Lipitor 40 mg at bedtime, multivitamin and calcium, lisinopril 20 mg p.o. daily, Multaq 400 mg b.i.d., levothyroxine 125 mcg daily, oxycodone p.r.n. for pain and anticoagulant medication, but unknown name at this time. ALLERGIES: FLUOROURACIL ___ HONEY BEE. REVIEW OF SYSTEMS: 10-point review of systems unremarkable as mentioned above in history of present illness. PHYSICAL EXAMINATION: GENERAL: A well-developed, well-nourished female, not in acute distress. She weighs 61 kilos. VITAL SIGNS: Blood pressure 126/72, respiratory rate 16, pulse 76 and regular, temperature 97.9, oxygen saturation 94% on room air. HEENT: Normocephalic, atraumatic, otherwise unremarkable. NECK: Supple. Negative for carotid bruit, lymphadenopathy or thyromegaly. LUNGS: Clear to A and P. CARDIOVASCULAR: Regular rhythm, normal S1, S2. There is no S3 or murmur. ABDOMEN: Soft. Bowel sounds positive. EXTREMITIES: Negative for cyanosis, clubbing or pitting edema. NEUROLOGIC: Mental status: The patient is alert and oriented x3. Speech is fluent. There is no language dysfunction. Memory, judgment, and abstracting thinking are normal. The patient denies hallucination or delusion. CRANIAL NERVES: Visual villarreal are full. The pupils are reactive to light and accommodation. The extraocular movements are intact. There is no nystagmus. There is no facial motor or sensory deficits. Hearing is intact bilaterally. The palate is elevated symmetrically. Sternocleidomastoid muscles are powerful bilaterally. The patient shrugs her shoulders symmetrically, protrudes her tongue in the midline without fasciculation or atrophy. MOTOR EXAMINATION: No focal muscle bulk was seen. The tone is normal. The strength is 5/5 throughout. SENSORY EXAMINATION: Revealed normal pinprick, light touch, vibratory and position senses. DEEP TENDON REFLEXES: Symmetric and active without pathologic responses. GAIT: The stance is steady. The patient walks without assistance. DIAGNOSTIC DATA: A head CT scan as mentioned above in history of present illness and chest x-ray revealed borderline cardiomegaly without acute process. LABORATORY DATA: CBC revealed white blood cells of 4.6 thousand, hemoglobin 11.8, hematocrit 36.4, and platelet count 178,000. Chemistry: Sodium 143, potassium 4.1, chloride 109, CO2 of 24, BUN 24, creatinine 1.1, glucose 86, calcium 8.7. Troponin level is normal. Coagulation is normal. Urinalysis, no evidence of urinary tract infections. IMPRESSION: 1. New onset of presyncope, probably due to intermittent cardiac arrhythmia -- atrial fibrillation. 2. Multiple medical problems include renal insufficiency and possible dehydration, rule out orthostatic hypotension. 3. Cardiac arrhythmia, presented with atrial fibrillations, hypertension, hyperlipidemia. RECOMMENDATION: DICTATION ENDS HERE M Jamil ALEXANDER MD DR: HUGO/arvin JOB#: [id number] / [id number]
[2020-09-25] MEDS ORDERED: ACETAMINOPHEN 325 MG TABLET PO PRN (14:15)
--- NOTE | 2020-09-25 15:14 | HP ---
ADMIT DATE: 09/24/2020 HISTORY OF PRESENT ILLNESS: The patient is an 85-year-old female patient who came to the Emergency Room with a complaint of near syncope. The patient stated that she was sitting downstairs checking her e-mails in the afternoon and suddenly she got hot flashes. She went upstairs and then began feeling dizzy, like she was going to pass out, so she laid down on the floor and called EMS. She denied any loss of consciousness and her dizziness has subsequently resolved. She denied any associated chest pain, palpitation, diaphoresis, shortness of breath. Her blood pressure was actually elevated by the time the EMS arrived and has had no further episodes since then. She was seen in the Emergency Room and has had lab work and imaging studies. Her CBC was unremarkable. Her chemistry showed that she has acute on chronic kidney injury. BUN of 30, creatinine 1.4. Her prothrombin time, INR normal. Urinalysis was essentially unremarkable. Her CT scan of the head was unremarkable and her chest x-ray was also unremarkable except borderline cardiomegaly. She was started on IV normal saline, continued on her other medication except the apixaban as well as the lisinopril. PAST MEDICAL HISTORY: Significant for atrial fibrillation, rate controlled, well anticoagulated. She is also known to have hypertension, hyperlipidemia, congestive heart failure, has had left breast cancer, primary osteoarthritis of her right knee joint, hypothyroidism and chronic renal insufficiency. PAST SURGICAL HISTORY: Significant for bilateral cataract extraction, appendectomy, left mastectomy in 1993 with breast reconstruction surgery in 1995. She took tamoxifen for 1 year. She has back surgery in the form of lumbar laminectomy. FAMILY HISTORY: She has one sister who is younger and still alive, lives near [place], [place]. Had 2 brothers, one of cancer of the lung, the other of myocardial infarction. She had 2 sisters, one of cancer of the skin that metastasized to the brain and the other one she is not sure about the cause of . Her father at age of 74 because of myocardial infarction. Mother at the age of 94. SOCIAL HISTORY: She is and lives alone. She has no children of her own. She has never smoked, does not drink alcohol or use any recreational drugs. 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 REVIEW OF SYSTEMS: As per history of present illness. ALLERGIES: She is allergic to FLUOROURACIL, VENOM, HONEY BEE. MEDICATIONS: She is currently on the following medications: She is on apixaban 5 mg twice a day, Multaq 400 mg twice a day, atorvastatin 40 mg at bedtime. She is on fish oil 1000 mg at bedtime, lisinopril 20 mg once a day, oxycodone/APAP 5/325 half a tablet every 8 hours. She is on levothyroxine sodium 125 mcg once a day, multivitamin 1 tablet once a day. PHYSICAL EXAMINATION: GENERAL: On arrival to the Emergency Room, she was somewhat pale, but no jaundice or cyanosis. No lymphadenopathy, no thyromegaly. No jugular venous distention. No limb edema. VITAL SIGNS: Her heart rate was 68, blood pressure was 163/110, temperature was 98, respiratory rate was 18 and oxygen saturation was 97% on room air. HEAD, EYES, EARS, NOSE AND THROAT: Normocephalic, atraumatic. NECK: Supple. HEART: Normal first and second heart sounds. No gallop, rub or murmur. CHEST: Shows central trachea, equal bilateral chest expansion, air entry, vesicular breath sounds. No crepitation or rhonchi. ABDOMEN: Scaphoid, soft, nontender. NEUROLOGIC: She was awake, alert, responding appropriately. All her cranial nerves intact. EXTREMITIES: She moves extremities without difficulty. LABORATORY DATA: Her lab work on arrival to the Emergency Room showed white cell count 5900, hemoglobin 13, hematocrit 40, MCV 92, and platelet count 215,000 with a manual differential showed 36% polymorphs, 48% lymphocytes and 13% monocytes. Her chemistry showed serum sodium 142, potassium 4.2, chloride 107, bicarbonate 25, anion gap of 10, BUN 30, creatinine 1.4, estimated GFR was 36 mL per minute. Her glucose was 93, calcium was 9.6. Total bilirubin, AST, ALT, alkaline phosphatase were normal. Her beta natriuretic peptide was 243. Total protein 7.5, albumin 3.6. First set of troponin was less than 0.017. Her prothrombin time and INR are normal. Urinalysis is essentially unremarkable. Her CT scan of the head showed no intracranial mass, hemorrhage or abnormal extraaxial fluid collection. No new areas of abnormal density is seen in the brain. The ventricles and basilar cisterns are normally positioned. The mastoid air cells are clear. There is some opacification of the left maxillary sinus. Her chest x-ray showed the patient has no new infiltrate or effusion is seen. The heart may be mildly enlarged. The pulmonary vasculature is not congested. ASSESSMENT AND PLAN: The patient was admitted with near syncope. Started her on IV fluids, held her apixaban as well as lisinopril. We will do 2 more sets of cardiac enzyme and consult the operator catalyst concentration and decide the further management accordingly. RODOLFO ANNE MD DR: LÁZARO/arvin JOB#: [id number] / [id number]
[2020-09-25] MEDS: LISINOPRIL 20 MG TABLET PO SCH (15:15)
--- NOTE | 2020-09-25 16:32 | PN ---
DATE: 09/25/2020 SUBJECTIVE: The patient is sitting at the edge of the bed comfortably, in no apparent distress. She just walked all the way to the bathroom and back. Denied any dizziness or lightheadedness. Denied any palpitation or vertigo. PHYSICAL EXAMINATION: GENERAL: When I examined her, she was somewhat pale, but no jaundice, cyanosis or thyromegaly. No jugular venous distention or limb edema. VITAL SIGNS: Her heart rate was 68, blood pressure was 128/69, temperature 97.6, respiratory rate was 18 and oxygen saturation was 95% on room air. HEAD, EYES, EARS, NOSE AND THROAT: Showed normocephalic, atraumatic. NECK: Supple. HEART: Normal first and second heart sounds. No gallop or murmur. CHEST: Clear to auscultation. No crepitation or rhonchi. ABDOMEN: Scaphoid, soft, nontender. NEUROLOGIC: She is grossly intact. LABORATORY DATA: Showed white cell count 4600, hemoglobin 11.8, hematocrit 36, MCV 92, and platelet count of 178,000 with normal manual differential. Her chemistry showed serum sodium 143, potassium 4.1, chloride 109, bicarbonate 24, anion gap of 10, BUN 24, creatinine 1.1, estimated GFR was 47 mL per minute. Her glucose was 86, calcium was 8.7. Total bilirubin, AST, ALT, alkaline phosphatase were normal. Her total protein 6.1, albumin 3. ASSESSMENT: Near syncope, resolved. The patient has no further episodes of dizziness or lightheadedness. Her blood pressure is stable and her BUN and creatinine has much improved. My plan is to discontinue IV fluid and could restart her blood pressure medication. She has 3 sets of cardiac enzymes that ruled out myocardial infarction. The patient has atrial fibrillation with rapid ventricular response, on Multaq and Eliquis. Accelerated hypertension, resolved; hyperlipidemia; acute on chronic kidney injury, improving; hypothyroidism, on replacement; obstructive sleep apnea, on CPAP. PLAN: To resume all her medications. We will repeat her lab work again tomorrow. We will also consult Physical and Occupational Therapy and if she remains stable, she can be discharged home tomorrow. RODOLFO ANNE MD DR: LÁZARO/arvin JOB#: [id number] / [id number]
--- NOTE | 2020-09-25 18:18 | NUR ---
Pt elequis discontinued per dr. mejia
[2020-09-25] MEDS ORDERED: OMEGA-3 FATTY ACIDS/FISH OIL 1,000 MG CAPSULE. PO SCH (21:00)
[2020-09-25] MEDS ORDERED: ATORVASTATIN CALCIUM 20 MG TABLET PO SCH (21:00)
[2020-09-26 05:11] VITALS: BP 121/63
[2020-09-26] MEDS: LEVOTHYROXINE 125 MCG TABLET PO SCH (05:36)
[2020-09-26 07:01] LABS: HEMATOCRIT 37.4 % (36.0-47.0); HEMOGLOBIN 12.1 g/dL (12.0-15.5); RED BLOOD COUNT 4.1 x10^6/uL (3.50-5.40); RED CELL DISTRIBUTION WIDTH 13.1 % (11.5-14.5); WHITE BLOOD COUNT 4.3 x10^3/uL (4.0-11.0)
[2020-09-26 07:18] LABS: ALBUMIN/GLOBULIN RATIO 0.9 (1.0-1.7); GFR 52.6; POTASSIUM 4.2 mmol/L (3.5-5.1); TOTAL BILIRUBIN 0.5 mg/dL (0.2-1.0); TOTAL PROTEIN 6.4 g/dL (6.4-8.2)
--- NOTE | 2020-09-26 07:58 | PDOC ---
CARDIO Progress Notes Date & Time Date of Service DATE: 09/26/20 TIME: 07:56 Time of Evaluation 07:56 Subjective Notes Feeling well. No dizziness, diaphoresis, chest pain, or shortness of breath. Vitals Vitals Vital Signs Date Time Temp Pulse Resp B/P (MAP) Pulse Ox O2 Delivery O2 Flow Rate FiO2 09/26/20 05:11 97.6 59 16 121/63 (82) 96 Room Air Weight Weight [ ] Input and Output I.O. Intake and Output0 09/26/20 07:00 Intake Total 1680 ml Balance 1680 ml Intake Oral 1680 ml # Voids 4 Laboratory Labs Laboratory Tests Test 09/24/20 19:20 09/24/20 19:30 09/24/20 21:45 09/25/20 06:10 Urine Collection Type Unknown Urine Color Yellow Urine Clarity Clear Urine pH 6.0 Urine Specific [place] 1.025 Urine Protein Neg (NEG-TRACE) Urine Glucose (UA) Neg mg/dL (NEG) Urine Ketones (Stick) Neg mg/dL (NEG) Urine Blood Neg (NEG) Urine Nitrite Neg (NEG) Urine Bilirubin Neg (NEG) Urine Urobilinogen Dipstick 0.2 mg/dL (0.2 mg/dL) Urine Leukocyte Esterase Neg (NEG) Urine RBC Occ /HPF (0-2) Urine WBC Occ /HPF (0-4) Urine Squamous Epithelial Cells Few /LPF Urine Bacteria Few /HPF (0-FEW) White Blood Count 5.9 x10^3/uL (4.0-11.0) 4.6 x10^3/uL (4.0-11.0) Red Blood Count 4.47 x10^6/uL (3.50-5.40) 3.96 x10^6/uL (3.50-5.40) Hemoglobin 13.3 g/dL (12.0-15.5) 11.8 g/dL (12.0-15.5) Hematocrit 40.9 % (36.0-47.0) 36.4 % (36.0-47.0) Mean Corpuscular Volume 92 fL (79-100) 92 fL (79-100) Mean Corpuscular Hemoglobin 30 pg (25-35) 30 pg (25-35) Mean Corpuscular Hemoglobin Concent 33 g/dL (31-37) 33 g/dL (31-37) Red Cell Distribution Width 13.3 % (11.5-14.5) 12.8 % (11.5-14.5) Platelet Count 215 x10^3/uL (140-400) 178 x10^3/uL (140-400) Neutrophils (%) (Auto) 36 % (31-73) 54 % (31-73) Lymphocytes (%) (Auto) 48 % (24-48) 32 % (24-48) Monocytes (%) (Auto) 13 % (0-9) 11 % (0-9) Eosinophils (%) (Auto) 2 % (0-3) 2 % (0-3) Basophils (%) (Auto) 1 % (0-3) 1 % (0-3) Neutrophils # (Auto) 2.1 x10^3uL (1.8-7.7) 2.5 x10^3uL (1.8-7.7) Lymphocytes # (Auto) 2.8 x10^3/uL (1.0-4.8) 1.5 x10^3/uL (1.0-4.8) Monocytes # (Auto) 0.8 x10^3/uL (0.0-1.1) 0.5 x10^3/uL (0.0-1.1) Eosinophils # (Auto) 0.1 x10^3/uL (0.0-0.7) 0.1 x10^3/uL (0.0-0.7) Basophils # (Auto) 0.0 x10^3/uL (0.0-0.2) 0.0 x10^3/uL (0.0-0.2) Prothrombin Time 10.8 SEC (9.4-11.4) Prothromb Time International Ratio 1.0 (0.9-1.1) Sodium Level 142 mmol/L (136-145) 143 mmol/L (136-145) Potassium Level 4.2 mmol/L (3.5-5.1) 4.1 mmol/L (3.5-5.1) Chloride Level 107 mmol/L (98-107) 109 mmol/L (98-107) Carbon Dioxide Level 25 mmol/L (21-32) 24 mmol/L (21-32) Anion Gap 10 (6-14) 10 (6-14) Blood Urea Nitrogen 30 mg/dL (7-20) 24 mg/dL (7-20) Creatinine 1.4 mg/dL (0.6-1.0) 1.1 mg/dL (0.6-1.0) Estimated GFR (Cockcroft-Gault) 35.7 47.1 BUN/Creatinine Ratio 21 (6-20) 22 (6-20) Glucose Level 93 mg/dL (70-99) 86 mg/dL (70-99) Calcium Level 9.6 mg/dL (8.5-10.1) 8.7 mg/dL (8.5-10.1) Total Bilirubin 0.2 mg/dL (0.2-1.0) 0.4 mg/dL (0.2-1.0) Aspartate Amino Transf (AST/SGOT) 23 U/L (15-37) 20 U/L (15-37) Alanine Aminotransferase (ALT/SGPT) 33 U/L (14-59) 28 U/L (14-59) Alkaline Phosphatase 65 U/L (46-116) 54 U/L (46-116) Troponin I Quantitative < 0.017 ng/mL (0-0.055) < 0.017 ng/mL (0-0.055) < 0.017 ng/mL (0-0.055) QI-Pcv-N-Type Natriuretic Peptide 243 pg/mL (0-449) Total Protein 7.5 g/dL (6.4-8.2) 6.1 g/dL (6.4-8.2) Albumin 3.6 g/dL (3.4-5.0) 3.0 g/dL (3.4-5.0) Albumin/Globulin Ratio 0.9 (1.0-1.7) 1.0 (1.0-1.7) Triglycerides Level 36 mg/dL (0-150) Cholesterol Level 115 mg/dL (0-200) LDL Cholesterol, Calculated 57 mg/dL (0-100) VLDL Cholesterol, Calculated 7 mg/dL (0-40) Non-HDL Cholesterol Calculated 64 mg/dL (0-129) HDL Cholesterol 51 mg/dL (40-60) Cholesterol/HDL Ratio 2.0 Thyroid Stimulating Hormone (TSH) 0.095 uIU/mL (0.358-3.740) Test 09/26/20 05:55 Sodium Level 145 mmol/L (136-145) Potassium Level 4.2 mmol/L (3.5-5.1) Chloride Level 110 mmol/L (98-107) Carbon Dioxide Level 26 mmol/L (21-32) Anion Gap 9 (6-14) Blood Urea Nitrogen 26 mg/dL (7-20) Creatinine 1.0 mg/dL (0.6-1.0) Estimated GFR (Cockcroft-Gault) 52.6 BUN/Creatinine Ratio 26 (6-20) Glucose Level 85 mg/dL (70-99) Calcium Level 9.0 mg/dL (8.5-10.1) Total Bilirubin 0.5 mg/dL (0.2-1.0) Aspartate Amino Transf (AST/SGOT) 22 U/L (15-37) Alanine Aminotransferase (ALT/SGPT) 27 U/L (14-59) Alkaline Phosphatase 54 U/L (46-116) Total Protein 6.4 g/dL (6.4-8.2) Albumin 3.0 g/dL (3.4-5.0) Albumin/Globulin Ratio 0.9 (1.0-1.7) Physical Exams HEENT: Neck Supple W Full Motion Chest: Symmetric Lungs: Clear to Auscultation Heart: RRR Abdomen: Soft N/T Extremities: No Edema Neurology: alert, oriented, follow commands Assessment Assessment 1. Near syncope with h/o orthostatic syncope; no acute events on tele. CT head without acute findings. AMI ruled out. Has ILR, but battery and could not be extracted. Previous syncopal episodes not associated with an arrhythmia. Orthos negative 09/25/20 2. PAFIB; on Eliquis. Maintaining SR with Multaq. Follows with Dr. Gilles VILLAVICENCIO. Echo 2018 with preserved LV systolic function 3. Accelerated hypertension; now controlled 4. Hyperlipidemia; statin 5. JAYLENE on CKD; s/p IVFs 6. Hypothyroidism; on replacement 7. MITCHELL; CPAP broken Recommendations TEDs Outpatient echo Consider outpatient event monitor, will defer to primary apple thinner Continue Multaq for rhythm maintenance Follow up with Dr. Campoverde upon discharge MILEY WATSON APRN Sep 26, 2020 07:57
[2020-09-26] MEDS: DRONEDARONE HCL 400 MG TABLET PO SCH (08:13)
[2020-09-26] MEDS: LISINOPRIL 20 MG TABLET PO SCH (08:14)
[2020-09-26] MEDS: MULTIVITAMIN with MINERAL TABLET. PO SCH (08:14)
[2020-09-26 10:05] VITALS: BP 108/57
[2020-09-26] MEDS ORDERED: LEVO75TA5 PO (14:50)
--- NOTE | 2020-09-26 15:05 | DS ---
DATE OF DISCHARGE: 09/26/2020 HOSPITAL COURSE: The patient is an 85-year-old female patient who was admitted with near-syncope with orthostatic and no acute event, questionable vasovagal. She apparently has implantable loop recorder, but battery and could not be extracted. She has also paroxysmal atrial fibrillation, now in sinus rhythm on Multaq. On admission, she did have also accelerated hypertension that has resolved and acute on chronic kidney injury that has resolved. 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 PHYSICAL EXAMINATION: GENERAL: When I saw her this afternoon, she looked well and was clearly in no apparent respiratory distress, pale, but no jaundice, cyanosis or thyromegaly. No jugular venous distension. No lower limb edema. VITAL SIGNS: Her heart rate was 78, blood pressure was 108/57, temperature 98.5, respiratory rate was 18 and oxygen saturation was 97%. HEAD, EYES, EARS, NOSE AND THROAT: Showed normocephalic, atraumatic. NECK: Supple. HEART: Showed normal first and second heart sounds. No gallop, rub or murmur. CHEST: Shows central trachea, equal bilateral chest expansion, air entry, no vesicular sounds. No crepitation or rhonchi. ABDOMEN: Scaphoid, soft, nontender. NEUROLOGIC: She was awake, alert, responding appropriately. All cranial nerves intact. EXTREMITIES: She moves extremities without difficulty. LABORATORY DATA: Her lab work showed a white cell count of 4300, hemoglobin 12, hematocrit 37, MCV 91, and platelet count of 187,000. Her chemistry showed a serum sodium of 145, potassium 4.2, chloride 110, bicarbonate 26, anion gap of 9, BUN 26, creatinine 1, estimated GFR was 52 mL per minute. Her glucose was 85, calcium was 9. Total bilirubin, AST, ALT, alkaline phosphatase were normal. Total protein was 6.4, albumin 3, serum triglycerides 36, total cholesterol 115, LDL cholesterol was 57, VLDL was 7, HDL cholesterol was 51, and the ratio of 2. Her TSH was 0.095. DISCHARGE MEDICATIONS: The patient was discharged home to continue on apixaban 5 mg twice a day, atorvastatin 40 mg at bedtime. She is on dronedarone for Multaq 400 mg twice a day; levothyroxine sodium 125 mcg, will be cut down as her TSH is almost undetectable; lisinopril 20 mg once a day; multivitamin 1 tablet once a day, and omega 3 fatty acids 1000 mg at bedtime. FINAL DISCHARGE DIAGNOSES: Near-syncope, resolved. The patient has no further episodes of dizziness or lightheadedness. Her acute kidney injury has improved. Acute myocardial infarction was ruled out; atrial fibrillation, rate controlled, well anticoagulated. Accelerated hypertension, resolved. Hyperlipidemia. Acute on chronic kidney injury, improved. Hypothyroidism. Obstructive sleep apnea, on CPAP. My plan is to cut down her Synthroid for levothyroxine to 100 mcg and the patient was advised to follow with her primary care physician and [employer]ba internship. RODOLFO ANNE MD DR: LÁZARO/arvin JOB#: [id number] / [id number]
--- NOTE | 2020-09-26 15:34 | NUR ---
NSG NOTE; DISCHARGE VERBAL AND WRITTEN DISCHARGE INSTRUCTIONS GIVEN TO PT WITH VERBAL UNDERSTANDING RX X1 GIVEN TO PT DISCHARGED TO HOME AT 1515 VIA AMB ACCOMP BY FRIEND WHO PICKED HER UP
--- NOTE | 2020-09-28 00:09 | PN ---
DATE: 09/26/2020 SUBJECTIVE: The patient denies any new medical or neurological complaints. OBJECTIVE: GENERAL: Well-developed, well-nourished female, not in acute distress. VITAL SIGNS: Blood pressure 121/63, respiratory rate is 16, pulse is 59, temperature 97.6, oxygen saturation 97% on room air. HEENT: Normocephalic, atraumatic, otherwise unremarkable. NECK: Supple. Negative for carotid bruit, lymphadenopathy or thyromegaly. LUNGS: Clear to A and P. CARDIOVASCULAR: Regular rate and rhythm, normal S1, S2. There is no S3, S4 or murmurs. ABDOMEN: Soft. Bowel sounds positive. EXTREMITIES: Negative for cyanosis, clubbing or edema. NEUROLOGICAL EXAM: Mental Status: The patient is alert and oriented x 3. Speech is fluent. There is no language dysfunction. Cranial nerves are intact. No focal motor or sensory deficit. The strength was 5/5 throughout. Sensory examination revealed normal pinprick, light touch, vibratory and position senses. Deep tendon reflexes were symmetric and active without pathology responses. Gait and coordination are normal. LABORATORY DATA: CBC revealed white blood cells of 4.3 thousand, hemoglobin 12.1, hematocrit 37.4, platelet count 187,000. Chemistry revealed sodium 145, potassium 4.2, chloride 110, CO2 of 27, BUN 26, creatinine 1, glucose 85, calcium 9. Lipid profile is normal. TSH is low at 0.095. IMPRESSION: 1. New onset of presyncope, probably due to intermittent cardiac arrhythmias -- paroxysmal atrial fibrillation. Currently, the cardiac rhythm is sinus, normal. 2. Multiple medical problems include renal insufficiency, possible dehydration, paroxysmal atrial fibrillations, hypertension and hyperlipidemia. RECOMMENDATIONS: Continue with current management initiated by Dr. Rodriguez and follow Cardiology recommendations. M Jamil ALEXANDER MD DR: HUGO/arvin JOB#: [id number] / [id number]
== END 2020-09-26 15:15 | disposition home or self-care (01) | DRG 308 ==
LOC: ER 19:10 → 1 SOUTH 21:37
PROVIDERS: ADMIT Internal Medicine; ATTEND Internal Medicine
DX: I48.0 Paroxysmal atrial fibrillation (principal); N17.0 Acute kidney failure with tubular necrosis; I13.0 Hypertensive heart and chronic kidney disease with heart failure and stage 1 through stage 4 chronic kidney disease, or unspecified chronic kidney disease; E78.5 Hyperlipidemia, unspecified; G47.33 Obstructive sleep apnea (adult) (pediatric); N18.9 Chronic kidney disease, unspecified; I50.9 Heart failure, unspecified; Z79.899 Other long term (current) drug therapy; Z82.49 Family history of ischemic heart disease and other diseases of the circulatory system; E03.9 Hypothyroidism, unspecified; E78.00 Pure hypercholesterolemia, unspecified; E86.0 Dehydration; M17.11 Unilateral primary osteoarthritis, right knee; Z85.3 Personal history of malignant neoplasm of breast; Z90.12 Acquired absence of left breast and nipple; Z98.41 Cataract extraction status, right eye; Z98.42 Cataract extraction status, left eye; Z88.8 Allergy status to other drugs, medicaments and biological substances
CPT/HCPCS: 36415; 70450; 71045; 80053; 80061; 81001; 83880; 84443; 84484; 85025; 85027; 85610; 93005; 96360; 97530; 99285-25; J7030

== ENCOUNTER 2021-01-10 02:26 | Observation (INO) | payer MEDICARE, OTHER ==
[~2021-01-10] VITALS: Ht 157.5 cm; Wt 61.6 kg
[~2021-01-10 02:26] MED LIST changes: -DRON400T PO; +DRON400T6 PO; +LEVO125T62 PO; +LEVO75TA5 PO; +LISI20TA18 PO
--- NOTE | 2021-01-10 02:39 | RAD ---
CT HEAD/BRAIN WO Date: 01/10/2021 2:33 AM Clinical Indication: Reason: DOAN, on eliquis / Spl. Instructions: / History: Comparison: 09/24/2020. Technique: 5 mm axial tomographic images were obtained of the head without contrast. These were view ed on brain and bone windows. One or more of the following dose reduction techniques were utilized: A utomated exposure control (AEC), Adjustment of mA and/or kV according to patient size, Use of iterati ve reconstruction technique such as ASiR, CT scan done according to ALARA and image gently/image guerrero ly Findings: Moderate generalized cerebral and cerebellar volume loss. Mild nonspecific periventricular hypoattenu ation, most commonly seen with chronic small vessel ischemic disease. Calcified atherosclerosis of th e bilateral cavernous and paraclinoid internal carotid arteries and intracranial vertebral arteries. No intra- or extra-axial mass or fluid collection. No acute hemorrhage. The ventricles are normal in size, shape, and morphology. The mari-white matter junction is normal. The subarachnoid cisterns are patent. The visualized paranasal sinuses are normal. The visualized portions of the orbits and globes are no rmal. The mastoid air cells are clear. The senior ui developer topogram shows no lytic lesion or fracture. Impression: No acute intracranial process. Moderate cerebral volume loss. Mild chronic small vessel ischemic disease. Electronically signed by: Franck Stewart MD (01/10/2021 2:37 AM) [facility]
--- NOTE | 2021-01-10 02:52 | PHYS DOC ---
Past History Past Medical History: A-Fib, Hypertension Additional Past Medical Histor: syncope Past Surgical History: Appendectomy, Other Additional Past Surgical Histo: masectomy Smoking: Non-smoker Alcohol Use: None Drug Use: None Adult General Chief Complaint Chief Complaint: HEADACHE HPI HPI Patient is a 85-year-old female with a past medical history significant for atrial fibrillation on Eliquis and hypertension who presents to the emergency department with a headache. States that she woke up about 2 hours ago at home with a whole head headache, 4 out of 10, dull and achy in nature. States that she lives at home alone and decided to call the ambulance because she knew she is on blood thinners and it worried her she had a headache and something happened nobody would call the ambulance for her so wanted to come in and get checked out. States since arriving in the emergency department it has gotten a little better. Denies any changes in vision, neck pain, chest pain, shortness of breath, abdominal pain, nausea, vomiting, dysuria, hematuria or blood in the stool. Denies any recent trauma, travels, illnesses or known ill contacts. Denies any numbness/weakness/tingling. Denies any issues sitting, standing or walking. Review of Systems Review of Systems Review of systems otherwise unremarkable except noted in HPI Allergies Allergies Allergies Coded Allergies Type Severity Reaction Last Updated Verified fluorouracil Allergy Intermediate Rash 05/19/20 Yes venom-honey bee Allergy Intermediate SYNCOPE 05/19/20 Yes Physical Exam Physical Exam Constitutional: Well developed, well nourished, no acute distress, non-toxic appearance. [] HENT: Normocephalic, atraumatic, bilateral external ears normal, oropharynx moist, no oral exudates, nose normal. [] Eyes: PERRLA, EOMI, conjunctiva normal, no discharge. [] Neck: Normal range of motion, no tenderness, supple, no stridor. [] Cardiovascular:Heart rate regular rhythm, no murmur [] Lungs & Thorax: Bilateral breath sounds clear to auscultation [] Abdomen: soft, no tenderness, no masses, no pulsatile masses. [] Skin: Warm, dry, no erythema, no rash. [] Extremities: No tenderness, no cyanosis, no clubbing, ROM intact, no edema. [] Neurologic: Alert and oriented X 3, normal motor function, normal sensory function, able to sit, stand and walk without issue, no focal deficits noted. [] Psychologic: Affect normal, judgement normal, mood normal. [] EKG EKG [] Radiology/Procedures Radiology/Procedures []CT HEAD/BRAIN WO Date: 01/10/2021 2:33 AM Clinical Indication: Reason: DOAN, on eliquis / Spl. Instructions: / History: Comparison: 09/24/2020. Technique: 5 mm axial tomographic images were obtained of the head without contrast. These were viewed on brain and bone windows. One or more of the following dose reduction techniques were utilized: Automated exposure control (AEC), Adjustment of mA and/or kV according to patient size, Use of iterative reconstruction technique such as ASiR, CT scan done according to ALARA and image gently/image wisely Findings: Moderate generalized cerebral and cerebellar volume loss. Mild nonspecific periventricular hypoattenuation, most commonly seen with chronic small vessel ischemic disease. Calcified atherosclerosis of the bilateral cavernous and paraclinoid internal carotid arteries and intracranial vertebral arteries. No intra- or extra-axial mass or fluid collection. No acute hemorrhage. The ventricles are normal in size, shape, and morphology. The mari-white matter junction is normal. The subarachnoid cisterns are patent. The visualized paranasal sinuses are normal. The visualized portions of the orbits and globes are normal. The mastoid air cells are clear. The stone layer topogram shows no lytic lesion or fracture. Impression: No acute intracranial process. Moderate cerebral volume loss. Mild chronic small vessel ischemic disease. Electronically signed by: Franck Stewart MD (01/10/2021 2:37 AM) [facility] Heart Score C/O Chest Pain: No Risk Factors: Risk Factors: DM, Current or recent (<one month) smoker, HTN, HLP, family history of CAD, obesity. Risk Scores: Risk Factors: DM, Current or recent (<one month) smoker, HTN, HLP, family history of CAD, obesity. Course & Med Decision Making Course & Med Decision Making Patient 85-year-old female who presents with a headache Vital signs not concerning. Physical exam noted above. EKG noted above and not concerning for STEMI. CT head not concerning. NIH of 0 Patient stated that she came to the emergency department because she lives at home alone and wanted to be checked out. States that after arriving the emergency department her headache was about half as bad as it was before. Denies any new symptoms. Gave headache cocktail. On reassessment patient stated headache was not any better but also not any worse. States she is a little tired now, but it is 4:30 in the morning. Given patient's age, A. fib on Eliquis, new onset headache, on blood thinners obtained a CTA of the head and neck. CTA of the head and neck not concerning. Laboratory analysis notable for mild hyperkalemia at 5.5 and mild JAYLENE at 1.3 over her baseline of 1. Started on IV fluid resuscitation. Discussed findings with patient and recommended admission for JAYLENE, hyperkalemia. Patient grateful, verbalized understanding agreed with plan of admission. [] Dragon Disclaimer Dragon Disclaimer This electronic medical record was generated, in whole or in part, using a voice recognition dictation system. Departure Departure: Impression: Primary Impression: Headache Additional Impressions: JAYLENE (acute kidney injury) Hyperkalemia Disposition: ADMITTED INPATIENT Admitting Physician: Pedro Luis Baez Condition: IMPROVED Referrals: MANJU PRESCOTT MD (PCP) Problem Qualifiers NAM ALLISON MD Jan 10, 2021 02:52
[2021-01-10] MEDS ORDERED: ACETAMINOPHEN 500 MG TABLET PO ONE (03:00)
[2021-01-10] MEDS ORDERED: diphenhydrAMINE HCL 25 MG CAPSULE PO ONE (03:00)
[2021-01-10] MEDS ORDERED: ONDANSETRON ODT 4 MG TAB.RAPDIS PO ONE (03:00)
--- NOTE | 2021-01-10 04:44 | EKG ---
[address] [address] Test Date: 2021-01-10 Test Time: 02:37:51 Pat Name: CARROLL APODACA Department: Room: Gender: F Clinical Marketing Manager: : 1935 Requested By: NAM ALLISON Order Number: [id number] Reading MD: Richar Borrero Measurements Intervals [place] Rate: 80 P: 90 ME: 228 QRS: 82 QRSD: 96 T: 42 QT: 400 QTc: 465 Interpretive Statements SINUS RHYTHM PROLONGED ME INTERVAL QRS(T) CONTOUR ABNORMALITY CONSISTENT WITH ANTEROSEPTAL INFARCT AGE UNDETERMINED ABNORMAL ECG Electronically Signed On 01-17-2021 12:59:35 CDT by Richar Borrero
[2021-01-10] MEDS ORDERED: IOHEXOL 350 MG/ML 100 ML VIAL. IV ONE (04:45)
[2021-01-10] MEDS ORDERED: CONTRAST GIVEN. MC PRN (05:00)
[2021-01-10 05:11] LABS: BASO % 1 % (0-3); EOS # 0.1 x10^3/uL (0.0-0.7); EOS % 1 % (0-3); HEMATOCRIT 40.7 % (36.0-47.0); HEMOGLOBIN 13.4 g/dL (12.0-15.5); LYMPH # 1.2 x10^3/uL (1.0-4.8); LYMPH % 23 % (24-48); MEAN CORPUSCULAR HEMOGLOBIN 30 pg (25-35); MEAN CORPUSCULAR HGB CONC 33 g/dL (31-37); MEAN CORPUSCULAR VOLUME 91 fL (79-100); MONO # 0.5 x10^3/uL (0.0-1.1); MONO % 10 % (0-9); NEUT # 3.5 x10^3uL (1.8-7.7); NEUT % 66 % (31-73); PLATELET COUNT 166 x10^3/uL (140-400); RED BLOOD COUNT 4.45 x10^6/uL (3.50-5.40); RED CELL DISTRIBUTION WIDTH 14.4 % (11.5-14.5); WHITE BLOOD COUNT 5.3 x10^3/uL (4.0-11.0)
[2021-01-10 05:16] LABS: BACTERIA,URINE 0 /HPF (0-FEW); BILIRUBIN,URINE NEG (NEG); CLARITY,URINE CLEAR; COLOR,URINE YELLOW; GLUCOSE,URINE NEG (NEG); NITRITE,URINE NEG (NEG); RBC,URINE 0 /HPF (0-2); SQUAMOUS EPITHELIAL CELL,UR FEW /LPF; UROBILINOGEN,URINE 0.2 mg/dL (0.2 mg/dL); WBC,URINE OCC /HPF (0-4)
[2021-01-10 05:18] LABS: CALCIUM 9.3 mg/dL (8.5-10.1); CREATININE 1.3 mg/dL (0.6-1.0); GFR 38.8; POTASSIUM 5.5 mmol/L (3.5-5.1)
--- NOTE | 2021-01-10 05:34 | RAD ---
EXAM: CTA HEAD AND NECK W/WO CONTRAST DATE: 01/10/2021 4:45 AM INDICATION: DOAN on eliquis TECHNIQUE: CTA angiogram of the head and neck was obtained after IV bolus administration of 100 cc of Omnipaque 350. The images were sent to workstation and multiplanar reconstructions were obtained. M ultiplanar reconstruction images to include MIP and 3-D reconstruction images are submitted. One or more of the following dose reduction techniques were utilized: Automated exposure control (AEC ), Adjustment of mA and/or kV according to patient size, Use of iterative reconstruction technique serna ch as ASiR, CT scan done according to ALARA and image gently/image wisely COMPARISON: Noncontrast CT head done earlier the same day. FINDINGS: Motion artifact degrades image quality. CTA Head: The visualized distal internal carotid arteries, anterior and middle cerebral arteries are patent and normal caliber. The distal vertebral arteries, basilar artery, and posterior cerebral arteries are p atent and normal caliber. No aneurysm or arteriovenous malformation is seen. CTA Neck: Right carotid: The right common carotid artery is patent and normal caliber. Atherosclerosis of the c arotid bifurcation. 70 percent stenosis of the right internal carotid artery per NASCET criteria. The right external carotid artery is patent. Left carotid: The left common carotid artery is patent and normal caliber. Atherosclerosis of the car otid bifurcation. 30 percent stenosis of the left internal carotid artery per NASCET criteria. The le ft external carotid artery is patent. Right vertebral: The right vertebral artery is patent and normal caliber. Left vertebral: The left vertebral artery is patent and normal caliber. The visualized portions of the aortic arch are normal. The origins of the brachiocephalic and subclav davina arteries are normal. No cervical lymphadenopathy. The thyroid gland is normal. The parotid and submandibular glands are no rmal. The visualized aerodigestive tract is unremarkable. Moderate multilevel degenerative disc height loss. Multilevel disc protrusions and marginal osteophyt es results in multilevel spinal canal stenosis. Multilevel uncovertebral and facet arthrosis with mul tilevel neural foraminal narrowing. The visualized portions of the lungs are clear. IMPRESSION: 1. No intracranial large vessel occlusion. 2. Atherosclerosis of the cervical ICAs with 70 percent stenosis on the right and 30 percent stenosis on the left. PQRS Compliance Statement - Stenosis calculations for CT, MR and conventional angiography are based u daisy measurement of the distal ICA diameter in accordance with the NASCET methodology. Electronically signed by: Franck Stewart MD (01/10/2021 5:32 AM) ALEXANDRO
[2021-01-10] MEDS ORDERED: MORPHINE SULFATE 2 MG/ML DISP.SYRIN. IV ONE (06:00)
[2021-01-10] MEDS ORDERED: diphenhydrAMINE 50 MG/ML VIAL IVP ONE (06:00)
[2021-01-10] MEDS ORDERED: IV RINGERS SOLUTION,LACTATED 1,000 ML IV ONE (06:00)
[2021-01-10 08:48] VITALS: BP 158/76
[2021-01-10] MEDS ORDERED: VITA400C37 PO (09:39)
[2021-01-10] MEDS ORDERED: CALC-497 PO (09:39)
[2021-01-10] MEDS ORDERED: [UNRECOGNIZED DRUG - CODE] PO (09:39)
[2021-01-10] MEDS ORDERED: LEVO88CA3 PO (09:39)
[2021-01-10] MEDS ORDERED: DRON400T6 PO (09:39)
[2021-01-10] MEDS ORDERED: ATORVASTATIN CALCIUM 20 MG TABLET PO SCH ×2 (10:15→21:00)
[2021-01-10] MEDS ORDERED: APIXABAN 5 MG TABLET. PO SCH (10:15)
[2021-01-10] MEDS ORDERED: VITAMIN E 200 UNIT CAPSULE. PO SCH (10:15)
[2021-01-10] MEDS: LEVOTHYROXINE 88 MCG TABLET PO SCH (10:25)
[2021-01-10] MEDS: OMEGA-3 FATTY ACIDS/FISH OIL 1,000 MG CAPSULE. PO SCH (10:25)
[2021-01-10] MEDS: APIXABAN 2.5 MG TABLET PO SCH ×2 (10:25→21:32)
[2021-01-10] MEDS: LISINOPRIL 20 MG TABLET PO SCH (10:25)
[2021-01-10] MEDS: CALCIUM CARBONATE 500 MG TABLET PO SCH ×2 (10:25→21:32)
[2021-01-10] MEDS: MULTIVITAMIN I-VITE TABLET. PO SCH (10:25)
[2021-01-10] MEDS: CHOLECALCIFEROL (VITAMIN D3) 1,000 UNIT TABLET PO SCH (10:25)
[2021-01-10] MEDS: DRONEDARONE HCL 400 MG TABLET PO SCH ×2 (10:26→21:31)
[2021-01-10 11:22] VITALS: BP 132/72
--- NOTE | 2021-01-10 11:35 | NUR ---
Admission Note Patient admitted for emergency department to medical floor. Patient is alert and orientated x4, assessment done, medications reviewed, plan or care discussed, orientation to unit. All questions answered in full, no acute concerns at this time.
[2021-01-10 14:51] VITALS: BP 107/65
--- NOTE | 2021-01-10 15:01 | HP ---
ADMIT DATE: 01/10/2021 HISTORY OF PRESENT ILLNESS: The patient is an 85-year-old female patient who came to the Emergency Room with a complaint of severe headache that apparently awakened her about 2 hours prior to arrival to the Emergency Room with the whole head headache 4/10, dull, aching in nature, states that she lives at home alone and decided to call the ambulance because she knew she is in blood thinner and it was told her that if she had a headache and something happened, nobody would call the ambulance for her. She wanted to come in and get checked out. She denied any blurring of vision. Denied any tingling, numbness or weakness. She states since arriving in the Emergency Department, it has gotten a little better. Denies any change in vision, neck pain, chest pain, shortness of breath. She was able to sit, stand and walk without any difficulty. She was extensively evaluated in the Emergency Room and has had a CT scan of the head which basically showed that there is no acute intracranial process, moderate cerebral volume loss, mild chronic small vessel ischemic disease. She was found also to be mildly dehydrated. She has hyperkalemia and slightly elevated serum creatinine for which she was started on IV fluid. As she continued to complain of headache, she underwent CT angio of the head and neck, which was also unremarkable, showed no intracranial large vessel occlusion, atherosclerosis, cervical internal carotid artery with 70% stenosis in the right and 30% on the left. The patient was treated with IV fluid and morphine as well as Tylenol and she was admitted for further evaluation. She did receive a liter of fluid and was continued on all her medications. PAST MEDICAL HISTORY: Significant for hypertension, atrial fibrillation, hyperlipidemia, remote history of hepatitis A and hypothyroidism. PAST SURGICAL HISTORY: Significant for appendectomy, left mastectomy and breast reconstruction surgery, back surgery, bilateral cataract extraction. ALLERGIES: She is allergic to FLUOROURACIL, VENOM and HONEY BEE. MEDICATIONS: She is currently on the following medication: She is on apixaban 5 mg twice a day, dronedarone, Multaq 400 mg twice a day, atorvastatin calcium 40 mg at bedtime, lisinopril 20 mg daily, calcium carbonate, and vitamin D3 one tablet twice a day, levothyroxine, sodium 88 mcg once a day, vitamin D 400 units once a day, and multivitamin one tablet once a day, omega 3 fatty acids 1 capsule twice a day. FAMILY HISTORY: She has one sister alive at age of 81 and lives in [place], [place]. She has two sisters , one because of melanoma and the other, she does not know the cause of her . She has two brothers who are , one because of lung cancer and one because of myocardial infarction. Her father in his 70s because of myocardial infarction. Mother at age of 94 because of old age. SOCIAL HISTORY: She is , lives alone, has no children. She has never smoked, does not drink alcohol or use any illicit drugs. 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 REVIEW OF SYSTEMS: Other than headache, denied any blurring of vision, tingling, numbness. Denied any weakness. PHYSICAL EXAMINATION: GENERAL: On arrival to the Emergency Room, she looked well and was clearly in no apparent respiratory distress slightly. There is no pallor, jaundice, cyanosis, or thyromegaly. No jugular venous distention. No limb edema. VITAL SIGNS: Her heart rate was 68, blood pressure is 158/76, temperature was 98, respiratory rate was 15 and oxygen saturation was 97%. HEAD, EYES, EARS, NOSE, AND THROAT: Normocephalic, atraumatic. NECK: Supple. HEART: Showed normal first and second heart sounds, no gallop or murmur. CHEST: Clear to auscultation. No crepitation or rhonchi. ABDOMEN: Distended, soft, nontender. NEUROLOGIC: She was awake, alert, responding appropriately. Cranial nerves intact. She moves extremities without difficulty. She ambulates without assistance or assistive devices. LABORATORY DATA: On arrival showed a white cell count 5300, hemoglobin 13, hematocrit 40, MCV 91, and platelet count of 166,000. Serum sodium was 144, potassium 5.5, chloride 108, bicarbonate 25, anion gap of 11, BUN 34, creatinine 1.3. Estimated GFR was 31 mL per minute, her glucose was 87, calcium was 9.3. In summary, this is an 85-year-old female patient who was admitted with sudden onset of severe headache that awakened her from sleep. However, CT scan of the head and CT angio of the head and neck reveals no abnormality. She was noted to have a mildly deranged kidney function and hyperkalemia. She has a multitude of medical problems including hypertension, atrial fibrillation, hyperlipidemia and hypothyroidism. My plan is to continue with rehydration. We will repeat all her lab work tomorrow and if they remain improved and stabilized, she can be discharged home. I will also consult physical and occupational therapy. JUNE DR: Aubrey TID: [id number]
--- NOTE | 2021-01-10 16:17 | NUR ---
Shift Note Patient had an uneventful shift, no acute concerns, patient headache has resolved. Patient took medications well, no PRN through shift.
[2021-01-10] MEDS ORDERED: CALCIUM CARBONATE PO SCH (21:00)
[2021-01-10] MEDS ORDERED: VITAMIN D3 PO SCH (21:00)
[2021-01-10] MEDS ORDERED: DRONEDARONE HCL 400 MG TABLET PO SCH (21:00)
[2021-01-10 21:43] VITALS: BP 127/74
[2021-01-11] MEDS: LEVOTHYROXINE 88 MCG TABLET PO SCH (06:00)
[2021-01-11 06:05] VITALS: BP 135/73
[2021-01-11 07:04] LABS: C REACTIVE PROTEIN 0.9 mg/L (0-3.3); CALCIUM 9.2 mg/dL (8.5-10.1); CREATININE 1.2 mg/dL (0.6-1.0); GFR 42.6; POTASSIUM 4.7 mmol/L (3.5-5.1)
[2021-01-11] MEDS: MULTIVITAMIN I-VITE TABLET. PO SCH (08:11)
[2021-01-11] MEDS: OMEGA-3 FATTY ACIDS/FISH OIL 1,000 MG CAPSULE. PO SCH (08:11)
[2021-01-11] MEDS: APIXABAN 2.5 MG TABLET PO SCH (08:11)
[2021-01-11] MEDS: CHOLECALCIFEROL (VITAMIN D3) 1,000 UNIT TABLET PO SCH (08:12)
[2021-01-11] MEDS: LISINOPRIL 20 MG TABLET PO SCH (08:12)
[2021-01-11] MEDS: CALCIUM CARBONATE 500 MG TABLET PO SCH (08:15)
[2021-01-11] MEDS: DRONEDARONE HCL 400 MG TABLET PO SCH (08:15)
[2021-01-11] MEDS ORDERED: VITAMIN E. 400 UNIT CAPSULE. PO SCH (09:00)
[2021-01-11 11:00] VITALS: BP 96/66
--- NOTE | 2021-01-11 13:36 | NUR ---
NURSING NOTE DISCHARGE PT DISCHARGED HOME VIA AMBULATION ACCOMPANIED BY SELF PICKED UP BY FRIEND. PT GIVEN WRITTEN AND VERBAL DISCHARGE INSTRUCTIONS BY LORENZO WALL. MAE HARMAN.
--- NOTE | 2021-01-11 16:28 | DS ---
DATE OF DISCHARGE: 01/11/2021 HOSPITAL COURSE: The patient is an 85-year-old female patient who was admitted with a headache; however, she was extensively investigated and all her imaging studies and inflammatory markers were all within normal range. She was also noted to have mild hyperkalemia and acute kidney injury that has resolved. Her potassium is 4.7, creatinine is down to 1.2 and therefore, a decision was made to discharge her home to follow up with her primary care physician and primary manager maintenance. PHYSICAL EXAMINATION: GENERAL: When I examined her this afternoon, she looked well and was clearly in no apparent respiratory distress. There was no pallor, jaundice, cyanosis, or thyromegaly. No jugular venous distention. No limb edema. VITAL SIGNS: Her heart rate was 70, blood pressure is 96/66, temperature was 98.7, respiratory rate was 14 and oxygen saturation was 95%. HEAD, EYES, EARS, NOSE, AND THROAT: Normocephalic, atraumatic. NECK: Supple. HEART: Showed normal first and second heart sounds, no gallop, rub or murmur. CHEST: Clear to auscultation, no crepitation or rhonchi. ABDOMEN: Distended, soft, nontender. NEUROLOGIC: She is awake, alert, responding appropriately. Cranial nerves intact. She moves extremities without difficulty. She ambulates without assistance or assistive devices. LABORATORY DATA: Her lab work this morning showed that her serum sodium 145, potassium 4.7, chloride 110, bicarbonate 27, anion gap of 8, BUN 26, creatinine 1.2. Estimated GFR was 42 mL per minute. Glucose 76, calcium was 9.2. Her C-reactive protein was 0.9 and her sed rate was 9 mm per hour. DISCHARGE MEDICATIONS: The patient was discharged on apixaban 5 mg twice a day, atorvastatin calcium 40 mg at bedtime, calcium carbonate with vitamin D3 one tablet twice a day, dronedarone, Multaq 400 mg twice a day, levothyroxine sodium 88 mcg once a day, lisinopril 20 mg once a day, multivitamin 1 tablet once a day, [place]-3 fatty acids 1 capsule twice a day and vitamin E 400 units once a day. FINAL DISCHARGE DIAGNOSES: Headache, probably tension, resolved; mild hyperkalemia, resolved; acute kidney injury, resolved; hypertension; atrial fibrillation; hyperlipidemia and hypothyroidism. KRISTAL DR: Aubrey TID: [id number]
== END 2021-01-11 13:38 | disposition home or self-care (01) ==
LOC: ER 02:26 → 1 SOUTH 06:04 → INTOOBSV 06:04
PROVIDERS: ADMIT Hospitalist; ATTEND Hospitalist
DX: R51.9 Headache, unspecified (principal); N17.9 Acute kidney failure, unspecified; E87.5 Hyperkalemia; I10 Essential (primary) hypertension; I48.91 Unspecified atrial fibrillation; E78.5 Hyperlipidemia, unspecified; E86.0 Dehydration; E03.9 Hypothyroidism, unspecified; Z86.19 Personal history of other infectious and parasitic diseases; Z90.49 Acquired absence of other specified parts of digestive tract; Z98.41 Cataract extraction status, right eye; Z98.42 Cataract extraction status, left eye; Z79.899 Other long term (current) drug therapy; Z98.890 Other specified postprocedural states; Z79.01 Long term (current) use of anticoagulants; Z90.12 Acquired absence of left breast and nipple
CPT/HCPCS: 36415; 70450; 70496; 70498; 80048; 81001; 84484; 85025; 85651; 86140; 93005; 96374; 96375; 97161; 97165; 97530; 99285; G0378; J1200; J2270; J7120; Q0162; Q0163; Q9967; 96361; G0379

== ENCOUNTER 2021-01-14 10:56 | Emergency (ER) | payer MEDICARE, OTHER ==
[~2021-01-14] VITALS: Ht 165.1 cm; Wt 65.9 kg
[~2021-01-14 10:56] MED LIST changes: +CALC-497 PO; +LEVO88CA3 PO; +VITA400C37 PO; +[UNRECOGNIZED DRUG - CODE] PO
[2021-01-14 11:12] VITALS: BP 147/76
--- NOTE | 2021-01-14 11:24 | PHYS DOC ---
Past History Past Medical History: A-Fib, Hypertension Additional Past Medical Histor: syncope Past Surgical History: No Surgical History Additional Past Surgical Histo: mastectomy Smoking: Non-smoker Alcohol Use: None Drug Use: None General Adult EDM: Chief Complaint: HEADACHE HPI: HPI: 85-year-old female presents with elevated blood pressure. Patient was seen in this emergency room and admitted to our hospital recently with elevated blood pressure. She had a head CT and a CTA of the head and neck at that time. There were no significant findings. The patient took her blood pressure medicine this morning which was lisinopril 20 mg. She took her blood pressure an unknown amount of time after that and it was 180s over 80s. She normally has well- controlled blood pressure with this medicine. This is the reason she came to the hospital a few days ago and was admitted. On arrival to the ED, her blood pressure is 147/76. She denies headache, fever, chills. She has no other complaints at this time. Review of Systems: Review of Systems: Constitutional: Denies fever or chills. Elevated blood pressure. Eyes: Denies change in visual acuity HENT: Denies nasal congestion or sore throat Respiratory: Denies cough or shortness of breath Cardiovascular: Denies chest pain or edema GI: Denies abdominal pain, nausea, vomiting, bloody stools or diarrhea : Denies dysuria Musculoskeletal: Denies back pain or joint pain Integument: Denies rash Neurologic: Denies headache, focal weakness or sensory changes Endocrine: Denies polyuria or polydipsia Lymphatic: Denies swollen glands Psychiatric: Denies depression or anxiety Allergies: Allergies: Allergies Coded Allergies Type Severity Reaction Last Updated Verified fluorouracil Allergy Intermediate Rash 05/19/20 Yes venom-honey bee Allergy Intermediate SYNCOPE 05/19/20 Yes Physical Exam: PE: Constitutional: Well developed, well nourished, no acute distress, non-toxic appearance. [] HENT: Normocephalic, atraumatic, bilateral external ears normal, oropharynx moist, no oral exudates, nose normal. [] Eyes: PERRLA, EOMI, conjunctiva normal, no discharge. [] Neck: Normal range of motion, no tenderness, supple, no stridor. [] Cardiovascular: Heart rate regular rhythm, no murmur [] Lungs & Thorax: Bilateral breath sounds clear to auscultation [] Abdomen: Bowel sounds normal, soft, no tenderness, no masses, no pulsatile masses. [] Skin: Warm, dry, no erythema, no rash. [] Back: No tenderness, no CVA tenderness. [] Extremities: No tenderness, no cyanosis, no clubbing, ROM intact, no edema. [] Neurologic: Alert and oriented X 3, normal motor function, normal sensory function, no focal deficits noted. [] Psychologic: Affect normal, judgement normal, mood normal. [] Current Patient Data: Vital Signs: Vital Signs Date Time Temp Pulse Resp B/P (MAP) Pulse Ox O2 Delivery O2 Flow Rate FiO2 01/14/21 11:12 98.6 97 20 147/76 97 Room Air EKG: EKG: [] Radiology/Procedures: Radiology/Procedures: [] Heart Score: C/O Chest Pain: N/A Risk Factors: Risk Factors: DM, Current or recent (<one month) smoker, HTN, HLP, family history of CAD, obesity. Risk Scores: Score 0 - 3: 2.5% MACE over next 6 weeks - Discharge Home Score 4 - 6: 20.3% MACE over next 6 weeks - Admit for Clinical Observation Score 7 - 10: 72.7% MACE over next 6 weeks - Early Invasive Strategies Course & Med Decision Making: Course & Med Decision Making Pertinent Labs and Imaging studies reviewed. (See chart for details) The patient's labs are unremarkable except for mildly elevated creatinine 1.4. Review of her chart shows she has had similar numbers previously. She has had no further elevated blood pressures in the ED. I suspect her blood pressure was high from activity or that her blood pressure medicine had not kicked in yet. She is stable for discharge at this time. [] Dragon Disclaimer: Dragon Disclaimer: This electronic medical record was generated, in whole or in part, using a voice recognition dictation system. Departure Departure: Referrals: MANJU PRESCOTT MD (PCP) ALEXEY SORENSEN DO Jan 14, 2021 11:24
[2021-01-14 11:52] LABS: BASO # 0.1 x10^3/uL (0.0-0.2); BASO % 1 % (0-3); EOS % 1 % (0-3); HEMATOCRIT 39.1 % (36.0-47.0); HEMOGLOBIN 12.9 g/dL (12.0-15.5); LYMPH # 1.2 x10^3/uL (1.0-4.8); LYMPH % 22 % (24-48); MEAN CORPUSCULAR HEMOGLOBIN 30 pg (25-35); MEAN CORPUSCULAR HGB CONC 33 g/dL (31-37); MEAN CORPUSCULAR VOLUME 91 fL (79-100); MONO # 0.4 x10^3/uL (0.0-1.1); MONO % 7 % (0-9); NEUT # 3.6 x10^3uL (1.8-7.7); NEUT % 69 % (31-73); PLATELET COUNT 186 x10^3/uL (140-400); RED BLOOD COUNT 4.31 x10^6/uL (3.50-5.40); RED CELL DISTRIBUTION WIDTH 14.7 % (11.5-14.5); WHITE BLOOD COUNT 5.3 x10^3/uL (4.0-11.0)
[2021-01-14 12:01] LABS: CREATININE 1.4 mg/dL (0.6-1.0); GFR 35.7; POTASSIUM 4.7 mmol/L (3.5-5.1)
[2021-01-14 12:08] LABS: ALBUMIN 3.9 g/dL (3.4-5.0); ALBUMIN/GLOBULIN RATIO 1.2 (1.0-1.7); TOTAL BILIRUBIN 0.4 mg/dL (0.2-1.0); TOTAL PROTEIN 7.1 g/dL (6.4-8.2)
[2021-01-14 12:33] LABS: BILIRUBIN,URINE NEG (NEG); CLARITY,URINE CLEAR; COLOR,URINE YELLOW; GLUCOSE,URINE NEG (NEG); NITRITE,URINE NEG (NEG)
[2021-01-14 12:42] LABS: BACTERIA,URINE 0 /HPF (0-FEW); RBC,URINE 0 /HPF (0-2); SQUAMOUS EPITHELIAL CELL,UR FEW /LPF; WBC,URINE OCC /HPF (0-4)
== END 2021-01-14 13:25 | disposition home or self-care (01) ==
LOC: ER 10:56
DX: I10 Essential (primary) hypertension (principal); R51.9 Headache, unspecified
CPT/HCPCS: 36415; 80053; 81001; 85025; 99283

== ENCOUNTER → 2021-03-06 | Outpatient (CLI) | payer MEDICARE, OTHER ==
[2021-03-06 10:48] LABS: ALBUMIN/GLOBULIN RATIO 1.2 (1.0-1.7); CALCIUM 9.3 mg/dL (8.5-10.1); CREATININE 1.5 mg/dL (0.6-1.0); GFR 32.9; POTASSIUM 4.4 mmol/L (3.5-5.1); TOTAL BILIRUBIN 0.6 mg/dL (0.2-1.0); TOTAL PROTEIN 7.3 g/dL (6.4-8.2)
== END ==
LOC: LAB 07:36
PROVIDERS: ATTEND Internal Medicine Cardiovascular Disease
DX: I10 Essential (primary) hypertension (principal); E78.2 Mixed hyperlipidemia
CPT/HCPCS: 36415; 80053; 80061; 83735

== ENCOUNTER → 2021-05-18 | Outpatient (CLI) | payer MEDICARE, OTHER ==
[~2021-05-18] MED LIST changes: -CITA10TA4 PO; +CITA10TA5 PO; -LISI-517 PO; +LISI5TAB15 PO
--- NOTE | 2021-05-18 14:25 | RAD ---
INDICATION : Routine Screening. COMPARISON: Multiple priors including May 2020 TECHNIQUE: Standard mammogram screening views of the right breast was obtained. CAD was utilized. FINDINGS: The breasts are heterogenous density. No definite suspicious mass. Biopsy clip as well as scattered calcifications are again seen. IMPRESSION: BI-RADS Category 2: Benign findings. Recommend screening follow-up in 1 year. The patient was placed into the recall system with a suggested recall date for follow up imaging. Mammography is the most sensitive method for finding small breast cancers, but it does not detect the m all and is not a substitute for careful clinical examination. A negative mammogram does not negate a clinically suspicious finding and should not result in delay in biopsying a clinically suspicious abnormality. Electronically signed by: Herber Pleitez MD (05/18/2021 2:22 PM) [id number]
== END ==
LOC: MAMMO 09:45
PROVIDERS: ATTEND Internal Medicine
DX: Z12.31 Encounter for screening mammogram for malignant neoplasm of breast (principal)
CPT/HCPCS: 77067

== ENCOUNTER → 2021-08-13 | Outpatient (CLI) | payer MEDICARE, OTHER ==
--- NOTE | 2021-08-13 12:41 | RAD ---
EXAM: Bilateral carotid duplex with waveform analysis. CLINICAL HISTORY: Peripheral vascular disease. TECHNIQUE: Longitudinal and transverse sonographic images of the bilateral carotid arteries was perfo rmed utilizing grayscale, color and spectral Doppler techniques. COMPARISON: CTA of the head and neck January 10, 2021 FINDINGS: None available there is diffuse aphthous chronic vascular disease, most prominent at the bi lateral carotid bulbs. Some visual narrowing appears be present in the proximal right internal caroti d artery on color Doppler imaging. This is associated with elevation of velocity to 161 cm/s. No othe r focal elevations in velocity suggestive of hemodynamically significant stenosis are identified. Vertebral arterial flow was antegrade bilaterally. Right: PSV CCA (cm/s): 89 PSV ICA (cm/s): 161 EDV ICA (cm/s): 27 ICA/CCA Ratio: 1.8 Left: PSV CCA (cm/s): 67 PSV ICA (cm/s): 83 EDV ICA (cm/s): 20 ICA/CCA Ratio: 1.24 IMPRESSION: Atherosclerotic plaque involving most predominantly bilateral carotid bulbs, right greater than left. There is narrowing in the proximal right internal carotid artery with velocity elevation at least 50 % stenosis. Note the prior CT a imaging suggests greater than 70 % stenosis. Vascular surgical consul tation recommended. Consensus Panel Adams-scale and Doppler US Criteria for Diagnosis of ICA Stenosis Degree of Stenosis (%) ICA PSV (Cm/sec) Plaque Estimate (%)* Normal <125 None <50 <125 <50 50-69 125-230 >50 >70 but < near occlusion >230 >50 Near occlusion High, low, or undetectable Visible Total occlusion Undetectable Visible, no detectable lumen *Plaque estimate (diameter reduction) with adams-scale and color Doppler US Degree of Stenosis (%) ICA/CCA PSV Ratio ICA EDV (cm/sec) Normal <2.0 <40 <50 <2.0 <40 50-69 2.0-4.0 40-100 >70 but < near occlusion >4.0 >100 Near occlusion Variable Variable Total occlusion Not applicable Not applicable Electronically signed by: Tony Saucedo MD (08/13/2021 12:38 PM) [id number]
== END ==
LOC: US 10:10
PROVIDERS: ATTEND Internal Medicine
DX: I65.23 Occlusion and stenosis of bilateral carotid arteries (principal)
CPT/HCPCS: 93880

== ENCOUNTER 2021-09-22 13:41 | Emergency (ER) | payer MEDICARE, OTHER ==
[~2021-09-22] VITALS: Ht 165.1 cm; Wt 63.6 kg
--- NOTE | 2021-09-22 14:28 | RAD ---
EXAM: Head CT without contrast. HISTORY: Headache. TECHNIQUE: Computed tomographic images of the head were obtained without contrast. *One or more of the following individualized dose reduction techniques were utilized for this examina tion: 1. Automated exposure control. 2. Adjustment of the mA and/or kV according to patient size. 3. Use of iterative reconstruction technique. COMPARISON: 01/10/2021. FINDINGS: There is no acute or subacute extra-axial or intraparenchymal hemorrhage. There is no mass effect or midline shift. There is no hydrocephalus. There are areas of decreased attenuation within the cerebral white matter, nonspecific and likely rel ated to chronic small vessel disease. There is cerebral volume loss with increased bifrontal extra-ax ial space. There is an air-fluid level within the visualized left maxillary sinus. There is left maxillary sinus wall thickening due to chronic sinusitis. There is evidence of lens surgery. The mastoid air cells a re clear. IMPRESSION: 1. No acute intracranial finding. Note is made that MRI is more sensitive for acute infarction. 2. Bilateral cerebral white matter changes, likely due to chronic small vessel disease. 3. Cerebral volume loss. Electronically signed by: Heena Duff MD (09/22/2021 2:26 PM) [id number]
[2021-09-22 14:29] LABS: BASO % 1 % (0-3); EOS % 1 % (0-3); HEMATOCRIT 40.2 % (36.0-47.0); HEMOGLOBIN 13.2 g/dL (12.0-15.5); LYMPH % 25 % (24-48); MEAN CORPUSCULAR HEMOGLOBIN 30 pg (25-35); MEAN CORPUSCULAR HGB CONC 33 g/dL (31-37); MEAN CORPUSCULAR VOLUME 92 fL (79-100); MONO # 0.3 x10^3/uL (0.0-1.1); MONO % 8 % (0-9); NEUT # 2.7 x10^3uL (1.8-7.7); NEUT % 65 % (31-73); PLATELET COUNT 179 x10^3/uL (140-400); RED BLOOD COUNT 4.37 x10^6/uL (3.50-5.40); RED CELL DISTRIBUTION WIDTH 13.6 % (11.5-14.5); WHITE BLOOD COUNT 4.1 x10^3/uL (4.0-11.0)
[2021-09-22 14:36] LABS: CALCIUM 9.3 mg/dL (8.5-10.1); CREATININE 1.7 mg/dL (0.6-1.0); GFR 28.4; POTASSIUM 4.8 mmol/L (3.5-5.1)
[2021-09-22 14:41] LABS: ALBUMIN 3.7 g/dL (3.4-5.0); ALBUMIN/GLOBULIN RATIO 1.2 (1.0-1.7); TOTAL BILIRUBIN 0.4 mg/dL (0.2-1.0); TOTAL PROTEIN 6.9 g/dL (6.4-8.2)
[2021-09-22 15:12] LABS: CLARITY,URINE CLEAR; COLOR,URINE YELLOW; GLUCOSE,URINE NEG (NEG)
[2021-09-22 15:13] LABS: BACTERIA,URINE 0 /HPF (0-FEW); NITRITE,URINE NEG (NEG); RBC,URINE 0 /HPF (0-2); SQUAMOUS EPITHELIAL CELL,UR OCC /LPF; UROBILINOGEN,URINE 0.2 mg/dL (0.2 mg/dL); WBC,URINE OCC /HPF (0-4)
[2021-09-22 15:18] VITALS: BP 129/59
--- NOTE | 2021-09-22 15:33 | PHYS DOC ---
Past History Past Medical History: A-Fib, Hypertension Additional Past Medical Histor: syncope Past Surgical History: No Surgical History Additional Past Surgical Histo: mastectomy Smoking: Non-smoker Alcohol Use: None Drug Use: None Adult General Chief Complaint Chief Complaint: HEADACHE HPI HPI Patient is a 86 year old female who presents with headache. The patient reports 1 day history of dull frontal headache. She states the headache was not sudden in onset, not the worst headache of her life, but is atypical for her. She denies associated fever, neck stiffness, vision changes, slurred speech, extremity numbness/weakness, vomiting. Denies recent falls or trauma. She reports history of hypertension, states she has been compliant with her medications, but was concerned that the blood pressure cuff cycled several times without giving a reading this morning. She also takes Eliquis for atrial fibrillation. Review of Systems Review of Systems Constitutional: Denies fever or chills Eyes: Denies change in visual acuity HENT: Denies nasal congestion or sore throat Respiratory: Denies cough or shortness of breath Cardiovascular: Denies chest pain or edema GI: Denies abdominal pain, nausea, vomiting Musculoskeletal: Denies neck pain, back pain or joint pain Integument: Denies rash or skin lesions Neurologic: Reports headache, denies focal weakness or sensory changes All other systems were reviewed and found to be within normal limits, except as documented in this note. Allergies Allergies Allergies Coded Allergies Type Severity Reaction Last Updated Verified fluorouracil Allergy Intermediate Rash 05/19/20 Yes venom-honey bee Allergy Intermediate SYNCOPE 05/19/20 Yes Physical Exam Physical Exam Constitutional: Well developed, well nourished, no acute distress, non-toxic appearance. HENT: Normocephalic, atraumatic, bilateral external ears normal, oropharynx moist, no oral exudates, nose normal. Eyes: PERRLA, EOMI, conjunctiva normal, no discharge. Neck: Normal range of motion, no midline c-spine tenderness, nu nuchal rigidity, no stridor. Cardiovascular: Regular rate, no murmurs Lungs & Thorax: Lungs clear to auscultation bilaterally, no wheezing, no respiratory distress. Abdomen: nondistended Skin: Warm, dry, no erythema, no rash. Back: No spinal tenderness or step offs. Extremities: No tenderness, no edema. Neurologic: Alert and oriented X 3, cranial nerves 2-12 grossly intact, symmetric strength/sensation to upper and lower extremities. Psychologic: Affect normal Current Patient Data Vital Signs Vital Signs Date Time Temp Pulse Resp B/P (MAP) Pulse Ox O2 Delivery O2 Flow Rate FiO2 09/22/21 13:54 97.8 78 16 156/63 (94) 98 Room Air Lab Results Laboratory Tests Test 09/22/21 14:13 09/22/21 14:27 White Blood Count 4.1 x10^3/uL (4.0-11.0) Red Blood Count 4.37 x10^6/uL (3.50-5.40) Hemoglobin 13.2 g/dL (12.0-15.5) Hematocrit 40.2 % (36.0-47.0) Mean Corpuscular Volume 92 fL (79-100) Mean Corpuscular Hemoglobin 30 pg (25-35) Mean Corpuscular Hemoglobin Concent 33 g/dL (31-37) Red Cell Distribution Width 13.6 % (11.5-14.5) Platelet Count 179 x10^3/uL (140-400) Neutrophils (%) (Auto) 65 % (31-73) Lymphocytes (%) (Auto) 25 % (24-48) Monocytes (%) (Auto) 8 % (0-9) Eosinophils (%) (Auto) 1 % (0-3) Basophils (%) (Auto) 1 % (0-3) Neutrophils # (Auto) 2.7 x10^3uL (1.8-7.7) Lymphocytes # (Auto) 1.0 x10^3/uL (1.0-4.8) Monocytes # (Auto) 0.3 x10^3/uL (0.0-1.1) Eosinophils # (Auto) 0.0 x10^3/uL (0.0-0.7) Basophils # (Auto) 0.0 x10^3/uL (0.0-0.2) Sodium Level 138 mmol/L (136-145) Potassium Level 4.8 mmol/L (3.5-5.1) Chloride Level 103 mmol/L (98-107) Carbon Dioxide Level 28 mmol/L (21-32) Anion Gap 7 (6-14) Blood Urea Nitrogen 32 mg/dL (7-20) H Creatinine 1.7 mg/dL (0.6-1.0) H Estimated GFR (Cockcroft-Gault) 28.4 BUN/Creatinine Ratio 19 (6-20) Glucose Level 101 mg/dL (70-99) H Calcium Level 9.3 mg/dL (8.5-10.1) Total Bilirubin 0.4 mg/dL (0.2-1.0) Aspartate Amino Transferase (AST) 19 U/L (15-37) Alanine Aminotransferase (ALT) 26 U/L (14-59) Alkaline Phosphatase 59 U/L (46-116) Total Protein 6.9 g/dL (6.4-8.2) Albumin 3.7 g/dL (3.4-5.0) Albumin/Globulin Ratio 1.2 (1.0-1.7) Urine Collection Type Clean catch Urine Color Yellow Urine Clarity Clear Urine pH 7.5 Urine Specific [place] 1.015 Urine Protein Neg (NEG-TRACE) Urine Glucose (UA) Neg mg/dL (NEG) Urine Ketones (Stick) Neg mg/dL (NEG) Urine Blood Trace (NEG) Urine Nitrite Neg (NEG) Urine Bilirubin Neg (NEG) Urine Urobilinogen Dipstick 0.2 mg/dL (0.2 mg/dL) Urine Leukocyte Esterase Neg (NEG) Urine RBC 0 /HPF (0-2) Urine WBC Occ /HPF (0-4) Urine Squamous Epithelial Cells Occ /LPF Urine Bacteria 0 /HPF (0-FEW) EKG EKG [] Radiology/Procedures Radiology/Procedures PROCEDURE: CT HEAD WO CONTRAST EXAM: Head CT without contrast. HISTORY: Headache. TECHNIQUE: Computed tomographic images of the head were obtained without contrast. *One or more of the following individualized dose reduction techniques were utilized for this examination: 1. Automated exposure control. 2. Adjustment of the mA and/or kV according to patient size. 3. Use of iterative reconstruction technique. COMPARISON: 01/10/2021. FINDINGS: There is no acute or subacute extra-axial or intraparenchymal hemorrhage. There is no mass effect or midline shift. There is no hydrocephalus. There are areas of decreased attenuation within the cerebral white matter, nonspecific and likely related to chronic small vessel disease. There is cerebral volume loss with increased bifrontal extra-axial space. There is an air-fluid level within the visualized left maxillary sinus. There is left maxillary sinus wall thickening due to chronic sinusitis. There is evidence of lens surgery. The mastoid air cells are clear. IMPRESSION: 1. No acute intracranial finding. Note is made that MRI is more sensitive for acute infarction. 2. Bilateral cerebral white matter changes, likely due to chronic small vessel disease. 3. Cerebral volume loss. Electronically signed by: Heena Duff MD (09/22/2021 2:26 PM) [id number] DICTATED AND SIGNED BY: HEENA DUFF MD DATE: 09/22/21 142[] Heart Score C/O Chest Pain: No Risk Factors: Risk Factors: DM, Current or recent (<one month) smoker, HTN, HLP, family history of CAD, obesity. Risk Scores: Risk Factors: DM, Current or recent (<one month) smoker, HTN, HLP, family history of CAD, obesity. Course & Med Decision Making Course & Med Decision Making Pertinent Labs and Imaging studies reviewed. (See chart for details) Patient with headache that is unusual for her, concerns about blood pressure. BP mildly elevated in the ED, no focal findings on exam. Obtained head CT which shows chronic changes but no acute process. Her pain was well controlled. Comfortable with d/c home for BP monitoring, will follow up with primary care in 2-3 days. Instructed to return to ED for sudden/severe headache, fever, neck stiffness, focal neuro symptoms, any otherwise worsening condition. Discharged home in stable condition. [] Dragon Disclaimer Dragon Disclaimer This electronic medical record was generated, in whole or in part, using a voice recognition dictation system. Departure Departure: Impression: Primary Impression: Headache Disposition: HOME / SELF CARE / HOMELESS Condition: IMPROVED Referrals: MANJU PRESCOTT MD (PCP) Patient Instructions: General Headache Without Cause, [id number] Additional Instructions: You were seen in the emergency department today for headache. Your blood pressure was in the normal range here. You had a normal neurologic exam. Your labs and CT scan of your head did not show an obvious severe cause of your symptoms. Please rest, take Tylenol as needed for headache, be sure to drink plenty of fluids and eat regular meals. Follow-up with your primary care physician if not feeling better on Friday. Return to the emergency department for sudden onset of severe headache, worst headache of your life, new numbness or weakness in your arms or legs, difficulty speaking, vision changes, any otherwise worsening condition. LEVI BONILLA MD Sep 22, 2021 15:33
== END 2021-09-22 15:54 | disposition home or self-care (01) ==
LOC: ER 13:41
DX: R51.9 Headache, unspecified (principal); I48.91 Unspecified atrial fibrillation; I10 Essential (primary) hypertension; Z91.030 Bee allergy status; Z88.8 Allergy status to other drugs, medicaments and biological substances
CPT/HCPCS: 36415; 70450; 80053; 81001; 85025; 99284